=== PATIENT | male | born 1955 | race Caucasian/White ===

== ENCOUNTER 2018-10-09 11:26 | Emergency (ER) | payer BC, SELFPAY ==
[2018-10-09 11:58] VITALS: BP 140/90; PULSE 68; RESP 20; TEMP 36.6; O2SAT 98; BMI 26.0
--- NOTE | 2018-10-09 12:23 | ED.DIZZY ---
HPI - Dizziness <KELLY Tinoco - Last Filed: 10/09/18 22:29> General Chief Complaint: Dizziness Stated Complaint: Fall from vertigo/extreme back pain Time Seen by Provider: 10/09/18 12:05 Source: patient Mode of arrival: ambulatory Limitations: no limitations History of Present Illness HPI Narrative: 63-year-old male with history of borderline type 2 diabetes and is a nonsmoker here for complaint of having vertigo/dizziness last night causing have a ground level fall. He states he has had a history of having vertigo in the past. He states he has had vertigo on and off for the past couple of weeks. Fall happened last night at approximately midnight. He states that he was checking on the dog that was barking causing him having episode of dizziness with fall landing up against the bed frame. He reports pain into his thoracic back right rib cage and anterior ribcage where he believes he may landed on the bed frame. He states that he has been tolerating p.o. intake well with no nausea vomiting over the past couple of weeks. He denies any stressors or relievers of his dizziness/vertigo. He denies any headache. A denies any head injuries no neck pain. He is ambulatory into the emergency room. No loss of bladder or bowel control. Reports increased pain with palpation to the upper back and to the ribcage. He denies any syncope. MD complaint: dizziness and other Related Data Previous Rx's Medication Instructions Recorded hydrocodone-acetaminophen 1 tab PO Q6H PRN #10 tab 10/09/18 meclizine 25 mg PO BID-TID PRN #20 tab 10/09/18 Allergies Allergy/AdvReac Type Severity Reaction Status Date / Time No Known Drug Allergies Allergy Verified 10/09/18 12:03 Review of Systems <KELLY Tinoco - Last Filed: 10/09/18 22:29> Constitutional Denies chills, Denies fever(s), Denies lethargy and Denies weakness Eyes Denies change in vision, Denies eye discharge, Denies irritation and Denies loss of vision ENT Ears, Nose, Mouth, and Throat: Denies change in voice, Reports dizziness, Denies neck pain and Denies sore throat Cardiovascular Denies chest pain, Denies irregular heart rhythm, Denies lightheadedness, Denies palpitations, Denies dyspnea, Denies dyspnea on exertion and Denies orthopnea Respiratory Denies cough, Denies dyspnea, Denies dyspnea on exertion and Denies wheezing Gastrointestinal Gastrointestinal: Denies abdominal pain, Denies change in bowel habits, Denies diarrhea, Denies nausea and Denies vomiting Genitourinary Denies hematuria, Denies flank pain, Denies urinary incontinence and Denies urinary urgency Musculoskeletal Denies neck pain Comments: Pain into her thoracic back area and the right ribcage Neurologic Reports dizziness, Denies loss of vision and Denies weakness Endocrine Denies palpitations Hematologic/Lymphatic Denies easy bruising Allergic/Immunologic Denies wheezing Exam <KELLY Tinoco - Last Filed: 10/09/18 22:29> Initial Vital Signs Initial Vital Signs: Vital Signs Temperature 98 F 10/09/18 11:58 Pulse Rate 68 10/09/18 11:58 Respiratory Rate 20 10/09/18 11:58 Blood Pressure 140/90 10/09/18 11:58 Pulse Oximetry 98 10/09/18 11:58 Const General: cooperative and well developed Nutritional Appearance: well nourished Orientation: alert, awake, oriented x3 and not confused [facility] Mouth: oral mucosae normal and moist mucous membranes Eyes Conjunctivae: conjunctivae normal Sclera: sclerae normal Pupils: PERRL EOM: EOM intact bilaterally Neck Neck: normal visual inspection, trachea midline, No lymphadenopathy, No midline deformity and No JVD Lymphatic: No lymphedema Chest Other: Tenderness on palpation to anterior right chest and 2 right lateral chest wall. No signs of trauma. No ecchymosis. No deformities. Resp Effort & Inspection: normal respiratory effort, able to speak in complete sentences, no respiratory distress and no use of accessory muscles Auscultation: clear to auscultation bilaterally, no rales, no rhonchi and no wheezes Cardio Rate: regular rate Rhythm: regular rhythm Heart Sounds: no click, no gallops, no murmurs and no rubs Pulses: normal peripheral pulses GI Inspection: non-distended Palpation: soft, no hepatosplenomegaly, No guarding, No pulsatile mass and No tender Auscultation: normal bowel sounds Back/Spine/Pelvis Other: Tenderness on palpation to the paraspinals of the thoracic region no deformities no signs of trauma. Distal CMS is intact Skin General: no rashes or lesions noted, No jaundice and No petechiae Neuro General: alert, oriented x3, gait normal and no focal motor deficits Speech: speech normal <Leila Vallejo MD - Last Filed: 10/13/18 12:19> Initial Vital Signs Initial Vital Signs: Vital Signs Temperature 98 F 10/09/18 11:58 Pulse Rate 68 10/09/18 11:58 Respiratory Rate 20 10/09/18 11:58 Blood Pressure 140/90 10/09/18 11:58 Pulse Oximetry 98 10/09/18 11:58 Course <KELLY Tinoco - Last Filed: 10/09/18 22:29> Orders Ordered: Discontinued Medications Hydromorphone HCl (Dilaudid) 1 mg IV NOW ONE Stop: 10/09/18 12:39 Last Admin: 10/09/18 12:52 Dose: 1 mg Hydromorphone HCl (Dilaudid) 0.5 mg IV NOW ONE Stop: 10/09/18 15:28 Last Admin: 10/09/18 15:35 Dose: 0.5 mg Meclizine HCl (Antivert) 25 mg PO NOW ONE Stop: 10/09/18 12:35 Last Admin: 10/09/18 12:51 Dose: 25 mg Ondansetron HCl (Zofran) 4 mg IV NOW ONE Stop: 10/09/18 12:35 Last Admin: 10/09/18 12:52 Dose: 4 mg Vital Signs - 8 hr 10/09/18 14:30 10/09/18 16:05 Pulse Rate 56 L 64 Respiratory Rate 13 14 Blood Pressure 128/79 Blood Pressure [Right Arm] 133/80 Pulse Oximetry 99 100 <Leila Vallejo MD - Last Filed: 10/13/18 12:19> Orders Ordered: Discontinued Medications Hydromorphone HCl (Dilaudid) 1 mg IV NOW ONE Stop: 10/09/18 12:39 Last Admin: 10/09/18 12:52 Dose: 1 mg Hydromorphone HCl (Dilaudid) 0.5 mg IV NOW ONE Stop: 10/09/18 15:28 Last Admin: 10/09/18 15:35 Dose: 0.5 mg Meclizine HCl (Antivert) 25 mg PO NOW ONE Stop: 10/09/18 12:35 Last Admin: 10/09/18 12:51 Dose: 25 mg Ondansetron HCl (Zofran) 4 mg IV NOW ONE Stop: 10/09/18 12:35 Last Admin: 10/09/18 12:52 Dose: 4 mg Vital Signs - 8 hr 10/09/18 14:30 10/09/18 16:05 Pulse Rate 56 L 64 Respiratory Rate 13 14 Blood Pressure 128/79 Blood Pressure [Right Arm] 133/80 Pulse Oximetry 99 100 MDM - Dizziness <KELLY Tinoco - Last Filed: 10/09/18 22:29> Lab Data Result diagrams: 10/09/18 12:14 10/09/18 12:14 Lab Results 10/09/18 10/09/18 Range/Units 12:14 12:14 WBC 6.6 (4.5-11.0) X10^3/uL RBC 5.08 (4.5-5.9) X10^6/uL Hgb 16.5 (13.5-17.5) g/dL Hct 48.0 (41-53) % MCV 94.6 (80-100) fL MCH 32.6 (26-34) PG MCHC 34.5 (30-36) % RDW 12.8 (11.6-14.8) % Plt Count 277 (150-400) X10^3/uL Neut % (Auto) 68.7 (50-75) % Lymph % (Auto) 20.6 L (25-40) % [place] % (Auto) 8.8 (3-14) % Eos % (Auto) 1.3 L (2-4) % Baso % (Auto) 0.6 (0-2) % Neut # (Auto) 4500 (9184-5216) /uL Lymph # (Auto) 1400 (6011-6305) /uL [place] # (Auto) 600 (0-900) /uL Eos # (Auto) 100 (0-450) /uL Baso # (Auto) 0 (0-100) /uL Sodium 137 (137-145) mmol/L Potassium 5.0 (3.4-5.1) mmol/L Chloride 101 (98-107) mmol/L Carbon Dioxide 26 (22-32) mmol/L BUN 21 H (9-20) mg/dL Creatinine 0.90 (0.66-1.25) mg/dL Estimated GFR > 60.0 (>60) mL/min BUN/Creatinine Ratio 23.3 H (6-22) Glucose 108 (80-110) mg/dL Calcium 9.5 (8.4-10.2) mg/dL Total Bilirubin 1.0 (0.2-1.3) mg/dL AST 36 (17-59) IU/L ALT 38 (21-72) IU/L Alkaline Phosphatase 72 (38-126) U/L Troponin I < 0.012 (0.01-0.034) ng/mL Total Protein 8.3 H (6.3-8.2) g/dL Albumin 5.0 (3.5-5.0) g/dL Globulin 3.3 (1.7-4.1) g/dL Albumin/Globulin Ratio 1.5 (1.0-2.8) Imaging Data CT scan - head: Radiologist's impression: [address] [address] [address] Scan Report Signed Patient: Justice Keller LMR#: [id number] : 6Acct:[id number] Age/Sex: 63 / MDate of Service: 10/09/18 Loc: ED Accession Number: [id number] Procedure: CT head/brain wo con Ordering Provider: Jw Jerez PROCEDURE: CT HEAD/BRAIN WO CON INDICATIONS: Dizziness/vertigo TECHNIQUE: Noncontrast 4.5 mm thick angled axial sections acquired from the foramen magnum to the vertex, with coronal and sagittal reformats. For radiation dose reduction, the following was used: automated exposure control, adjustment of mA and/or kV according to patient size. COMPARISON: None. FINDINGS: Image quality: Excellent. CSF spaces: Basal cisterns are patent. No extra-axial fluid collections. Ventricles are normal in size and shape. Brain: No midline shift. No intracranial masses or hemorrhage. [place]-white matter interface is normal. Skull and face: Calvarium and visualized facial bones are intact, without suspicious lesions. Sinuses: Visualized sinuses and mastoids are clear. IMPRESSION: Negative head CT with no evidence of acute stroke, hemorrhage, or mass. Dictated by: Sourav Singh M.D. on 10/09/2018 at 13:31 Approved by: Sourav Singh M.D. on 10/09/2018 at 13:32 CT scan - chest: Radiologist's impression: [address] [address] [address] Scan Report Signed Patient: Justice Keller LMR#: [id number] : 6Acct:[id number] Age/Sex: 63 / MDate of Service: 10/09/18 Loc: ED Accession Number: [id number] Procedure: CT chest w con Ordering Provider: Jw Jerez PROCEDURE: CT CHEST W CON INDICATIONS: Pain into thoracic spine right ribcage anterior right chest TECHNIQUE: After the administration of intravenous contrast, 5 mm thick sections acquired from the pulmonary apices to the posterior costophrenic angles. 7 mm thick coronal and sagittal MIP reformats were acquired. For radiation dose reduction, the following was used: automated exposure control, adjustment of mA and/or kV according to patient size. COMPARISON: None. FINDINGS: Image quality: Excellent. Lungs and pleura: No acute air space opacities. No pleural effusions or pneumothorax. Central and peripheral airways are patent and normal in caliber. Mediastinum: Heart size is normal. No pericardial effusion. Minimal coronary calcifications. No mediastinal or hilar adenopathy by size criteria. Thoracic aorta and central pulmonary arteries are normal in size. Esophagus is normal in caliber. No hiatal hernia. Bones and chest wall: No suspicious bony lesions. No vertebral body compression fractures. No axillary or supraclavicular adenopathy by size criteria. Thyroid gland is unremarkable. Abdomen: Visualized upper abdominal solid organs appear normal. Upper abdominal bowel loops are normal in caliber. IMPRESSION: Minimal coronary artery calcifications. Otherwise unremarkable CT chest with contrast. Dictated by: Sourav Singh M.D. on 10/09/2018 at 13:32 Approved by: Sourav Singh M.D. on 10/09/2018 at 13:34 ECG Data Interpretation: EKG shows sinus bradycardia no ST elevation or depression. No ectopy. Ventricular rate of 53. Pr interval of 159. QRS duration 92. QTC 390. MDM Narrative Medical decision making narrative: CT of the head was obtained was negative for any acute findings. CT scan of the chest was also obtained was also negative for any acute findings. EKG shows sinus rhythm with no ST elevation or depression. No ectopy. Cardiac enzymes were obtained and were negative. CBC was obtained was unremarkable. Chem panel was also obtained was unremarkable. Signs and symptoms presents acute episode of his vertigo causing ground level fall last night. Use [id number] Tylenol or Motrin as needed for discomfort to right ribcage area which presents as a contusion. Meclizine as prescribed to help with the vertigo. Follow up with primary care provider the next few days for repeat evaluation. Small amount of [place] is prescribed for breakthrough pain. For any worsening symptoms return to the emergency room. <Leila Vallejo MD - Last Filed: 10/13/18 12:19> Lab Data Lab Results 10/09/18 10/09/18 Range/Units 12:14 12:14 WBC 6.6 (4.5-11.0) X10^3/uL RBC 5.08 (4.5-5.9) X10^6/uL Hgb 16.5 (13.5-17.5) g/dL Hct 48.0 (41-53) % MCV 94.6 (80-100) fL MCH 32.6 (26-34) PG MCHC 34.5 (30-36) % RDW 12.8 (11.6-14.8) % Plt Count 277 (150-400) X10^3/uL Neut % (Auto) 68.7 (50-75) % Lymph % (Auto) 20.6 L (25-40) % [place] % (Auto) 8.8 (3-14) % Eos % (Auto) 1.3 L (2-4) % Baso % (Auto) 0.6 (0-2) % Neut # (Auto) 4500 (0386-1364) /uL Lymph # (Auto) 1400 (5284-3956) /uL [place] # (Auto) 600 (0-900) /uL Eos # (Auto) 100 (0-450) /uL Baso # (Auto) 0 (0-100) /uL Sodium 137 (137-145) mmol/L Potassium 5.0 (3.4-5.1) mmol/L Chloride 101 (98-107) mmol/L Carbon Dioxide 26 (22-32) mmol/L BUN 21 H (9-20) mg/dL Creatinine 0.90 (0.66-1.25) mg/dL Estimated GFR > 60.0 (>60) mL/min BUN/Creatinine Ratio 23.3 H (6-22) Glucose 108 (80-110) mg/dL Calcium 9.5 (8.4-10.2) mg/dL Total Bilirubin 1.0 (0.2-1.3) mg/dL AST 36 (17-59) IU/L ALT 38 (21-72) IU/L Alkaline Phosphatase 72 (38-126) U/L Troponin I < 0.012 (0.01-0.034) ng/mL Total Protein 8.3 H (6.3-8.2) g/dL Albumin 5.0 (3.5-5.0) g/dL Globulin 3.3 (1.7-4.1) g/dL Albumin/Globulin Ratio 1.5 (1.0-2.8) Discharge Plan Departure Patient Disposition: Home Clinical Impression: Vertigo Discharge Date/Time: 10/09/18 16:05 Interventions: ED Discharge Assessment Last Done: 10/09/18 16:05 Instructions: DI for Vertigo Activity Restrictions/Additional Instructions: CT scan of the head was obtained was negative for any acute findings. CT scan of the chest was also obtained and was also negative for any acute findings. Pain into the right ribcage area right shoulder area presents as contusion. Use [id number] Tylenol or Motrin as needed for any discomfort. Small amount of [place] is prescribed for breakthrough pain use as directed. Meclizine as prescribed help with the vertigo also use as directed. Ensure you are drinking plenty of fluids. For any worsening symptoms return to the emergency room. Follow up with her primary care provider in the next couple days for re-evaluation. Prescriptions: New hydrocodone-acetaminophen 5-325 mg tablet 1 tab PO Q6H PRN (Reason: pain) Qty: 10 RF: 0 meclizine 25 mg tablet 25 mg PO BID-TID PRN (Reason: dizziness) Qty: 20 RF: 0 Referrals: [facility] [Provider Group]
[2018-10-09 12:30] VITALS: BP 142/76; PULSE 55; RESP 17; O2SAT 97
--- NOTE | 2018-10-09 12:34 | DI.CT.S_ITS ---
PROCEDURE: CT CHEST W CON INDICATIONS: Pain into thoracic spine right ribcage anterior right chest TECHNIQUE: After the administration of intravenous contrast, 5 mm thick sections acquired from the pulmonary apices to the posterior costophrenic angles. 7 mm thick coronal and sagittal MIP reformats were acquired. For radiation dose reduction, the following was used: automated exposure control, adjustment of mA and/or kV according to patient size. COMPARISON: None. FINDINGS: Image quality: Excellent. Lungs and pleura: No acute air space opacities. No pleural effusions or pneumothorax. Central and peripheral airways are patent and normal in caliber. Mediastinum: Heart size is normal. No pericardial effusion. Minimal coronary calcifications. No mediastinal or hilar adenopathy by size criteria. Thoracic aorta and central pulmonary arteries are normal in size. Esophagus is normal in caliber. No hiatal hernia. Bones and chest wall: No suspicious bony lesions. No vertebral body compression fractures. No axillary or supraclavicular adenopathy by size criteria. Thyroid gland is unremarkable. Abdomen: Visualized upper abdominal solid organs appear normal. Upper abdominal bowel loops are normal in caliber. IMPRESSION: Minimal coronary artery calcifications. Otherwise unremarkable CT chest with contrast. Dictated by: Sourav Singh M.D. on 10/09/2018 at 13:32 Approved by: Sourav Singh M.D. on 10/09/2018 at 13:34
--- NOTE | 2018-10-09 12:35 | DI.CT.S_ITS ---
PROCEDURE: CT HEAD/BRAIN WO CON INDICATIONS: Dizziness/vertigo TECHNIQUE: Noncontrast 4.5 mm thick angled axial sections acquired from the foramen magnum to the vertex, with coronal and sagittal reformats. For radiation dose reduction, the following was used: automated exposure control, adjustment of mA and/or kV according to patient size. COMPARISON: None. FINDINGS: Image quality: Excellent. CSF spaces: Basal cisterns are patent. No extra-axial fluid collections. Ventricles are normal in size and shape. Brain: No midline shift. No intracranial masses or hemorrhage. [place]-white matter interface is normal. Skull and face: Calvarium and visualized facial bones are intact, without suspicious lesions. Sinuses: Visualized sinuses and mastoids are clear. IMPRESSION: Negative head CT with no evidence of acute stroke, hemorrhage, or mass. Dictated by: Sourav Singh M.D. on 10/09/2018 at 13:31 Approved by: Sourav Singh M.D. on 10/09/2018 at 13:32
[2018-10-09 12:43] LABS: Add Manual Diff / Slide Review NO; Basophils Absolute Auto 0 /uL (0-100); Basophils Percent Auto 0.6 % (0-2); Eosinophils Absolute Auto 100 /uL (0-450); Eosinophils Percent Auto 1.3 % (2-4); Hemoglobin 16.5 g/dL (13.5-17.5); Lymphocytes Absolute Auto 1400 /uL (1100-4500); Lymphocytes Percent Auto 20.6 % (25-40); Mean Corpuscular HGB Conc 34.5 % (30-36); Mean Corpuscular Hemoglobin 32.6 PG (26-34); Mean Corpuscular Volume 94.6 fL (80-100); Monocytes Absolute Auto 600 /uL (0-900); Monocytes Percent Auto 8.8 % (3-14); Neutrophils Absolute Auto 4500 /uL (1500-7000); Neutrophils Percent Auto 68.7 % (50-75); Platelet Count 277 X10^3/uL (150-400); Red Blood Cell Count 5.08 X10^6/uL (4.5-5.9); Red Cell Distribution Width 12.8 % (11.6-14.8); White Blood Cell Count 6.6 X10^3/uL (4.5-11.0)
[2018-10-09 12:48] LABS: Alanine Aminotransferase 38 IU/L (21-72); Albumin Globulin Ratio 1.5 (1.0-2.8); Alkaline Phosphatase 72 U/L (38-126); Aspartate Aminotransferase 36 IU/L (17-59); BUN Creatinine Ratio 23.3 (6-22); Blood Urea Nitrogen 21 mg/dL (9-20); Calcium 9.5 mg/dL (8.4-10.2); Carbon Dioxide 26 mmol/L (22-32); Chloride 101 mmol/L (98-107); Estimated Glomerular Filt Rate > 60.0 mL/min (>60); Globulin 3.3 g/dL (1.7-4.1); Glucose 108 mg/dL (80-110); HEMOLYSIS 25 (0-50); Sodium 137 mmol/L (137-145); Total Protein 8.3 g/dL (6.3-8.2)
[2018-10-09] MEDS: MECLIZINE HCL 12.5 MG TABLET 25 MG PO (12:51)
[2018-10-09] MEDS: ONDANSETRON 4 MG/2 ML INJ IV (12:52)
[2018-10-09] MEDS: HYDROMORPHONE 1 MG INJ IV (12:52)
[2018-10-09 12:59] LABS: Troponin I < 0.012 ng/mL (0.01-0.034)
--- NOTE | 2018-10-09 13:33 | ED_ITS ---
HPI - Dizziness <KELLY Tinoco - Last Filed: 10/09/18 22:29> General Chief Complaint: Dizziness Stated Complaint: Fall from vertigo/extreme back pain Time Seen by Provider: 10/09/18 12:05 Source: patient Mode of arrival: ambulatory Limitations: no limitations History of Present Illness HPI Narrative: 63-year-old male with history of borderline type 2 diabetes and is a nonsmoker here for complaint of having vertigo/dizziness last night causing have a ground level fall. He states he has had a history of having vertigo in the past. He states he has had vertigo on and off for the past couple of weeks. Fall happened last night at approximately midnight. He states that he was checking on the dog that was barking causing him having episode of dizziness with fall landing up against the bed frame. He reports pain into his thoracic back right rib cage and anterior ribcage where he believes he may landed on the bed frame. He states that he has been tolerating p.o. intake well with no nausea vomiting over the past couple of weeks. He denies any stressors or relievers of his dizziness/vertigo. He denies any headache. A denies any head injuries no neck pain. He is ambulatory into the emergency room. No loss of bladder or bowel control. Reports increased pain with palpation to the upper back and to the ribcage. He denies any syncope. MD complaint: dizziness and other Related Data Previous Rx's Medication Instructions Recorded hydrocodone-acetaminophen 1 tab PO Q6H PRN #10 tab 10/09/18 meclizine 25 mg PO BID-TID PRN #20 tab 10/09/18 Allergies Allergy/AdvReac Type Severity Reaction Status Date / Time No Known Drug Allergies Allergy Verified 10/09/18 12:03 Review of Systems <KELLY Tinoco - Last Filed: 10/09/18 22:29> Constitutional Denies chills, Denies fever(s), Denies lethargy and Denies weakness Eyes Denies change in vision, Denies eye discharge, Denies irritation and Denies loss of vision ENT Ears, Nose, Mouth, and Throat: Denies change in voice, Reports dizziness, Denies neck pain and Denies sore throat Cardiovascular Denies chest pain, Denies irregular heart rhythm, Denies lightheadedness, Denies palpitations, Denies dyspnea, Denies dyspnea on exertion and Denies orthopnea Respiratory Denies cough, Denies dyspnea, Denies dyspnea on exertion and Denies wheezing Gastrointestinal Gastrointestinal: Denies abdominal pain, Denies change in bowel habits, Denies diarrhea, Denies nausea and Denies vomiting Genitourinary Denies hematuria, Denies flank pain, Denies urinary incontinence and Denies urinary urgency Musculoskeletal Denies neck pain Comments: Pain into her thoracic back area and the right ribcage Neurologic Reports dizziness, Denies loss of vision and Denies weakness Endocrine Denies palpitations Hematologic/Lymphatic Denies easy bruising Allergic/Immunologic Denies wheezing Exam <KELLY Tinoco - Last Filed: 10/09/18 22:29> Initial Vital Signs Initial Vital Signs: Vital Signs Temperature 98 F 10/09/18 11:58 Pulse Rate 68 10/09/18 11:58 Respiratory Rate 20 10/09/18 11:58 Blood Pressure 140/90 10/09/18 11:58 Pulse Oximetry 98 10/09/18 11:58 Const General: cooperative and well developed Nutritional Appearance: well nourished Orientation: alert, awake, oriented x3 and not confused [facility] Mouth: oral mucosae normal and moist mucous membranes Eyes Conjunctivae: conjunctivae normal Sclera: sclerae normal Pupils: PERRL EOM: EOM intact bilaterally Neck Neck: normal visual inspection, trachea midline, No lymphadenopathy, No midline deformity and No JVD Lymphatic: No lymphedema Chest Other: Tenderness on palpation to anterior right chest and 2 right lateral chest wall. No signs of trauma. No ecchymosis. No deformities. Resp Effort & Inspection: normal respiratory effort, able to speak in complete sentences, no respiratory distress and no use of accessory muscles Auscultation: clear to auscultation bilaterally, no rales, no rhonchi and no wheezes Cardio Rate: regular rate Rhythm: regular rhythm Heart Sounds: no click, no gallops, no murmurs and no rubs Pulses: normal peripheral pulses GI Inspection: non-distended Palpation: soft, no hepatosplenomegaly, No guarding, No pulsatile mass and No tender Auscultation: normal bowel sounds Back/Spine/Pelvis Other: Tenderness on palpation to the paraspinals of the thoracic region no deformities no signs of trauma. Distal CMS is intact Skin General: no rashes or lesions noted, No jaundice and No petechiae Neuro General: alert, oriented x3, gait normal and no focal motor deficits Speech: speech normal <Leila Vallejo MD - Last Filed: 10/13/18 12:19> Initial Vital Signs Initial Vital Signs: Vital Signs Temperature 98 F 10/09/18 11:58 Pulse Rate 68 10/09/18 11:58 Respiratory Rate 20 10/09/18 11:58 Blood Pressure 140/90 10/09/18 11:58 Pulse Oximetry 98 10/09/18 11:58 Course <KELLY Tinoco - Last Filed: 10/09/18 22:29> Orders Ordered: Discontinued Medications Hydromorphone HCl (Dilaudid) 1 mg IV NOW ONE Stop: 10/09/18 12:39 Last Admin: 10/09/18 12:52 Dose: 1 mg Hydromorphone HCl (Dilaudid) 0.5 mg IV NOW ONE Stop: 10/09/18 15:28 Last Admin: 10/09/18 15:35 Dose: 0.5 mg Meclizine HCl (Antivert) 25 mg PO NOW ONE Stop: 10/09/18 12:35 Last Admin: 10/09/18 12:51 Dose: 25 mg Ondansetron HCl (Zofran) 4 mg IV NOW ONE Stop: 10/09/18 12:35 Last Admin: 10/09/18 12:52 Dose: 4 mg Vital Signs - 8 hr 10/09/18 14:30 10/09/18 16:05 Pulse Rate 56 L 64 Respiratory Rate 13 14 Blood Pressure 128/79 Blood Pressure [Right Arm] 133/80 Pulse Oximetry 99 100 <Leila Vallejo MD - Last Filed: 10/13/18 12:19> Orders Ordered: Discontinued Medications Hydromorphone HCl (Dilaudid) 1 mg IV NOW ONE Stop: 10/09/18 12:39 Last Admin: 10/09/18 12:52 Dose: 1 mg Hydromorphone HCl (Dilaudid) 0.5 mg IV NOW ONE Stop: 10/09/18 15:28 Last Admin: 10/09/18 15:35 Dose: 0.5 mg Meclizine HCl (Antivert) 25 mg PO NOW ONE Stop: 10/09/18 12:35 Last Admin: 10/09/18 12:51 Dose: 25 mg Ondansetron HCl (Zofran) 4 mg IV NOW ONE Stop: 10/09/18 12:35 Last Admin: 10/09/18 12:52 Dose: 4 mg Vital Signs - 8 hr 10/09/18 14:30 10/09/18 16:05 Pulse Rate 56 L 64 Respiratory Rate 13 14 Blood Pressure 128/79 Blood Pressure [Right Arm] 133/80 Pulse Oximetry 99 100 MDM - Dizziness <KELLY Tinoco - Last Filed: 10/09/18 22:29> Lab Data Result diagrams: 10/09/18 12:14 10/09/18 12:14 Lab Results 10/09/18 10/09/18 Range/Units 12:14 12:14 WBC 6.6 (4.5-11.0) X10^3/uL RBC 5.08 (4.5-5.9) X10^6/uL Hgb 16.5 (13.5-17.5) g/dL Hct 48.0 (41-53) % MCV 94.6 (80-100) fL MCH 32.6 (26-34) PG MCHC 34.5 (30-36) % RDW 12.8 (11.6-14.8) % Plt Count 277 (150-400) X10^3/uL Neut % (Auto) 68.7 (50-75) % Lymph % (Auto) 20.6 L (25-40) % Mckinley % (Auto) 8.8 (3-14) % Eos % (Auto) 1.3 L (2-4) % Baso % (Auto) 0.6 (0-2) % Neut # (Auto) 4500 (5195-5857) /uL Lymph # (Auto) 1400 (6934-5869) /uL Mckinley # (Auto) 600 (0-900) /uL Eos # (Auto) 100 (0-450) /uL Baso # (Auto) 0 (0-100) /uL Sodium 137 (137-145) mmol/L Potassium 5.0 (3.4-5.1) mmol/L Chloride 101 (98-107) mmol/L Carbon Dioxide 26 (22-32) mmol/L BUN 21 H (9-20) mg/dL Creatinine 0.90 (0.66-1.25) mg/dL Estimated GFR > 60.0 (>60) mL/min BUN/Creatinine Ratio 23.3 H (6-22) Glucose 108 (80-110) mg/dL Calcium 9.5 (8.4-10.2) mg/dL Total Bilirubin 1.0 (0.2-1.3) mg/dL AST 36 (17-59) IU/L ALT 38 (21-72) IU/L Alkaline Phosphatase 72 (38-126) U/L Troponin I < 0.012 (0.01-0.034) ng/mL Total Protein 8.3 H (6.3-8.2) g/dL Albumin 5.0 (3.5-5.0) g/dL Globulin 3.3 (1.7-4.1) g/dL Albumin/Globulin Ratio 1.5 (1.0-2.8) Imaging Data CT scan - head: Radiologist's impression: [address] [address] [address] Scan Report Signed Patient: Justice Keller LMR#: [id number] : 6Acct:[id number] Age/Sex: 63 / MDate of Service: 10/09/18 Loc: ED Accession Number: [id number] Procedure: CT head/brain wo con Ordering Provider: Jw Jerez PROCEDURE: CT HEAD/BRAIN WO CON INDICATIONS: Dizziness/vertigo TECHNIQUE: Noncontrast 4.5 mm thick angled axial sections acquired from the foramen magnum to the vertex, with coronal and sagittal reformats. For radiation dose reduction, the following was used: automated exposure control, adjustment of mA and/or kV according to patient size. COMPARISON: None. FINDINGS: Image quality: Excellent. CSF spaces: Basal cisterns are patent. No extra-axial fluid collections. Ventricles are normal in size and shape. Brain: No midline shift. No intracranial masses or hemorrhage. [place]-white matter interface is normal. Skull and face: Calvarium and visualized facial bones are intact, without suspicious lesions. Sinuses: Visualized sinuses and mastoids are clear. IMPRESSION: Negative head CT with no evidence of acute stroke, hemorrhage, or mass. Dictated by: Sourav Singh M.D. on 10/09/2018 at 13:31 Approved by: Sourav Singh M.D. on 10/09/2018 at 13:32 CT scan - chest: Radiologist's impression: [address] [address] [address] Scan Report Signed Patient: Justice Keller LMR#: [id number] : 6Acct:[id number] Age/Sex: 63 / MDate of Service: 10/09/18 Loc: ED Accession Number: [id number] Procedure: CT chest w con Ordering Provider: Jw Jerez PROCEDURE: CT CHEST W CON INDICATIONS: Pain into thoracic spine right ribcage anterior right chest TECHNIQUE: After the administration of intravenous contrast, 5 mm thick sections acquired from the pulmonary apices to the posterior costophrenic angles. 7 mm thick coronal and sagittal MIP reformats were acquired. For radiation dose reduction, the following was used: automated exposure control, adjustment of mA and/or kV according to patient size. COMPARISON: None. FINDINGS: Image quality: Excellent. Lungs and pleura: No acute air space opacities. No pleural effusions or pneumothorax. Central and peripheral airways are patent and normal in caliber. Mediastinum: Heart size is normal. No pericardial effusion. Minimal coronary calcifications. No mediastinal or hilar adenopathy by size criteria. Thoracic aorta and central pulmonary arteries are normal in size. Esophagus is normal in caliber. No hiatal hernia. Bones and chest wall: No suspicious bony lesions. No vertebral body compression fractures. No axillary or supraclavicular adenopathy by size criteria. Thyroid gland is unremarkable. Abdomen: Visualized upper abdominal solid organs appear normal. Upper abdominal bowel loops are normal in caliber. IMPRESSION: Minimal coronary artery calcifications. Otherwise unremarkable CT chest with contrast. Dictated by: Sourav Singh M.D. on 10/09/2018 at 13:32 Approved by: Sourav Singh M.D. on 10/09/2018 at 13:34 ECG Data Interpretation: EKG shows sinus bradycardia no ST elevation or depression. No ectopy. Ventricular rate of 53. Pr interval of 159. QRS duration 92. QTC 390. MDM Narrative Medical decision making narrative: CT of the head was obtained was negative for any acute findings. CT scan of the chest was also obtained was also negative for any acute findings. EKG shows sinus rhythm with no ST elevation or depression. No ectopy. Cardiac enzymes were obtained and were negative. CBC was obtained was unremarkable. Chem panel was also obtained was unremarkable. Signs and symptoms presents acute episode of his vertigo causing ground level fall last night. Use [id number] Tylenol or Motrin as needed for discomfort to right ribcage area which presents as a contusion. Meclizine as prescribed to help with the vertigo. Follow up with primary care provider the next few days for repeat evaluation. Small amount of [place] is prescribed for breakthrough pain. For any worsening symptoms return to the emergency room. <Leila Vallejo MD - Last Filed: 10/13/18 12:19> Lab Data Lab Results 10/09/18 10/09/18 Range/Units 12:14 12:14 WBC 6.6 (4.5-11.0) X10^3/uL RBC 5.08 (4.5-5.9) X10^6/uL Hgb 16.5 (13.5-17.5) g/dL Hct 48.0 (41-53) % MCV 94.6 (80-100) fL MCH 32.6 (26-34) PG MCHC 34.5 (30-36) % RDW 12.8 (11.6-14.8) % Plt Count 277 (150-400) X10^3/uL Neut % (Auto) 68.7 (50-75) % Lymph % (Auto) 20.6 L (25-40) % Mckinley % (Auto) 8.8 (3-14) % Eos % (Auto) 1.3 L (2-4) % Baso % (Auto) 0.6 (0-2) % Neut # (Auto) 4500 (6710-3772) /uL Lymph # (Auto) 1400 (0989-9483) /uL Mckinley # (Auto) 600 (0-900) /uL Eos # (Auto) 100 (0-450) /uL Baso # (Auto) 0 (0-100) /uL Sodium 137 (137-145) mmol/L Potassium 5.0 (3.4-5.1) mmol/L Chloride 101 (98-107) mmol/L Carbon Dioxide 26 (22-32) mmol/L BUN 21 H (9-20) mg/dL Creatinine 0.90 (0.66-1.25) mg/dL Estimated GFR > 60.0 (>60) mL/min BUN/Creatinine Ratio 23.3 H (6-22) Glucose 108 (80-110) mg/dL Calcium 9.5 (8.4-10.2) mg/dL Total Bilirubin 1.0 (0.2-1.3) mg/dL AST 36 (17-59) IU/L ALT 38 (21-72) IU/L Alkaline Phosphatase 72 (38-126) U/L Troponin I < 0.012 (0.01-0.034) ng/mL Total Protein 8.3 H (6.3-8.2) g/dL Albumin 5.0 (3.5-5.0) g/dL Globulin 3.3 (1.7-4.1) g/dL Albumin/Globulin Ratio 1.5 (1.0-2.8) Discharge Plan Departure Patient Disposition: Home Clinical Impression: Vertigo Discharge Date/Time: 10/09/18 16:05 Interventions: ED Discharge Assessment Last Done: 10/09/18 16:05 Instructions: DI for Vertigo Activity Restrictions/Additional Instructions: CT scan of the head was obtained was negative for any acute findings. CT scan of the chest was also obtained and was also negative for any acute findings. Pain into the right ribcage area right shoulder area presents as contusion. Use [id number] Tylenol or Motrin as needed for any discomfort. Small amount of [place] is prescribed for breakthrough pain use as directed. Meclizine as prescribed help with the vertigo also use as directed. Ensure you are drinking plenty of fluids. For any worsening symptoms return to the emergency room. Follow up with her primary care provider in the next couple days for re- evaluation. Prescriptions: New hydrocodone-acetaminophen 5-325 mg tablet 1 tab PO Q6H PRN (Reason: pain) Qty: 10 RF: 0 meclizine 25 mg tablet 25 mg PO BID-TID PRN (Reason: dizziness) Qty: 20 RF: 0 Referrals: [facility] [Provider Group]
[2018-10-09 13:38] VITALS: BP 128/76; PULSE 54; RESP 13; O2SAT 95
[2018-10-09 14:00] VITALS: BP 137/70; PULSE 55; RESP 12; O2SAT 94
[2018-10-09 14:30] VITALS: BP 133/80; PULSE 56; RESP 13; O2SAT 99
[2018-10-09] MEDS: HYDROMORPHONE 1 MG INJ 0.5 MG IV (15:35)
[2018-10-09 16:05] VITALS: BP 128/79; PULSE 64; RESP 14; O2SAT 100
== END 2018-10-09 16:05 | disposition home or self-care (01) ==
PROVIDERS: Emergency Provider Nurse Practitioner Family
DX: R42 Dizziness and giddiness (principal); W18.39XA Other fall on same level, initial encounter
CPT/HCPCS: 36591; 70450; 71260; 80053; 84484; 85025; 93005; 96374; 96375; 96376; 99283; 99285; J1170; J2405; Q9967

== ENCOUNTER 2019-07-31 08:43 | Emergency (ER) | payer OTHER, SELFPAY ==
[2019-07-31 08:55] VITALS: BP 146/76; PULSE 66; RESP 16; TEMP 36.3; O2SAT 100
--- NOTE | 2019-07-31 09:02 | DI.RAD.S_ITS ---
PROCEDURE: XR SHOULDER RT MIN 2V INDICATIONS: pain 1 month TECHNIQUE: 2 views of the shoulder were acquired. COMPARISON: None. FINDINGS: Bones: No fractures or dislocations. No suspicious bony lesions. Visualized ribs appear intact. Moderate to severe acromioclavicular degenerative narrowing. The humeral head is high riding. Soft tissues: No suspicious soft tissue calcifications. IMPRESSION: 1. Moderate to severe acromioclavicular degenerative narrowing. 2. High riding appearance of the humeral head, which can be indicative of rotator cuff pathology. Dictated by: Akua Leos M.D. on 07/31/2019 at 9:40 Approved by: Akua Leos M.D. on 07/31/2019 at 9:41
--- NOTE | 2019-07-31 09:37 | ED_ITS ---
HPI - Extremity Problem General Chief complaint: Extremity Problem,Nontraumatic Stated complaint: Right shoulder pain Time Seen by Provider: 07/31/19 08:58 Source: patient Mode of arrival: Ambulatory Limitations: no limitations History of Present Illness HPI Narrative: Patient is 64-year-old male who presents with right shoulder pain ongoing for 1 month. He states that he was in physical therapy about a month ago for tendinitis in his forearm and about the time that stopped his shoulder started hurting. He has been taking Tylenol and ibuprofen for it without any relief. It does hurt with movement but his movement is not restricted he has no numbness tingling or weakness. No other injuries. MD Complaint: extremity pain Pain Consistency: constant Location: right Quality: aching Related Data Previous Rx's Medication Instructions Recorded hydrocodone-acetaminophen 1 tab PO Q6H PRN #10 tab 10/09/18 meclizine 25 mg PO BID-TID PRN #20 tab 10/09/18 Allergies Allergy/AdvReac Type Severity Reaction Status Date / Time No Known Drug Allergies Allergy Verified 10/09/18 12:03 Review of Systems Review of Systems Narrative: GENERAL: Denies chills,fever HEENT: Denies throat pain RESPIRATORY: Denies dyspnea, cough, wheezing CARDIOVASCULAR: Denies chest pain, palpitations GASTROINTESTINAL: Denies nausea, vomiting MUSCULOSKELETAL: See HPI SKIN: No rash, no laceration, no pruritus NEUROLOGIC: Denies weakness, dizziness, headache, numbness 8 point review of systems is negative except for those stated above and HPI Patient History Medical History Diabetes (Acute) Social History Smoking Status: Current every day smoker Smoking Status: Current every day smoker Exam Initial Vital Signs Initial Vital Signs: Vital Signs Temperature 97.3 F L 07/31/19 08:55 Pulse Rate 66 07/31/19 08:55 Respiratory Rate 16 07/31/19 08:55 Blood Pressure 146/76 H 07/31/19 08:55 Pulse Oximetry 100 07/31/19 08:55 GENERAL: Well-appearing, well-nourished and in no acute distress. HEENT: Head atraumatic,EOMI, pupils reactive, face symmetric, moist mucous membranes CARDIOVASCULAR: Regular rate and rhythm without murmurs, rubs or gallops. RESPIRATORY: Breath sounds equal bilaterally, no wheezes rales or rhonchi. ABDOMEN: Soft, nontender. Normoactive bowel sounds all 4 quadrants. No guarding or rebound. EXTREMITIES: Normal range of motion, no clubbing or edema. Neurovascularly intact Right shoulder slight tender to touch, full range of motion but movement is painful. [employer] Lead strength equal bilaterally sensation over the deltoid intact NEUROLOGICAL: Alert and oriented x4.Normal gait and speech. SKIN: Warm, dry, no laceration, no petechiae, no rashes or lesions. Course Orders Ordered: ED Orders 07/31/19 09:02 XR shoulder RT min 2V Stat Discontinued Medications Ketorolac Tromethamine (Toradol) 30 mg IM NOW ONE Stop: 07/31/19 09:03 Last Admin: 07/31/19 09:52 Dose: 30 mg Documented by: MARK Vital Signs Vital signs: Vital Signs - 8 hr 07/31/19 08:55 Temperature 97.3 F L Pulse Rate 66 Respiratory Rate 16 Blood Pressure 146/76 H Pulse Oximetry 100 [facility] - Extremity (Nontraumatic) Imaging Data Extremity x-ray #1: Radiologist's Impression: PROCEDURE: XR SHOULDER RT MIN 2V INDICATIONS: pain 1 month TECHNIQUE: 2 views of the shoulder were acquired. COMPARISON: None. FINDINGS: Bones: No fractures or dislocations. No suspicious bony lesions. Visualized ribs appear intact. Moderate to severe acromioclavicular degenerative narrowing. The humeral head is high riding. Soft tissues: No suspicious soft tissue calcifications. IMPRESSION: 1. Moderate to severe acromioclavicular degenerative narrowing. 2. High riding appearance of the humeral head, which can be indicative of rotator cuff pathology. Dictated by: Akua Leos M.D. on 07/31/2019 at 9:40 Approved by: Akua Leos M.D. on 07/31/2019 at 9:41 [facility] Narrative Medical decision making narrative: Patient has appointment with PCP in 1 week. I recommended he get an MRI concern for possible rotator cuff injury. However I did recommend that he move it as tolerated. Discharge Plan Departure Patient Disposition: Home Clinical Impression: Acute pain of right shoulder Discharge Date/Time: 07/31/19 09:55 Instructions: DI for Shoulder Pain Activity Restrictions/Additional Instructions: *You have been diagnosed with right shoulder pain *What to do: At this time no abnormality in her x-ray. He may require physical therapy or even an MRI which can be done as an outpatient. If you should need something stronger for pain at please see your primary care provider *Continue to take medications as directed Ibuprofen 800 mg every 8 hours if needed pain Tylenol 650 mg every 4-6 hours if needed for [id number]-[id number] pain *Follow up with your primary care provider in 2-3 days *Return to ER if you should have weakness numbness sting or any new, worsening or concerning symptoms Prescriptions: No Action hydrocodone-acetaminophen 5-325 mg tablet 1 tab PO Q6H PRN (Reason: pain) Qty: 10 RF: 0 meclizine 25 mg tablet 25 mg PO BID-TID PRN (Reason: dizziness) Qty: 20 RF: 0
[2019-07-31] MEDS: KETOROLAC 60 MG/2 ML VIAL 30 MG IM (09:52)
== END 2019-07-31 09:55 | disposition home or self-care (01) ==
PROVIDERS: Emergency Provider Emergency Medicine
DX: M25.511 Pain in right shoulder (principal)
CPT/HCPCS: 73030; 96372; 99281; 99283; J1885

== ENCOUNTER 2019-08-28 12:40 | Day surgery (SDC) | payer OTHER, SELFPAY ==
[2019-08-28] MEDS: SODIUM CHLORIDE 0.9% 1,000 ML 200 ML IV (12:52)
[2019-08-28 12:58] VITALS: BP 127/80; PULSE 75; RESP 16; TEMP 36; O2SAT 98; BMI 25.0
--- NOTE | 2019-08-28 13:18 | PM.HP.1 ---
History of Present Illness History of Present Illness Date Patient Seen: 08/28/19 Time Patient Seen: 13:25 Chief complaint: [id number] Narrative: Patient presents for colorectal screening. They reveals colonoscopy 5 years ago significant for adenomatous polyp which was removed No personal or family history of colon cancer. On further history denies any recent gastrointestinal symptoms. No nausea, vomiting, abdominal pain, loss of appetite, unexplained weight loss, change in bowel habits, diarrhea, constipation, melena, hematochezia, or bright red blood per rectum. Patient History Medical History Diabetes (Acute) Skin cancer (Acute) Family & Social History Social History: household members spouse Tobacco & Substance use: Smoking Status Current every day smoker Meds Home Medications and Allergies Home Medications Medication Instructions Recorded Confirmed Type hydrocodone-acetaminophen 1 tab PO Q6H PRN #10 tab 10/09/18 Rx meclizine 25 mg PO BID-TID PRN #20 tab 10/09/18 Rx citalopram [Celexa] 20 mg PO DAILY 08/28/19 08/28/19 History gabapentin 100 mg PO QID 08/28/19 08/28/19 History metformin 500 mg PO DAILY 08/28/19 08/28/19 History Allergies Allergy/AdvReac Type Severity Reaction Status Date / Time No Known Drug Allergies Allergy Verified 08/28/19 12:56 Review of Systems Review of Systems Narrative: A 10 point review of systems is negative except as noted in the HPI Exam Vital Signs (past 8 hours): - 08/28/19 12:58 Temperature 96.8 F L Pulse Rate 75 Respiratory Rate 16 Blood Pressure 127/80 Pulse Oximetry 98 Oxygen Delivery Method Room Air Narrative Exam Narrative: General-no acute distress, well nourished HEENT-moist mucous membranes, no scleral icterus Neck-supple, no lymphadenopathy Chest- non labored respirations, clear to auscultation bilaterally Cardiac-regular rate no peripheral edema Abdomen-soft, nontender, non distended Extremities-warm, well perfused Neurological-alert and oriented, no focal deficits Assessment & Plan Assessment & Plan narrative: The patient requires colorectal screening and colonoscopy is recommended. Technical details were discussed. Risks, benefits, alternatives explained. Risks including but not limited to myocardial infarction, aspiration, bleeding, pain, missed lesion, incomplete examination, need for further radiographic studies, colonic perforation, and need for major abdominal surgery were discussed. All questions were answered to their satisfaction, and they are in agreement with this plan.
[2019-08-28] MEDS: MIDAZOLAM 5 MG/5 ML VIAL IV (13:29)
[2019-08-28] MEDS: fentaNYL 250 MCG/5 ML INJ IV (13:30)
[2019-08-28 13:54] VITALS: BP 115/78; PULSE 74; RESP 19; TEMP 36.6; O2SAT 96
--- NOTE | 2019-08-28 13:56 | PM.OP.ENDO ---
Operative Date/Time/Diagnoses Date of procedure: 08/28/19 Time of procedure: 13:56 Pre-op diagnosis: Screening colonoscopy Post-op diagnosis: same Procedure & Clinicians Study performed: Colonoscopy Indications: 64-year-old male last colonoscopy 5 years ago demonstrated adenomatous polyps here for routine screening Surgeon: Denzel Campa Procedure Notes SCOAP/Timeout: Performed Procedure in detail: Patient placed in left lateral decubitus position. Time out was performed. Procedural sedation was administered with Versed and Fentanyl. A rectal exam demonstrated no external hemorrhoids no internal masses. Colonoscopy scope was placed into the rectum and advanced through the colon to the cecum. The ileocecal valve was identified. The scope was then slowly withdrawn examining colon thoroughly in all directions. The colonoscopy was notable for the following 1. Sigmoid diverticulosis 2. No masses or polyps 3. Grade 1 internal hemorrhoids 4. Quality of prep excellent Scope withdrawal time: 7 Sedation minutes: 19 Findings: diverticulosis and internal hemorrhoids Specimen(s): none sent Complications: none Impression: Diverticulosis Post-procedure Recommendations: Colonscopy in 10 years Disposition: same day surgery
[2019-08-28 13:59] VITALS: BP 113/76; PULSE 70; RESP 15; O2SAT 94
[2019-08-28 14:05] VITALS: BP 107/62; PULSE 74; RESP 16; TEMP 36.5; O2SAT 97
== END 2019-08-28 14:14 | disposition home or self-care (01) ==
PROVIDERS: Visit Provider Surgery
PROC: 0DJD8ZZ Inspection of Lower Intestinal Tract, Via Natural or Artificial Opening Endoscopic (ICD-10-PCS; CPT 45378; principal; 2019-08-28 13:45)
DX: Z12.11 Encounter for screening for malignant neoplasm of colon (principal); Z86.010 Personal history of colon polyps; F17.210 Nicotine dependence, cigarettes, uncomplicated; E11.9 Type 2 diabetes mellitus without complications; Z79.84 Long term (current) use of oral hypoglycemic drugs; K64.0 First degree hemorrhoids; K57.30 Diverticulosis of large intestine without perforation or abscess without bleeding
CPT/HCPCS: 45378; 99152; J2250; J3010

== ENCOUNTER → 2020-01-27 13:40 | Outpatient (CLI) | payer OTHER, SELFPAY ==
--- NOTE | 2020-01-27 | DI.MRI.S_ITS ---
PROCEDURE: MR SHOULDER RT WO CON INDICATIONS: Impingment sydrome of right shoulder TECHNIQUE: Noncontrast oblique coronal T2 fast spin echo with fat saturation, oblique sagittal T1 spin echo and T2 fast spin echo with fat saturation, axial T1 spin echo and T2 fast spin echo with fat saturation through the shoulder. COMPARISON: [facility], CR, XR SHOULDER 2+ VIEWS RIGHT, 10/11/2019, 12:59. FINDINGS: Image quality: Diagnostic. Rotator cuff: There is a small focal high-grade bursal surface partial thickness tear identified along the posterior aspect of the distal supraspinatus tendon near its junction with the infraspinatus tendon (image 9, series 10 and image 10, series 8). A small perforation within this region may be present. No significant retraction is identified. There is thickening and increased signal involving both the supraspinatus and infraspinatus tendons. The subscapularis and teres minor tendons are intact. There is no significant atrophy of the rotator cuff muscles. Bones and bursae: No acute fracture, dislocation, or suspicious osseous lesion is identified. However, there is moderate focal marrow edema evident involving the greater tuberosity near the supraspinatus tendon insertion, which may represent a small bone contusion. There mild degenerative changes of the glenohumeral joint. There is a small glenohumeral joint effusion. Severe degenerative changes of the acromioclavicular joint are present with prominent undersurface osteophytes and degenerative/reactive marrow changes. Large amount of fluid is contained within the subacromial subdeltoid bursa. Capsule and soft tissues: Evaluation of the labrum and the glenohumeral ligaments is suboptimal without intra-articular contrast. However, heterogeneity and increased signal is identified circumferentially about the labrum. No large paralabral cysts or detached labral fragments are identified. Increased signal within the soft tissue surrounding the inferior glenohumeral ligament is incidentally noted. The long head of the biceps tendon is normally positioned within the bicipital groove and is noted to be intact. There is slight increased signal along its intra-articular course. IMPRESSION: 1. Small focal high-grade bursal surface partial-thickness tear of the posterior distal supraspinatus tendon with corresponding tendinopathy. 2. Moderate infraspinatus tendinopathy without significant bearing. 3. Severe degenerative changes of the acromioclavicular joint may be resulting in subacromial impingement and clinical correlation is recommended. 4. Fluid within the subacromial subdeltoid bursa is likely reactive to the partial-thickness supraspinatus tendon tear. Please correlate clinically to exclude bursitis. 5. Edema about the inferior glenohumeral ligament is suspicious for a ligamentous sprain, but may be seen in the setting of adhesive capsulitis. 6. Degenerative changes of the labrum without a displaced tear evident. 7. Mild tendinopathy involving intra-articular portion of the biceps tendon. 8. Possible bone contusion of the greater tuberosity of the humeral head. No fractures. Dictated by: Vicente Baumann M.D. on 01/29/2020 at 11:22 Approved by: Vicente Baumann M.D. on 01/29/2020 at 11:30
== END ==
PROVIDERS: Referring Provider Physician Assistant Surgical; Visit Provider Physician Assistant Surgical
DX: M75.41 Impingement syndrome of right shoulder (principal); M67.911 Unspecified disorder of synovium and tendon, right shoulder; M75.111 Incomplete rotator cuff tear or rupture of right shoulder, not specified as traumatic
CPT/HCPCS: 73221

== ENCOUNTER 2020-07-24 15:15 | Outpatient (RCR) | payer OTHER, SELFPAY ==
--- NOTE | 2020-04-26 14:57 | PT.OIE ---
Current Diagnoses Pain in right shoulder (04/26/20) Stiffness of right shoulder, not elsewhere classified (04/26/20) Adhesive capsulitis of right shoulder (04/26/20) Other shoulder lesions, right shoulder (04/26/20) Past Medical History (Last Reviewed 08/28/19 @ 13:25 by Denzel Campa MD) Diabetes (Acute) Skin cancer (Acute) Visit Care Team Role Provider Type Luis Acevedo PA-C Primary Care Provider Non-Staff Specialty: Family Practice Address: [address] [place] [address], [address], [place], [address] Email: Family Provider Specialty: Address: Phone: Fax: Email: Valente Singh DO Attending Provider Non-Staff Referring Provider Specialty: Orthopedics Address: [address] [place], [address] Email: Physical Therapy Initial Evaluation PT-OP-A Visit Information Start: 04/26/20 14:22 Freq: Status: Active Protocol: Document 04/26/20 13:45 DCW (Rec: 04/26/20 14:57 [facility] [id number]) Out-Patient Physical Therapy Visit Information Visit Information Visit Type Initial Evaluation Visit Start Time 13:45 Visit Stop Time 14:20 Total Visit Minutes 35 Visit Number 1 Number of CHARGING OPERATOR Visits 0 Evaluation Information Evaluation Date 04/26/20 PT-OP-B Current Condition Start: 04/26/20 14:22 Freq: Status: Active Protocol: Document 04/26/20 13:45 DCW (Rec: 04/26/20 14:57 [facility] [id number]) Current Condition History of Current Condition Onset Date June, Current Complaints Shoulder pain, stiffness, loss of functional mobility History of Current Condition Pt is a 64 year old male with a 10 month history of right shoulder pain and stiffness. Pt reports he was working with Physical Therapy at a different clinic for shoulder tendonitis, and must have overdone something at one point, and started experiencing increased shoulder pain. Pt reports that in August of 2019, he had a Cortisone injection by his PCP , which helped a little bit for a very short time. Pt was then scheduled to be seen by Dr Singh, however this visit was unfortunately canceled due to Covid-19 shut-down. Pt was finally able to see Dr Singh in December, where he got a Prednisone pack, which helped a lot. Additionally, at this time, pt also underwent an MRI, which showed a partial- thickness tear of the supraspinatus tendon, among other findings. Five weeks ago , pt had a follow-up, and received a second Cortisone injection, which helped a lot more than the first. Pt notes that his shoulder is about 80% now than what it had been, admits that it used to feel miserable. Pt notes continued pain trying to lift his arm, but I don't do that much. Pain is still affecting his sleep, however less now than it had been previously. Pt notes that he struggles to don/doff his shirts due to pain and immobility in his shoulder. Prior Treatments and Tests Right shoulder MRI: IMPRESSION : 1. Small focal high-grade bursal surface partial- thickness tear of the posterior distal supraspinatus tendon with corresponding tendinopathy. 2. Moderate infraspinatus tendinopathy without significant bearing. 3. Severe degenerative changes of the acromioclavicular joint may be resulting in subacromial impingement and clinical correlation is recommended. 4. Fluid within the subacromial subdeltoid bursa is likely reactive to the partial-thickness supraspinatus tendon tear. Please correlate clinically to exclude bursitis. 5. Edema about the inferior glenohumeral ligament is suspicious for a ligamentous sprain, but may be seen in the setting of adhesive capsulitis. 6. Degenerative changes of the labrum without a displaced tear evident. 7. Mild tendinopathy involving intra-articular portion of the biceps tendon. 8. Possible bone contusion of the greater tuberosity of the humeral head. No fractures. Per: Vicente Baumann M.D. on Treatment Goals Patient/Caregiver Goals I want my shoulder to get back to the way it was. PT-OP-C Subjective Start: 04/26/20 14:22 Freq: Status: Active Protocol: Document 04/26/20 13:45 DCW (Rec: 04/26/20 14:57 DCW [id number]) OP-PT Subjective Patient Comments Patient Comments I still have a pretty consistent ache in my shoulder , which makes it rough to sleep, plus I can't sleep on my side, which is my preferred position. Patient Reported Progress Improving Patient Questionnaires Quick Dash- Upper Extremity Quick Dash UE Score 18.18% Quick Dash UE Impairment 1 to 19% Impaired (Score 1-19) OP-PT Pain Assessment Pain Assessment Grid Paper Pain Assessment Grid Completed Yes Location Right Shoulder Intensity 2 Scale Used Numeric (0 - 10) Description Aching,Chronic Frequency Constant PT-OP-E Functional Tests Start: 04/26/20 14:22 Freq: Status: Active Protocol: Document 04/26/20 13:45 DCW (Rec: 04/26/20 14:57 DCW [id number]) Functional Tests Apley's Scratch Test Action 1- Left Posterior opposite shoulder Action 1- Right Anterior opposite shoulder Action 2- Left T1 Action 2- Right Right parietal bone Action 3- Left T8 Action 3- Right S1 PT-OP-F Manual Assessment Start: 04/26/20 14:22 Freq: Status: Active Protocol: Document 04/26/20 13:45 DCW (Rec: 04/26/20 14:57 DCW [id number]) Manual Assessments Joint Mobility Assessment Joint Mobility Assessment Stiffness throughout upper ROM with PROM PT-OP-K Range of Motion Start: 04/26/20 14:22 Freq: Status: Active Protocol: Document 04/26/20 13:45 DCW (Rec: 04/26/20 14:57 DCW [id number]) Shoulder Goniometric Range of Motion Shoulder Right Passive Testing Position Sitting Flexion 117 Abduction 90 External Rotation at 0 degrees Abduction 42 Right Active Testing Position Sitting Flexion 105 Extension 28 Abduction 86 External Rotation at 0 degrees Abduction 35 Internal Rotation Behind Back (text) S1 Left Shoulder ROM WFL Yes Shoulder ROM Limitations Shoulder ROM Limitations Soft Tissue Tightness,Muscle Weakness,Muscle Tone,Pain PT-OP-L Special Tests Start: 04/26/20 14:22 Freq: Status: Active Protocol: Document 04/26/20 13:45 DCW (Rec: 04/26/20 14:57 DCW [id number]) Special Tests Shoulder Special Tests Painful Arc Test Results Positive R Passive ER Rotator Cuff Test Results Positive R Lift-Off Rotator Cuff Test Results Positive R Alvarenga Mayank Impingement Test Results Positive R Belly Press Test Results Negative AC Joint Compression Test Results Negative PT-OP-M Strength Start: 04/26/20 14:22 Freq: Status: Active Protocol: Document 04/26/20 13:45 DCW (Rec: 04/26/20 14:57 DCW [id number]) Shoulder Strength Shoulder Manual Muscle Testing Right Flexion 2+ Poor+ Abduction (C5) 2+ Poor+ External Rotation 3 Fair PT-OP-Q Treatments Start: 04/26/20 14:22 Freq: Status: Active Protocol: Document 04/26/20 13:45 DCW (Rec: 04/26/20 14:57 DCW [id number]) Therapeutic Exercises Sitting Exercises 2 Sitting Exercise Name GH Pulleys - Flexion Side bilateral 1 Sitting Exercise Name Table stretch - flexion and abduction Side right Comments HEP Standing Exercises 1 Standing Exercise Name IR towel stretch Comments Stopped secondary to pain PT-OP-T Assessment and Plan Start: 04/26/20 14:22 Freq: Status: Active Protocol: Document 04/26/20 13:45 DCW (Rec: 04/26/20 14:57 DCW [id number]) Physical Therapy Assessment Rehab Potential Rehabilitation Potential Good Evaluation Complexity Number of Personal Factors/Comorbidities 1-2 Number of Body Systems Impaired 1-2 Clinical Presentation at Evaluation Stable Impairments Impairments Functional Activities, Functional Mobility,Pain,ROM, Soft Tissue Mobility,Strength, Tone Goals Three Impairment Pt experiences sleep disturbances due to shoulder pain Senior Care Goal (LTG) Pt to report 4 nights of sleep undisturbed by shoulder pain over the course of a one week period. LTG Duration 06/26/20 Two Impairment Pt struggles to don/doff shirt due to pain National Sales Representative Goal (LTG) Pt to improve pain-free ROM of R shoulder to 120? both flexion and abduction in order to improve functional mobility to don/doff shirt. LTG Duration 06/26/20 One Impairment Pt does not have an appropriate home exercise program Short Term Goal (STG) Pt to be independent and compliant with an appropriate HEP STG Duration 05/26/20 Assessment Summary Assessment Pt presents with signs and symptoms consistent with his referring diagnosis of partial -thickness tear of the posterior distal supraspinatus , as well as other degenerative changes present in the right shoulder, per MRI . Pt currently limited with functional mobility, ROM, and strength. Pt should benefit from skilled therapy focusing on improving passive and active ROM, shoulder strength, activity tolerance, and decreasing pain. Physical Therapy Plan Frequency and Duration Frequency of Treatment 2x/Week Duration of Treatment 2 months Plan of Care Start Date 04/26/20 Plan of Care End Date 06/26/20 Therapeutic Interventions Therapeutic Interventions Home Exercise Program,Joint Mobilizations,Manual Therapy, Patient/Caregiver Education, Self-Care/Home Management,Soft Tissue Mobilization, Therapeutic Activities, Therapeutic Exercises Next Visit Focus/Plan Next Note Type Treatment Note Next Visit Plan P/AROM exercises, strengthening
--- NOTE | 2020-04-26 14:57 | PT.OPPOC ---
Physical, Occupational & Speech Therapy At [facility] Current Diagnoses Pain in right shoulder (04/26/20) Stiffness of right shoulder, not elsewhere classified (04/26/20) Adhesive capsulitis of right shoulder (04/26/20) Other shoulder lesions, right shoulder (04/26/20) Visit Care Team Role Provider Type Luis Acevedo PA-C Primary Care Provider Non-Staff Specialty: Family Practice Address: [address] [place] [address], [address], [place], [address] Email: Family Provider Specialty: Address: Phone: Fax: Email: Valente Singh DO Attending Provider Non-Staff Referring Provider Specialty: Orthopedics Address: [address] [place] [address], [id number] Email: Plan Of Care PT-OP-T Assessment and Plan Start: 04/26/20 14:22 Freq: Status: Active Protocol: Document 04/26/20 13:45 DCW (Rec: 04/26/20 14:57 DCW [id number]) Physical Therapy Assessment Rehab Potential Rehabilitation Potential Good Evaluation Complexity Number of Personal Factors/Comorbidities 1-2 Number of Body Systems Impaired 1-2 Clinical Presentation at Evaluation Stable Impairments Impairments Functional Activities, Functional Mobility,Pain,ROM, Soft Tissue Mobility,Strength, Tone Goals Three Impairment Pt experiences sleep disturbances due to shoulder pain Book Salesman Goal (LTG) Pt to report 4 nights of sleep undisturbed by shoulder pain over the course of a one week period. LTG Duration 06/26/20 Two Impairment Pt struggles to don/doff shirt due to pain Intermediate Goal (LTG) Pt to improve pain-free ROM of R shoulder to 120? both flexion and abduction in order to improve functional mobility to don/doff shirt. LTG Duration 06/26/20 One Impairment Pt does not have an appropriate home exercise program Short Term Goal (STG) Pt to be independent and compliant with an appropriate HEP STG Duration 05/26/20 Assessment Summary Assessment Pt presents with signs and symptoms consistent with his referring diagnosis of partial -thickness tear of the posterior distal supraspinatus , as well as other degenerative changes present in the right shoulder, per MRI . Pt currently limited with functional mobility, ROM, and strength. Pt should benefit from skilled therapy focusing on improving passive and active ROM, shoulder strength, activity tolerance, and decreasing pain. Physical Therapy Plan Frequency and Duration Frequency of Treatment 2x/Week Duration of Treatment 2 months Plan of Care Start Date 04/26/20 Plan of Care End Date 06/26/20 Therapeutic Interventions Therapeutic Interventions Home Exercise Program,Joint Mobilizations,Manual Therapy, Patient/Caregiver Education, Self-Care/Home Management,Soft Tissue Mobilization, Therapeutic Activities, Therapeutic Exercises Next Visit Focus/Plan Next Note Type Treatment Note Next Visit Plan P/AROM exercises, strengthening Plan of Care Dates Plan of Care Start Date 04/26/20 Plan of Care End Date 06/26/20 Electronically Signed by: Irving Iglesias, PT 04/26/20 6227 Please Sign and Return: I have reviewed this Plan of Care and certify that the skilled therapy services above are required to meet the patient?s needs. Physician Signature Date Printed Name and Credentials Clinical Instructor Signature Printed Name and Credentials
--- NOTE | 2020-05-01 12:46 | PT.OTN ---
Current Diagnoses Pain in right shoulder (05/01/20) Stiffness of right shoulder, not elsewhere classified (05/01/20) Adhesive capsulitis of right shoulder (05/01/20) Other shoulder lesions, right shoulder (05/01/20) Physical Therapy Treatment Note PT-OP-A Visit Information Start: 04/26/20 14:22 Freq: Status: Active Protocol: Document 05/01/20 12:03 DCW (Rec: 05/01/20 12:46 DCW [id number]) Out-Patient Physical Therapy Visit Information Visit Information Visit Type Treatment Note Visit Start Time 12:03 Visit Stop Time 12:45 Total Visit Minutes 42 Visit Number 2 Number of ENVIRONMENTAL SERVICES MANAGER Visits 0 Evaluation Information Evaluation Date 04/26/20 PT-OP-B Current Condition Start: 04/26/20 14:22 Freq: Status: Active Protocol: Document 04/26/20 13:45 DCW (Rec: 04/26/20 14:57 DCW [id number]) Current Condition History of Current Condition Onset Date June, Current Complaints Shoulder pain, stiffness, loss of functional mobility History of Current Condition Pt is a 64 year old male with a 10 month history of right shoulder pain and stiffness. Pt reports he was working with Physical Therapy at a different clinic for shoulder tendonitis, and must have overdone something at one point, and started experiencing increased shoulder pain. Pt reports that in August of 2019, he had a Cortisone injection by his PCP , which helped a little bit for a very short time. Pt was then scheduled to be seen by Dr Singh, however this visit was unfortunately canceled due to Covid-19 shut-down. Pt was finally able to see Dr Singh in December, where he got a Prednisone pack, which helped a lot. Additionally, at this time, pt also underwent an MRI, which showed a partial- thickness tear of the supraspinatus tendon, among other findings. Five weeks ago , pt had a follow-up, and received a second Cortisone injection, which helped a lot more than the first. Pt notes that his shoulder is about 80% now than what it had been, admits that it used to feel miserable. Pt notes continued pain trying to lift his arm, but I don't do that much. Pain is still affecting his sleep, however less now than it had been previously. Pt notes that he struggles to don/doff his shirts due to pain and immobility in his shoulder. Prior Treatments and Tests Right shoulder MRI: IMPRESSION : 1. Small focal high-grade bursal surface partial- thickness tear of the posterior distal supraspinatus tendon with corresponding tendinopathy. 2. Moderate infraspinatus tendinopathy without significant bearing. 3. Severe degenerative changes of the acromioclavicular joint may be resulting in subacromial impingement and clinical correlation is recommended. 4. Fluid within the subacromial subdeltoid bursa is likely reactive to the partial-thickness supraspinatus tendon tear. Please correlate clinically to exclude bursitis. 5. Edema about the inferior glenohumeral ligament is suspicious for a ligamentous sprain, but may be seen in the setting of adhesive capsulitis. 6. Degenerative changes of the labrum without a displaced tear evident. 7. Mild tendinopathy involving intra-articular portion of the biceps tendon. 8. Possible bone contusion of the greater tuberosity of the humeral head. No fractures. Per: Vicente Baumann M.D. on Treatment Goals Patient/Caregiver Goals I want my shoulder to get back to the way it was. PT-OP-C Subjective Start: 04/26/20 14:22 Freq: Status: Active Protocol: Document 05/01/20 12:03 DCW (Rec: 05/01/20 12:46 DCW [id number]) OP-PT Subjective Patient Comments Patient Comments I spent a lot of yesterday working outside, so I'm pretty sore today, but it's mainly my back, not my shoulder. PT-OP-E Functional Tests Start: 04/26/20 14:22 Freq: Status: Active Protocol: Document 04/26/20 13:45 DCW (Rec: 04/26/20 14:57 DCW [id number]) Functional Tests Apley's Scratch Test Action 1- Left Posterior opposite shoulder Action 1- Right Anterior opposite shoulder Action 2- Left T1 Action 2- Right Right parietal bone Action 3- Left T8 Action 3- Right S1 PT-OP-F Manual Assessment Start: 04/26/20 14:22 Freq: Status: Active Protocol: Document 04/26/20 13:45 DCW (Rec: 04/26/20 14:57 DCW [id number]) Manual Assessments Joint Mobility Assessment Joint Mobility Assessment Stiffness throughout upper ROM with PROM PT-OP-K Range of Motion Start: 04/26/20 14:22 Freq: Status: Active Protocol: Document 04/26/20 13:45 DCW (Rec: 04/26/20 14:57 DCW [id number]) Shoulder Goniometric Range of Motion Shoulder Right Passive Testing Position Sitting Flexion 117 Abduction 90 External Rotation at 0 degrees Abduction 42 Right Active Testing Position Sitting Flexion 105 Extension 28 Abduction 86 External Rotation at 0 degrees Abduction 35 Internal Rotation Behind Back (text) S1 Left Shoulder ROM WFL Yes Shoulder ROM Limitations Shoulder ROM Limitations Soft Tissue Tightness,Muscle Weakness,Muscle Tone,Pain PT-OP-L Special Tests Start: 04/26/20 14:22 Freq: Status: Active Protocol: Document 04/26/20 13:45 DCW (Rec: 04/26/20 14:57 DCW [id number]) Special Tests Shoulder Special Tests Painful Arc Test Results Positive R Passive ER Rotator Cuff Test Results Positive R Lift-Off Rotator Cuff Test Results Positive R Alvarenga Mayank Impingement Test Results Positive R Belly Press Test Results Negative AC Joint Compression Test Results Negative PT-OP-M Strength Start: 04/26/20 14:22 Freq: Status: Active Protocol: Document 04/26/20 13:45 DCW (Rec: 04/26/20 14:57 DCW [id number]) Shoulder Strength Shoulder Manual Muscle Testing Right Flexion 2+ Poor+ Abduction (C5) 2+ Poor+ External Rotation 3 Fair PT-OP-Q Treatments Start: 04/26/20 14:22 Freq: Status: Active Protocol: Document 05/01/20 12:03 DCW (Rec: 05/01/20 12:46 DCW [id number]) Cardio Equipment Upper Body Ergometer (UBE) Duration (Minutes) 5 RPM 60 Seat Position 10 Height 4 Therapeutic Exercises Supine Exercises 3 Supine Exercise Name Horizontal Adduction Side bilateral 2 Supine Exercise Name Serratus punch Side bilateral 1 Supine Exercise Name Flexion /c PVC Side bilateral Sitting Exercises 2 Sitting Exercise Name GH Pulleys - Flexion Side bilateral Standing Exercises 6 Standing Exercise Name Extension /c PVC 5 Standing Exercise Name ER Resistance Lv 3 Equipment Used T-band 4 Standing Exercise Name IR Resistance Lv 3 Equipment Used T-band 3 Standing Exercise Name Rows Resistance Lv 3 Equipment Used T-band 2 Standing Exercise Name Shoulder Extension Resistance Lv 3 Equipment Used T-band Manual Therapy Treatment Soft Tissue Mobilization 1 Body Location Supraspinatus Mobilization Type Sustained Pressure Intensity/Depth Superficial Joint Mobilizations 1 Joint Scapulothoracic Direction Lateral Grade III PT-OP-T Assessment and Plan Start: 04/26/20 14:22 Freq: Status: Active Protocol: Document 05/01/20 12:03 DCW (Rec: 05/01/20 12:46 DCW [id number]) Physical Therapy Assessment Impairments Impairments Functional Activities, Functional Mobility,Pain,ROM, Soft Tissue Mobility,Strength, Tone Goals Three Impairment Pt experiences sleep disturbances due to shoulder pain Intermediate Goal (LTG) Pt to report 4 nights of sleep undisturbed by shoulder pain over the course of a one week period. LTG Duration 06/26/20 Two Impairment Pt struggles to don/doff shirt due to pain Intermediate Goal (LTG) Pt to improve pain-free ROM of R shoulder to 120? both flexion and abduction in order to improve functional mobility to don/doff shirt. LTG Duration 06/26/20 One Impairment Pt does not have an appropriate home exercise program Short Term Goal (STG) Pt to be independent and compliant with an appropriate HEP STG Duration 05/26/20 Assessment Summary Assessment Pt tolerated all activities today with minimal pain or discomfort in his shoulder, good at limiting himself to pain-free ROM. Physical Therapy Plan Frequency and Duration Frequency of Treatment 2x/Week Duration of Treatment 2 months Plan of Care Start Date 04/26/20 Plan of Care End Date 06/26/20 Therapeutic Interventions Therapeutic Interventions Home Exercise Program,Joint Mobilizations,Manual Therapy, Patient/Caregiver Education, Self-Care/Home Management,Soft Tissue Mobilization, Therapeutic Activities, Therapeutic Exercises Next Visit Focus/Plan Next Note Type Treatment Note Next Visit Plan P/AROM exercises, strengthening
--- NOTE | 2020-05-03 12:49 | PT.OTN ---
Current Diagnoses Pain in right shoulder (05/03/20) Stiffness of right shoulder, not elsewhere classified (05/03/20) Adhesive capsulitis of right shoulder (05/03/20) Other shoulder lesions, right shoulder (05/03/20) Physical Therapy Treatment Note PT-OP-A Visit Information Start: 04/26/20 14:22 Freq: Status: Active Protocol: Document 05/03/20 12:00 DCW (Rec: 05/03/20 12:49 DCW [id number]) Out-Patient Physical Therapy Visit Information Visit Information Visit Type Treatment Note Visit Start Time 12:00 Visit Stop Time 12:45 Total Visit Minutes 45 Visit Number 3 Number of PHOTO FINISHER Visits 0 Evaluation Information Evaluation Date 04/26/20 PT-OP-B Current Condition Start: 04/26/20 14:22 Freq: Status: Active Protocol: Document 04/26/20 13:45 DCW (Rec: 04/26/20 14:57 DCW [id number]) Current Condition History of Current Condition Onset Date June, Current Complaints Shoulder pain, stiffness, loss of functional mobility History of Current Condition Pt is a 64 year old male with a 10 month history of right shoulder pain and stiffness. Pt reports he was working with Physical Therapy at a different clinic for shoulder tendonitis, and must have overdone something at one point, and started experiencing increased shoulder pain. Pt reports that in August of 2019, he had a Cortisone injection by his PCP , which helped a little bit for a very short time. Pt was then scheduled to be seen by Dr Singh, however this visit was unfortunately canceled due to Covid-19 shut-down. Pt was finally able to see Dr Singh in December, where he got a Prednisone pack, which helped a lot. Additionally, at this time, pt also underwent an MRI, which showed a partial- thickness tear of the supraspinatus tendon, among other findings. Five weeks ago , pt had a follow-up, and received a second Cortisone injection, which helped a lot more than the first. Pt notes that his shoulder is about 80% now than what it had been, admits that it used to feel miserable. Pt notes continued pain trying to lift his arm, but I don't do that much. Pain is still affecting his sleep, however less now than it had been previously. Pt notes that he struggles to don/doff his shirts due to pain and immobility in his shoulder. Prior Treatments and Tests Right shoulder MRI: IMPRESSION : 1. Small focal high-grade bursal surface partial- thickness tear of the posterior distal supraspinatus tendon with corresponding tendinopathy. 2. Moderate infraspinatus tendinopathy without significant bearing. 3. Severe degenerative changes of the acromioclavicular joint may be resulting in subacromial impingement and clinical correlation is recommended. 4. Fluid within the subacromial subdeltoid bursa is likely reactive to the partial-thickness supraspinatus tendon tear. Please correlate clinically to exclude bursitis. 5. Edema about the inferior glenohumeral ligament is suspicious for a ligamentous sprain, but may be seen in the setting of adhesive capsulitis. 6. Degenerative changes of the labrum without a displaced tear evident. 7. Mild tendinopathy involving intra-articular portion of the biceps tendon. 8. Possible bone contusion of the greater tuberosity of the humeral head. No fractures. Per: Vicente Baumann M.D. on Treatment Goals Patient/Caregiver Goals I want my shoulder to get back to the way it was. PT-OP-C Subjective Start: 04/26/20 14:22 Freq: Status: Active Protocol: Document 05/03/20 12:00 DCW (Rec: 05/03/20 12:49 DCW [id number]) OP-PT Subjective Patient Comments Patient Comments Pt reports his shoulder is not too bad today. PT-OP-E Functional Tests Start: 04/26/20 14:22 Freq: Status: Active Protocol: Document 04/26/20 13:45 DCW (Rec: 04/26/20 14:57 DCW [id number]) Functional Tests Apley's Scratch Test Action 1- Left Posterior opposite shoulder Action 1- Right Anterior opposite shoulder Action 2- Left T1 Action 2- Right Right parietal bone Action 3- Left T8 Action 3- Right S1 PT-OP-F Manual Assessment Start: 04/26/20 14:22 Freq: Status: Active Protocol: Document 04/26/20 13:45 DCW (Rec: 04/26/20 14:57 DCW [id number]) Manual Assessments Joint Mobility Assessment Joint Mobility Assessment Stiffness throughout upper ROM with PROM PT-OP-K Range of Motion Start: 04/26/20 14:22 Freq: Status: Active Protocol: Document 04/26/20 13:45 DCW (Rec: 04/26/20 14:57 DCW [id number]) Shoulder Goniometric Range of Motion Shoulder Right Passive Testing Position Sitting Flexion 117 Abduction 90 External Rotation at 0 degrees Abduction 42 Right Active Testing Position Sitting Flexion 105 Extension 28 Abduction 86 External Rotation at 0 degrees Abduction 35 Internal Rotation Behind Back (text) S1 Left Shoulder ROM WFL Yes Shoulder ROM Limitations Shoulder ROM Limitations Soft Tissue Tightness,Muscle Weakness,Muscle Tone,Pain PT-OP-L Special Tests Start: 04/26/20 14:22 Freq: Status: Active Protocol: Document 04/26/20 13:45 DCW (Rec: 04/26/20 14:57 DCW [id number]) Special Tests Shoulder Special Tests Painful Arc Test Results Positive R Passive ER Rotator Cuff Test Results Positive R Lift-Off Rotator Cuff Test Results Positive R Alvarenga Mayank Impingement Test Results Positive R Belly Press Test Results Negative AC Joint Compression Test Results Negative PT-OP-M Strength Start: 04/26/20 14:22 Freq: Status: Active Protocol: Document 04/26/20 13:45 DCW (Rec: 04/26/20 14:57 DCW [id number]) Shoulder Strength Shoulder Manual Muscle Testing Right Flexion 2+ Poor+ Abduction (C5) 2+ Poor+ External Rotation 3 Fair PT-OP-Q Treatments Start: 04/26/20 14:22 Freq: Status: Active Protocol: Document 05/03/20 12:00 DCW (Rec: 05/03/20 12:49 DCW [id number]) Cardio Equipment Upper Body Ergometer (UBE) Duration (Minutes) 5 RPM 60 Seat Position 10 Height 4 Therapeutic Exercises Supine Exercises 2 Supine Exercise Name Serratus punch Side bilateral 1 Supine Exercise Name Flexion /c PVC Side bilateral Prone Exercises 2 Prone Exercise Name Prone Extension Comments stopped d/t pain 1 Prone Exercise Name Prone Horisontal Abduction Comments stopped d/t pain Sitting Exercises 2 Sitting Exercise Name GH Pulleys - Flexion, Abduction Side bilateral Standing Exercises 6 Standing Exercise Name Extension /c PVC 5 Standing Exercise Name ER Resistance Lv 3 Equipment Used T-band 4 Standing Exercise Name IR Resistance Lv 3 Equipment Used T-band 3 Standing Exercise Name Rows Resistance Lv 3 Equipment Used T-band 2 Standing Exercise Name Shoulder Extension Resistance Lv 3 Equipment Used T-band Manual Therapy Treatment Soft Tissue Mobilization 1 Body Location Supraspinatus Mobilization Type Sustained Pressure Intensity/Depth Superficial Joint Mobilizations 1 Joint Scapulothoracic Direction Lateral Grade III PT-OP-T Assessment and Plan Start: 04/26/20 14:22 Freq: Status: Active Protocol: Document 05/03/20 12:00 DCW (Rec: 05/03/20 12:49 DCW [id number]) Physical Therapy Assessment Impairments Impairments Functional Activities, Functional Mobility,Pain,ROM, Soft Tissue Mobility,Strength, Tone Goals Three Impairment Pt experiences sleep disturbances due to shoulder pain Meteorology Professor Goal (LTG) Pt to report 4 nights of sleep undisturbed by shoulder pain over the course of a one week period. LTG Duration 06/26/20 Two Impairment Pt struggles to don/doff shirt due to pain Meteorology Professor Goal (LTG) Pt to improve pain-free ROM of R shoulder to 120? both flexion and abduction in order to improve functional mobility to don/doff shirt. LTG Duration 06/26/20 One Impairment Pt does not have an appropriate home exercise program Short Term Goal (STG) Pt to be independent and compliant with an appropriate HEP STG Duration 05/26/20 Assessment Summary Assessment Pt showing improvement with mobility and pain control, able to tolerate most activities today without pain, however prone exercises did need to be stopped due to pain and soreness. Physical Therapy Plan Frequency and Duration Frequency of Treatment 2x/Week Duration of Treatment 2 months Plan of Care Start Date 04/26/20 Plan of Care End Date 06/26/20 Therapeutic Interventions Therapeutic Interventions Home Exercise Program,Joint Mobilizations,Manual Therapy, Patient/Caregiver Education, Self-Care/Home Management,Soft Tissue Mobilization, Therapeutic Activities, Therapeutic Exercises Next Visit Focus/Plan Next Note Type Treatment Note Next Visit Plan P/AROM exercises, strengthening
--- NOTE | 2020-05-08 12:50 | PT.OTN ---
Current Diagnoses Pain in right shoulder (05/08/20) Stiffness of right shoulder, not elsewhere classified (05/08/20) Adhesive capsulitis of right shoulder (05/08/20) Other shoulder lesions, right shoulder (05/08/20) Physical Therapy Treatment Note PT-OP-A Visit Information Start: 04/26/20 14:22 Freq: Status: Active Protocol: Document 05/08/20 12:00 DCW (Rec: 05/08/20 12:50 DCW [id number]) Out-Patient Physical Therapy Visit Information Visit Information Visit Type Treatment Note Visit Start Time 12:00 Visit Stop Time 12:45 Total Visit Minutes 45 Visit Number 3 Number of AUXILIARY EQUIPMENT OPERATOR Visits 0 Evaluation Information Evaluation Date 04/26/20 PT-OP-B Current Condition Start: 04/26/20 14:22 Freq: Status: Active Protocol: Document 04/26/20 13:45 DCW (Rec: 04/26/20 14:57 DCW [id number]) Current Condition History of Current Condition Onset Date June, Current Complaints Shoulder pain, stiffness, loss of functional mobility History of Current Condition Pt is a 64 year old male with a 10 month history of right shoulder pain and stiffness. Pt reports he was working with Physical Therapy at a different clinic for shoulder tendonitis, and must have overdone something at one point, and started experiencing increased shoulder pain. Pt reports that in August of 2019, he had a Cortisone injection by his PCP , which helped a little bit for a very short time. Pt was then scheduled to be seen by Dr Singh, however this visit was unfortunately canceled due to Covid-19 shut-down. Pt was finally able to see Dr Singh in December, where he got a Prednisone pack, which helped a lot. Additionally, at this time, pt also underwent an MRI, which showed a partial- thickness tear of the supraspinatus tendon, among other findings. Five weeks ago , pt had a follow-up, and received a second Cortisone injection, which helped a lot more than the first. Pt notes that his shoulder is about 80% now than what it had been, admits that it used to feel miserable. Pt notes continued pain trying to lift his arm, but I don't do that much. Pain is still affecting his sleep, however less now than it had been previously. Pt notes that he struggles to don/doff his shirts due to pain and immobility in his shoulder. Prior Treatments and Tests Right shoulder MRI: IMPRESSION : 1. Small focal high-grade bursal surface partial- thickness tear of the posterior distal supraspinatus tendon with corresponding tendinopathy. 2. Moderate infraspinatus tendinopathy without significant bearing. 3. Severe degenerative changes of the acromioclavicular joint may be resulting in subacromial impingement and clinical correlation is recommended. 4. Fluid within the subacromial subdeltoid bursa is likely reactive to the partial-thickness supraspinatus tendon tear. Please correlate clinically to exclude bursitis. 5. Edema about the inferior glenohumeral ligament is suspicious for a ligamentous sprain, but may be seen in the setting of adhesive capsulitis. 6. Degenerative changes of the labrum without a displaced tear evident. 7. Mild tendinopathy involving intra-articular portion of the biceps tendon. 8. Possible bone contusion of the greater tuberosity of the humeral head. No fractures. Per: Vicente Baumann M.D. on Treatment Goals Patient/Caregiver Goals I want my shoulder to get back to the way it was. PT-OP-C Subjective Start: 04/26/20 14:22 Freq: Status: Active Protocol: Document 05/08/20 12:00 DCW (Rec: 05/08/20 12:50 DCW [id number]) OP-PT Subjective Patient Comments Patient Comments Not bad. Pt reports he has been doing his exercises and stretching at home, everything seems to be going well. It still hurts, but I work through it. PT-OP-E Functional Tests Start: 04/26/20 14:22 Freq: Status: Active Protocol: Document 04/26/20 13:45 DCW (Rec: 04/26/20 14:57 DCW [id number]) Functional Tests Apley's Scratch Test Action 1- Left Posterior opposite shoulder Action 1- Right Anterior opposite shoulder Action 2- Left T1 Action 2- Right Right parietal bone Action 3- Left T8 Action 3- Right S1 PT-OP-F Manual Assessment Start: 04/26/20 14:22 Freq: Status: Active Protocol: Document 04/26/20 13:45 DCW (Rec: 04/26/20 14:57 DCW [id number]) Manual Assessments Joint Mobility Assessment Joint Mobility Assessment Stiffness throughout upper ROM with PROM PT-OP-K Range of Motion Start: 04/26/20 14:22 Freq: Status: Active Protocol: Document 04/26/20 13:45 DCW (Rec: 04/26/20 14:57 DCW [id number]) Shoulder Goniometric Range of Motion Shoulder Right Passive Testing Position Sitting Flexion 117 Abduction 90 External Rotation at 0 degrees Abduction 42 Right Active Testing Position Sitting Flexion 105 Extension 28 Abduction 86 External Rotation at 0 degrees Abduction 35 Internal Rotation Behind Back (text) S1 Left Shoulder ROM WFL Yes Shoulder ROM Limitations Shoulder ROM Limitations Soft Tissue Tightness,Muscle Weakness,Muscle Tone,Pain PT-OP-L Special Tests Start: 04/26/20 14:22 Freq: Status: Active Protocol: Document 04/26/20 13:45 DCW (Rec: 04/26/20 14:57 DCW [id number]) Special Tests Shoulder Special Tests Painful Arc Test Results Positive R Passive ER Rotator Cuff Test Results Positive R Lift-Off Rotator Cuff Test Results Positive R Alvarenga Mayank Impingement Test Results Positive R Belly Press Test Results Negative AC Joint Compression Test Results Negative PT-OP-M Strength Start: 04/26/20 14:22 Freq: Status: Active Protocol: Document 04/26/20 13:45 DCW (Rec: 04/26/20 14:57 DCW [id number]) Shoulder Strength Shoulder Manual Muscle Testing Right Flexion 2+ Poor+ Abduction (C5) 2+ Poor+ External Rotation 3 Fair PT-OP-Q Treatments Start: 04/26/20 14:22 Freq: Status: Active Protocol: Document 05/08/20 12:00 DCW (Rec: 05/08/20 12:50 DCW [id number]) Cardio Equipment Upper Body Ergometer (UBE) Duration (Minutes) 5 RPM 60 Seat Position 10 Height 4 Therapeutic Exercises Supine Exercises 2 Supine Exercise Name Serratus punch Side bilateral 1 Supine Exercise Name Flexion /c PVC Side bilateral Sitting Exercises 2 Sitting Exercise Name GH Pulleys - Flexion, Abduction Side bilateral Standing Exercises 6 Standing Exercise Name Extension /c PVC Other Exercises 2 Other Exercise Name Wall clocks Side bilateral Resistance Yellow Equipment Used T-band 1 Other Exercise Name UE resisted side-stepping Side bilateral Resistance Yellow Equipment Used T-band Manual Therapy Treatment Soft Tissue Mobilization 1 Body Location Supraspinatus Mobilization Type Sustained Pressure Intensity/Depth Superficial Joint Mobilizations 1 Joint Scapulothoracic Direction Lateral Grade III PT-OP-T Assessment and Plan Start: 04/26/20 14:22 Freq: Status: Active Protocol: Document 05/08/20 12:00 DCW (Rec: 05/08/20 12:50 DCW [id number]) Physical Therapy Assessment Impairments Impairments Functional Activities, Functional Mobility,Pain,ROM, Soft Tissue Mobility,Strength, Tone Goals Three Impairment Pt experiences sleep disturbances due to shoulder pain Fpc Goal (LTG) Pt to report 4 nights of sleep undisturbed by shoulder pain over the course of a one week period. LTG Duration 06/26/20 Two Impairment Pt struggles to don/doff shirt due to pain Fabric Worker Fitter Goal (LTG) Pt to improve pain-free ROM of R shoulder to 120? both flexion and abduction in order to improve functional mobility to don/doff shirt. LTG Duration 06/26/20 One Impairment Pt does not have an appropriate home exercise program Short Term Goal (STG) Pt to be independent and compliant with an appropriate HEP STG Duration 05/26/20 Assessment Summary Assessment Pt continuing to improve with ROM and stability of his shoulder, has been compliant with current HEP. Physical Therapy Plan Frequency and Duration Frequency of Treatment 2x/Week Duration of Treatment 2 months Plan of Care Start Date 04/26/20 Plan of Care End Date 06/26/20 Therapeutic Interventions Therapeutic Interventions Home Exercise Program,Joint Mobilizations,Manual Therapy, Patient/Caregiver Education, Self-Care/Home Management,Soft Tissue Mobilization, Therapeutic Activities, Therapeutic Exercises Next Visit Focus/Plan Next Note Type Treatment Note Next Visit Plan P/AROM exercises, strengthening
--- NOTE | 2020-05-10 12:46 | PT.OIE ---
Current Diagnoses Pain in right shoulder (05/10/20) Stiffness of right shoulder, not elsewhere classified (05/10/20) Adhesive capsulitis of right shoulder (05/10/20) Other shoulder lesions, right shoulder (05/10/20) Past Medical History (Last Reviewed 08/28/19 @ 13:25 by Denzel Campa MD) Diabetes (Acute) Skin cancer (Acute) Visit Care Team Role Provider Type Luis Acevedo PA-C Primary Care Provider Non-Staff Specialty: Family Practice Address: [address] [place] [address], [address], [place], [address] Email: Family Provider Specialty: Address: Phone: Fax: Email: Valente Singh DO Attending Provider Non-Staff Referring Provider Specialty: Orthopedics Address: [address] [place], [address] Email: Physical Therapy Initial Evaluation PT-OP-A Visit Information Start: 04/26/20 14:22 Freq: Status: Active Protocol: Document 05/10/20 12:00 DCW (Rec: 05/10/20 12:46 DCW [id number]) Out-Patient Physical Therapy Visit Information Visit Information Visit Type Treatment Note Visit Start Time 12:00 Visit Stop Time 12:45 Total Visit Minutes 45 Visit Number 4 Number of BUMPER OPERATOR Visits 0 Evaluation Information Evaluation Date 04/26/20 PT-OP-B Current Condition Start: 04/26/20 14:22 Freq: Status: Active Protocol: Document 04/26/20 13:45 DCW (Rec: 04/26/20 14:57 DCW [id number]) Current Condition History of Current Condition Onset Date June, Current Complaints Shoulder pain, stiffness, loss of functional mobility History of Current Condition Pt is a 64 year old male with a 10 month history of right shoulder pain and stiffness. Pt reports he was working with Physical Therapy at a different clinic for shoulder tendonitis, and must have overdone something at one point, and started experiencing increased shoulder pain. Pt reports that in August of 2019, he had a Cortisone injection by his PCP , which helped a little bit for a very short time. Pt was then scheduled to be seen by Dr Singh, however this visit was unfortunately canceled due to Covid-19 shut-down. Pt was finally able to see Dr Singh in December, where he got a Prednisone pack, which helped a lot. Additionally, at this time, pt also underwent an MRI, which showed a partial- thickness tear of the supraspinatus tendon, among other findings. Five weeks ago , pt had a follow-up, and received a second Cortisone injection, which helped a lot more than the first. Pt notes that his shoulder is about 80% now than what it had been, admits that it used to feel miserable. Pt notes continued pain trying to lift his arm, but I don't do that much. Pain is still affecting his sleep, however less now than it had been previously. Pt notes that he struggles to don/doff his shirts due to pain and immobility in his shoulder. Prior Treatments and Tests Right shoulder MRI: IMPRESSION : 1. Small focal high-grade bursal surface partial- thickness tear of the posterior distal supraspinatus tendon with corresponding tendinopathy. 2. Moderate infraspinatus tendinopathy without significant bearing. 3. Severe degenerative changes of the acromioclavicular joint may be resulting in subacromial impingement and clinical correlation is recommended. 4. Fluid within the subacromial subdeltoid bursa is likely reactive to the partial-thickness supraspinatus tendon tear. Please correlate clinically to exclude bursitis. 5. Edema about the inferior glenohumeral ligament is suspicious for a ligamentous sprain, but may be seen in the setting of adhesive capsulitis. 6. Degenerative changes of the labrum without a displaced tear evident. 7. Mild tendinopathy involving intra-articular portion of the biceps tendon. 8. Possible bone contusion of the greater tuberosity of the humeral head. No fractures. Per: Vicente Baumann M.D. on Treatment Goals Patient/Caregiver Goals I want my shoulder to get back to the way it was. PT-OP-C Subjective Start: 04/26/20 14:22 Freq: Status: Active Protocol: Document 05/10/20 12:00 DCW (Rec: 05/10/20 12:46 DCW [id number]) OP-PT Subjective Patient Comments Patient Comments I've been getting work done in the yard. No increase in shoulder pain, just a lot of sweat. PT-OP-E Functional Tests Start: 04/26/20 14:22 Freq: Status: Active Protocol: Document 04/26/20 13:45 DCW (Rec: 04/26/20 14:57 DCW [id number]) Functional Tests Apley's Scratch Test Action 1- Left Posterior opposite shoulder Action 1- Right Anterior opposite shoulder Action 2- Left T1 Action 2- Right Right parietal bone Action 3- Left T8 Action 3- Right S1 PT-OP-F Manual Assessment Start: 04/26/20 14:22 Freq: Status: Active Protocol: Document 04/26/20 13:45 DCW (Rec: 04/26/20 14:57 DCW [id number]) Manual Assessments Joint Mobility Assessment Joint Mobility Assessment Stiffness throughout upper ROM with PROM PT-OP-K Range of Motion Start: 04/26/20 14:22 Freq: Status: Active Protocol: Document 04/26/20 13:45 DCW (Rec: 04/26/20 14:57 DCW [id number]) Shoulder Goniometric Range of Motion Shoulder Right Passive Testing Position Sitting Flexion 117 Abduction 90 External Rotation at 0 degrees Abduction 42 Right Active Testing Position Sitting Flexion 105 Extension 28 Abduction 86 External Rotation at 0 degrees Abduction 35 Internal Rotation Behind Back (text) S1 Left Shoulder ROM WFL Yes Shoulder ROM Limitations Shoulder ROM Limitations Soft Tissue Tightness,Muscle Weakness,Muscle Tone,Pain PT-OP-L Special Tests Start: 04/26/20 14:22 Freq: Status: Active Protocol: Document 04/26/20 13:45 DCW (Rec: 04/26/20 14:57 DCW [id number]) Special Tests Shoulder Special Tests Painful Arc Test Results Positive R Passive ER Rotator Cuff Test Results Positive R Lift-Off Rotator Cuff Test Results Positive R Alvarenga Mayank Impingement Test Results Positive R Belly Press Test Results Negative AC Joint Compression Test Results Negative PT-OP-M Strength Start: 04/26/20 14:22 Freq: Status: Active Protocol: Document 04/26/20 13:45 DCW (Rec: 04/26/20 14:57 DCW [id number]) Shoulder Strength Shoulder Manual Muscle Testing Right Flexion 2+ Poor+ Abduction (C5) 2+ Poor+ External Rotation 3 Fair PT-OP-Q Treatments Start: 04/26/20 14:22 Freq: Status: Active Protocol: Document 05/10/20 12:00 DCW (Rec: 05/10/20 12:46 DCW [id number]) Cardio Equipment Upper Body Ergometer (UBE) Duration (Minutes) 5 RPM 60 Seat Position 10 Height 4 Therapeutic Exercises Supine Exercises 1 Supine Exercise Name Flexion /c PVC Side bilateral Standing Exercises 8 Standing Exercise Name Shoulder Abduction Resistance 2# 7 Standing Exercise Name Shoulder Flexion Resistance 2# 3 Standing Exercise Name Rows Resistance Lv 3 Equipment Used T-band 2 Standing Exercise Name Shoulder Extension Resistance Lv 3 Equipment Used T-band Other Exercises 2 Other Exercise Name Wall clocks Side bilateral Resistance Yellow Equipment Used T-band 1 Other Exercise Name UE resisted side-stepping Side bilateral Resistance Yellow Equipment Used T-band Manual Therapy Treatment Soft Tissue Mobilization 1 Body Location Supraspinatus Mobilization Type Sustained Pressure Intensity/Depth Superficial Joint Mobilizations 1 Joint Scapulothoracic Direction Lateral Grade III PT-OP-T Assessment and Plan Start: 04/26/20 14:22 Freq: Status: Active Protocol: Document 05/10/20 12:00 DCW (Rec: 05/10/20 12:46 CTW [id number]) Physical Therapy Assessment Impairments Impairments Functional Activities, Functional Mobility,Pain,ROM, Soft Tissue Mobility,Strength, Tone Goals Three Impairment Pt experiences sleep disturbances due to shoulder pain Mcfp Goal (LTG) Pt to report 4 nights of sleep undisturbed by shoulder pain over the course of a one week period. LTG Duration 06/26/20 Two Impairment Pt struggles to don/doff shirt due to pain Mcfp Goal (LTG) Pt to improve pain-free ROM of R shoulder to 120? both flexion and abduction in order to improve functional mobility to don/doff shirt. LTG Duration 06/26/20 One Impairment Pt does not have an appropriate home exercise program Short Term Goal (STG) Pt to be independent and compliant with an appropriate HEP STG Duration 05/26/20 Assessment Summary Assessment Pt doing well, progress with ROM and mobility of shoulder. Pt still experiencing pain while lowering arm. Physical Therapy Plan Frequency and Duration Frequency of Treatment 2x/Week Duration of Treatment 2 months Plan of Care Start Date 04/26/20 Plan of Care End Date 06/26/20 Therapeutic Interventions Therapeutic Interventions Home Exercise Program,Joint Mobilizations,Manual Therapy, Patient/Caregiver Education, Self-Care/Home Management,Soft Tissue Mobilization, Therapeutic Activities, Therapeutic Exercises Next Visit Focus/Plan Next Note Type Treatment Note Next Visit Plan P/AROM exercises, strengthening
--- NOTE | 2020-05-13 12:46 | PT.OTN ---
Current Diagnoses Pain in right shoulder (05/13/20) Stiffness of right shoulder, not elsewhere classified (05/13/20) Adhesive capsulitis of right shoulder (05/13/20) Other shoulder lesions, right shoulder (05/13/20) Physical Therapy Treatment Note PT-OP-A Visit Information Start: 04/26/20 14:22 Freq: Status: Active Protocol: Document 05/13/20 12:00 DCW (Rec: 05/13/20 12:46 DCW [id number]) Out-Patient Physical Therapy Visit Information Visit Information Visit Type Treatment Note Visit Start Time 12:00 Visit Stop Time 12:45 Total Visit Minutes 45 Visit Number 5 Number of JIGGER ARTISAN Visits 0 Evaluation Information Evaluation Date 04/26/20 PT-OP-B Current Condition Start: 04/26/20 14:22 Freq: Status: Active Protocol: Document 04/26/20 13:45 DCW (Rec: 04/26/20 14:57 DCW [id number]) Current Condition History of Current Condition Onset Date June, Current Complaints Shoulder pain, stiffness, loss of functional mobility History of Current Condition Pt is a 64 year old male with a 10 month history of right shoulder pain and stiffness. Pt reports he was working with Physical Therapy at a different clinic for shoulder tendonitis, and must have overdone something at one point, and started experiencing increased shoulder pain. Pt reports that in August of 2019, he had a Cortisone injection by his PCP , which helped a little bit for a very short time. Pt was then scheduled to be seen by Dr Singh, however this visit was unfortunately canceled due to Covid-19 shut-down. Pt was finally able to see Dr Singh in December, where he got a Prednisone pack, which helped a lot. Additionally, at this time, pt also underwent an MRI, which showed a partial- thickness tear of the supraspinatus tendon, among other findings. Five weeks ago , pt had a follow-up, and received a second Cortisone injection, which helped a lot more than the first. Pt notes that his shoulder is about 80% now than what it had been, admits that it used to feel miserable. Pt notes continued pain trying to lift his arm, but I don't do that much. Pain is still affecting his sleep, however less now than it had been previously. Pt notes that he struggles to don/doff his shirts due to pain and immobility in his shoulder. Prior Treatments and Tests Right shoulder MRI: IMPRESSION : 1. Small focal high-grade bursal surface partial- thickness tear of the posterior distal supraspinatus tendon with corresponding tendinopathy. 2. Moderate infraspinatus tendinopathy without significant bearing. 3. Severe degenerative changes of the acromioclavicular joint may be resulting in subacromial impingement and clinical correlation is recommended. 4. Fluid within the subacromial subdeltoid bursa is likely reactive to the partial-thickness supraspinatus tendon tear. Please correlate clinically to exclude bursitis. 5. Edema about the inferior glenohumeral ligament is suspicious for a ligamentous sprain, but may be seen in the setting of adhesive capsulitis. 6. Degenerative changes of the labrum without a displaced tear evident. 7. Mild tendinopathy involving intra-articular portion of the biceps tendon. 8. Possible bone contusion of the greater tuberosity of the humeral head. No fractures. Per: Vicente Baumann M.D. on Treatment Goals Patient/Caregiver Goals I want my shoulder to get back to the way it was. PT-OP-C Subjective Start: 04/26/20 14:22 Freq: Status: Active Protocol: Document 05/13/20 12:00 DCW (Rec: 05/13/20 12:46 DCW [id number]) OP-PT Subjective Patient Comments Patient Comments Pt reports he was pretty sore after everything here on Wednesday. PT-OP-E Functional Tests Start: 04/26/20 14:22 Freq: Status: Active Protocol: Document 04/26/20 13:45 DCW (Rec: 04/26/20 14:57 DCW [id number]) Functional Tests Apley's Scratch Test Action 1- Left Posterior opposite shoulder Action 1- Right Anterior opposite shoulder Action 2- Left T1 Action 2- Right Right parietal bone Action 3- Left T8 Action 3- Right S1 PT-OP-F Manual Assessment Start: 04/26/20 14:22 Freq: Status: Active Protocol: Document 04/26/20 13:45 DCW (Rec: 04/26/20 14:57 DCW [id number]) Manual Assessments Joint Mobility Assessment Joint Mobility Assessment Stiffness throughout upper ROM with PROM PT-OP-K Range of Motion Start: 04/26/20 14:22 Freq: Status: Active Protocol: Document 04/26/20 13:45 DCW (Rec: 04/26/20 14:57 DCW [id number]) Shoulder Goniometric Range of Motion Shoulder Right Passive Testing Position Sitting Flexion 117 Abduction 90 External Rotation at 0 degrees Abduction 42 Right Active Testing Position Sitting Flexion 105 Extension 28 Abduction 86 External Rotation at 0 degrees Abduction 35 Internal Rotation Behind Back (text) S1 Left Shoulder ROM WFL Yes Shoulder ROM Limitations Shoulder ROM Limitations Soft Tissue Tightness,Muscle Weakness,Muscle Tone,Pain PT-OP-L Special Tests Start: 04/26/20 14:22 Freq: Status: Active Protocol: Document 04/26/20 13:45 DCW (Rec: 04/26/20 14:57 DCW [id number]) Special Tests Shoulder Special Tests Painful Arc Test Results Positive R Passive ER Rotator Cuff Test Results Positive R Lift-Off Rotator Cuff Test Results Positive R Alvarenga Mayank Impingement Test Results Positive R Belly Press Test Results Negative AC Joint Compression Test Results Negative PT-OP-M Strength Start: 04/26/20 14:22 Freq: Status: Active Protocol: Document 04/26/20 13:45 DCW (Rec: 04/26/20 14:57 DCW [id number]) Shoulder Strength Shoulder Manual Muscle Testing Right Flexion 2+ Poor+ Abduction (C5) 2+ Poor+ External Rotation 3 Fair PT-OP-Q Treatments Start: 04/26/20 14:22 Freq: Status: Active Protocol: Document 05/13/20 12:00 DCW (Rec: 05/13/20 12:46 DCW [id number]) Cardio Equipment Upper Body Ergometer (UBE) Duration (Minutes) 5 RPM 60 Seat Position 10 Height 4 Therapeutic Exercises Sitting Exercises 2 Sitting Exercise Name GH Pulleys - Flexion, Abduction Side bilateral Standing Exercises 8 Standing Exercise Name Corner Pec Stretch 7 Standing Exercise Name Chest Press /c PVC 6 Standing Exercise Name Extension /c PVC Manual Therapy Treatment Soft Tissue Mobilization 1 Body Location Supraspinatus Mobilization Type Sustained Pressure Intensity/Depth Superficial Joint Mobilizations 1 Joint Scapulothoracic Direction Lateral Grade III PT-OP-T Assessment and Plan Start: 04/26/20 14:22 Freq: Status: Active Protocol: Document 05/13/20 12:00 DCW (Rec: 05/13/20 12:46 DCW [id number]) Physical Therapy Assessment Impairments Impairments Functional Activities, Functional Mobility,Pain,ROM, Soft Tissue Mobility,Strength, Tone Goals Three Impairment Pt experiences sleep disturbances due to shoulder pain Group Home Goal (LTG) Pt to report 4 nights of sleep undisturbed by shoulder pain over the course of a one week period. LTG Duration 06/26/20 Two Impairment Pt struggles to don/doff shirt due to pain Group Home Goal (LTG) Pt to improve pain-free ROM of R shoulder to 120? both flexion and abduction in order to improve functional mobility to don/doff shirt. LTG Duration 06/26/20 One Impairment Pt does not have an appropriate home exercise program Short Term Goal (STG) Pt to be independent and compliant with an appropriate HEP STG Duration 05/26/20 Assessment Summary Assessment Had less intense session today to combat pt complaints of soreness last week. Pt tolerated very well today, had an easier time with not going into pain during exercise. Physical Therapy Plan Frequency and Duration Frequency of Treatment 2x/Week Duration of Treatment 2 months Plan of Care Start Date 04/26/20 Plan of Care End Date 06/26/20 Therapeutic Interventions Therapeutic Interventions Home Exercise Program,Joint Mobilizations,Manual Therapy, Patient/Caregiver Education, Self-Care/Home Management,Soft Tissue Mobilization, Therapeutic Activities, Therapeutic Exercises Next Visit Focus/Plan Next Note Type Treatment Note Next Visit Plan P/AROM exercises, strengthening
--- NOTE | 2020-05-15 12:47 | PT.OTN ---
Current Diagnoses Pain in right shoulder (05/15/20) Stiffness of right shoulder, not elsewhere classified (05/15/20) Adhesive capsulitis of right shoulder (05/15/20) Other shoulder lesions, right shoulder (05/15/20) Physical Therapy Treatment Note PT-OP-A Visit Information Start: 04/26/20 14:22 Freq: Status: Active Protocol: Document 05/15/20 12:05 DCW (Rec: 05/15/20 12:47 DCW [id number]) Out-Patient Physical Therapy Visit Information Visit Information Visit Type Treatment Note Visit Start Time 12:05 Visit Stop Time 12:45 Total Visit Minutes 40 Visit Number 6 Number of DONOR RECRUITER Visits 0 Evaluation Information Evaluation Date 04/26/20 PT-OP-B Current Condition Start: 04/26/20 14:22 Freq: Status: Active Protocol: Document 04/26/20 13:45 DCW (Rec: 04/26/20 14:57 DCW [id number]) Current Condition History of Current Condition Onset Date June, Current Complaints Shoulder pain, stiffness, loss of functional mobility History of Current Condition Pt is a 64 year old male with a 10 month history of right shoulder pain and stiffness. Pt reports he was working with Physical Therapy at a different clinic for shoulder tendonitis, and must have overdone something at one point, and started experiencing increased shoulder pain. Pt reports that in August of 2019, he had a Cortisone injection by his PCP , which helped a little bit for a very short time. Pt was then scheduled to be seen by Dr Singh, however this visit was unfortunately canceled due to Covid-19 shut-down. Pt was finally able to see Dr Singh in December, where he got a Prednisone pack, which helped a lot. Additionally, at this time, pt also underwent an MRI, which showed a partial- thickness tear of the supraspinatus tendon, among other findings. Five weeks ago , pt had a follow-up, and received a second Cortisone injection, which helped a lot more than the first. Pt notes that his shoulder is about 80% now than what it had been, admits that it used to feel miserable. Pt notes continued pain trying to lift his arm, but I don't do that much. Pain is still affecting his sleep, however less now than it had been previously. Pt notes that he struggles to don/doff his shirts due to pain and immobility in his shoulder. Prior Treatments and Tests Right shoulder MRI: IMPRESSION : 1. Small focal high-grade bursal surface partial- thickness tear of the posterior distal supraspinatus tendon with corresponding tendinopathy. 2. Moderate infraspinatus tendinopathy without significant bearing. 3. Severe degenerative changes of the acromioclavicular joint may be resulting in subacromial impingement and clinical correlation is recommended. 4. Fluid within the subacromial subdeltoid bursa is likely reactive to the partial-thickness supraspinatus tendon tear. Please correlate clinically to exclude bursitis. 5. Edema about the inferior glenohumeral ligament is suspicious for a ligamentous sprain, but may be seen in the setting of adhesive capsulitis. 6. Degenerative changes of the labrum without a displaced tear evident. 7. Mild tendinopathy involving intra-articular portion of the biceps tendon. 8. Possible bone contusion of the greater tuberosity of the humeral head. No fractures. Per: Vicente Baumann M.D. on Treatment Goals Patient/Caregiver Goals I want my shoulder to get back to the way it was. PT-OP-C Subjective Start: 04/26/20 14:22 Freq: Status: Active Protocol: Document 05/15/20 12:05 DCW (Rec: 05/15/20 12:47 DCW [id number]) OP-PT Subjective Patient Comments Patient Comments Pt admits to getting frustrated that he is not progressing as quickly as he would like, but he would still like to put off his return appointment with Dr Singh in order to get more work with therapy before feeling like he needs to make a decision on surgery. PT-OP-E Functional Tests Start: 04/26/20 14:22 Freq: Status: Active Protocol: Document 04/26/20 13:45 DCW (Rec: 04/26/20 14:57 DCW [id number]) Functional Tests Maríaey's Scratch Test Action 1- Left Posterior opposite shoulder Action 1- Right Anterior opposite shoulder Action 2- Left T1 Action 2- Right Right parietal bone Action 3- Left T8 Action 3- Right S1 PT-OP-F Manual Assessment Start: 04/26/20 14:22 Freq: Status: Active Protocol: Document 04/26/20 13:45 DCW (Rec: 04/26/20 14:57 DCW [id number]) Manual Assessments Joint Mobility Assessment Joint Mobility Assessment Stiffness throughout upper ROM with PROM PT-OP-K Range of Motion Start: 04/26/20 14:22 Freq: Status: Active Protocol: Document 04/26/20 13:45 DCW (Rec: 04/26/20 14:57 DCW [id number]) Shoulder Goniometric Range of Motion Shoulder Right Passive Testing Position Sitting Flexion 117 Abduction 90 External Rotation at 0 degrees Abduction 42 Right Active Testing Position Sitting Flexion 105 Extension 28 Abduction 86 External Rotation at 0 degrees Abduction 35 Internal Rotation Behind Back (text) S1 Left Shoulder ROM WFL Yes Shoulder ROM Limitations Shoulder ROM Limitations Soft Tissue Tightness,Muscle Weakness,Muscle Tone,Pain PT-OP-L Special Tests Start: 04/26/20 14:22 Freq: Status: Active Protocol: Document 04/26/20 13:45 DCW (Rec: 04/26/20 14:57 DCW [id number]) Special Tests Shoulder Special Tests Painful Arc Test Results Positive R Passive ER Rotator Cuff Test Results Positive R Lift-Off Rotator Cuff Test Results Positive R Alvarenga Mayank Impingement Test Results Positive R Belly Press Test Results Negative AC Joint Compression Test Results Negative PT-OP-M Strength Start: 04/26/20 14:22 Freq: Status: Active Protocol: Document 04/26/20 13:45 DCW (Rec: 04/26/20 14:57 DCW [id number]) Shoulder Strength Shoulder Manual Muscle Testing Right Flexion 2+ Poor+ Abduction (C5) 2+ Poor+ External Rotation 3 Fair PT-OP-Q Treatments Start: 04/26/20 14:22 Freq: Status: Active Protocol: Document 05/15/20 12:05 DCW (Rec: 05/15/20 12:47 DCW [id number]) Cardio Equipment Upper Body Ergometer (UBE) Duration (Minutes) 5 RPM 60 Seat Position 11 Height 4 Therapeutic Exercises Supine Exercises 1 Supine Exercise Name Flexion /c PVC Side bilateral Sitting Exercises 2 Sitting Exercise Name GH Pulleys - Flexion, Abduction Side bilateral Standing Exercises 1 Standing Exercise Name Wall circles with ball Side right Comments flexion/abduction Other Exercises 2 Other Exercise Name Wall clocks Side bilateral Resistance Yellow Equipment Used T-band 1 Other Exercise Name UE resisted side-stepping Side bilateral Resistance Yellow Equipment Used T-band Manual Therapy Treatment Soft Tissue Mobilization 1 Body Location Supraspinatus Mobilization Type Sustained Pressure Intensity/Depth Superficial Joint Mobilizations 1 Joint Scapulothoracic Direction Lateral Grade III PT-OP-T Assessment and Plan Start: 04/26/20 14:22 Freq: Status: Active Protocol: Document 05/15/20 12:05 DCW (Rec: 05/15/20 12:47 DCW [id number]) Physical Therapy Assessment Impairments Impairments Functional Activities, Functional Mobility,Pain,ROM, Soft Tissue Mobility,Strength, Tone Goals Three Impairment Pt experiences sleep disturbances due to shoulder pain [employer] Goal (LTG) Pt to report 4 nights of sleep undisturbed by shoulder pain over the course of a one week period. LTG Duration 06/26/20 Two Impairment Pt struggles to don/doff shirt due to pain [employer] Goal (LTG) Pt to improve pain-free ROM of R shoulder to 120? both flexion and abduction in order to improve functional mobility to don/doff shirt. LTG Duration 06/26/20 One Impairment Pt does not have an appropriate home exercise program Short Term Goal (STG) Pt to be independent and compliant with an appropriate HEP STG Duration 05/26/20 Assessment Summary Assessment Pt tolerating treatment well, still experiencing pain with some activities and positioning. Physical Therapy Plan Frequency and Duration Frequency of Treatment 2x/Week Duration of Treatment 2 months Plan of Care Start Date 04/26/20 Plan of Care End Date 06/26/20 Therapeutic Interventions Therapeutic Interventions Home Exercise Program,Joint Mobilizations,Manual Therapy, Patient/Caregiver Education, Self-Care/Home Management,Soft Tissue Mobilization, Therapeutic Activities, Therapeutic Exercises Next Visit Focus/Plan Next Note Type Treatment Note Next Visit Plan P/AROM exercises, strengthening
--- NOTE | 2020-05-27 14:36 | PT.OTN ---
Current Diagnoses Pain in right shoulder (05/27/20) Stiffness of right shoulder, not elsewhere classified (05/27/20) Adhesive capsulitis of right shoulder (05/27/20) Other shoulder lesions, right shoulder (05/27/20) Physical Therapy Treatment Note PT-OP-A Visit Information Start: 04/26/20 14:22 Freq: Status: Active Protocol: Document 05/27/20 14:29 MA (Rec: 05/27/20 14:36 MA [id number]) Out-Patient Physical Therapy Visit Information Visit Information Visit Type Treatment Note Visit Start Time 13:45 Visit Stop Time 14:28 Total Visit Minutes 43 Visit Number 7 Number of MONITOR AND STORAGE BIN TENDER Visits 1 PT-OP-B Current Condition Start: 04/26/20 14:22 Freq: Status: Active Protocol: Document 04/26/20 13:45 DCW (Rec: 04/26/20 14:57 DCW [id number]) Current Condition History of Current Condition Onset Date June, Current Complaints Shoulder pain, stiffness, loss of functional mobility History of Current Condition Pt is a 64 year old male with a 10 month history of right shoulder pain and stiffness. Pt reports he was working with Physical Therapy at a different clinic for shoulder tendonitis, and must have overdone something at one point, and started experiencing increased shoulder pain. Pt reports that in August of 2019, he had a Cortisone injection by his PCP , which helped a little bit for a very short time. Pt was then scheduled to be seen by Dr Singh, however this visit was unfortunately canceled due to Covid-19 shut-down. Pt was finally able to see Dr Singh in December, where he got a Prednisone pack, which helped a lot. Additionally, at this time, pt also underwent an MRI, which showed a partial- thickness tear of the supraspinatus tendon, among other findings. Five weeks ago , pt had a follow-up, and received a second Cortisone injection, which helped a lot more than the first. Pt notes that his shoulder is about 80% now than what it had been, admits that it used to feel miserable. Pt notes continued pain trying to lift his arm, but I don't do that much. Pain is still affecting his sleep, however less now than it had been previously. Pt notes that he struggles to don/doff his shirts due to pain and immobility in his shoulder. Prior Treatments and Tests Right shoulder MRI: IMPRESSION : 1. Small focal high-grade bursal surface partial- thickness tear of the posterior distal supraspinatus tendon with corresponding tendinopathy. 2. Moderate infraspinatus tendinopathy without significant bearing. 3. Severe degenerative changes of the acromioclavicular joint may be resulting in subacromial impingement and clinical correlation is recommended. 4. Fluid within the subacromial subdeltoid bursa is likely reactive to the partial-thickness supraspinatus tendon tear. Please correlate clinically to exclude bursitis. 5. Edema about the inferior glenohumeral ligament is suspicious for a ligamentous sprain, but may be seen in the setting of adhesive capsulitis. 6. Degenerative changes of the labrum without a displaced tear evident. 7. Mild tendinopathy involving intra-articular portion of the biceps tendon. 8. Possible bone contusion of the greater tuberosity of the humeral head. No fractures. Per: Vicente Baumann M.D. on Treatment Goals Patient/Caregiver Goals I want my shoulder to get back to the way it was. PT-OP-C Subjective Start: 04/26/20 14:22 Freq: Status: Active Protocol: Document 05/27/20 14:29 MA (Rec: 05/27/20 14:36 MA [id number]) OP-PT Subjective Patient Comments Patient Comments Pt will see Dr Singh again after Thanksgiving. Pt states he is still having pain with overhead activities PT-OP-E Functional Tests Start: 04/26/20 14:22 Freq: Status: Active Protocol: Document 04/26/20 13:45 DCW (Rec: 04/26/20 14:57 DCW [id number]) Functional Tests Apley's Scratch Test Action 1- Left Posterior opposite shoulder Action 1- Right Anterior opposite shoulder Action 2- Left T1 Action 2- Right Right parietal bone Action 3- Left T8 Action 3- Right S1 PT-OP-F Manual Assessment Start: 04/26/20 14:22 Freq: Status: Active Protocol: Document 04/26/20 13:45 DCW (Rec: 04/26/20 14:57 DCW [id number]) Manual Assessments Joint Mobility Assessment Joint Mobility Assessment Stiffness throughout upper ROM with PROM PT-OP-K Range of Motion Start: 04/26/20 14:22 Freq: Status: Active Protocol: Document 04/26/20 13:45 DCW (Rec: 04/26/20 14:57 DCW [id number]) Shoulder Goniometric Range of Motion Shoulder Right Passive Testing Position Sitting Flexion 117 Abduction 90 External Rotation at 0 degrees Abduction 42 Right Active Testing Position Sitting Flexion 105 Extension 28 Abduction 86 External Rotation at 0 degrees Abduction 35 Internal Rotation Behind Back (text) S1 Left Shoulder ROM WFL Yes Shoulder ROM Limitations Shoulder ROM Limitations Soft Tissue Tightness,Muscle Weakness,Muscle Tone,Pain PT-OP-L Special Tests Start: 04/26/20 14:22 Freq: Status: Active Protocol: Document 04/26/20 13:45 DCW (Rec: 04/26/20 14:57 DCW [id number]) Special Tests Shoulder Special Tests Painful Arc Test Results Positive R Passive ER Rotator Cuff Test Results Positive R Lift-Off Rotator Cuff Test Results Positive R Alvarenga Mayank Impingement Test Results Positive R Belly Press Test Results Negative AC Joint Compression Test Results Negative PT-OP-M Strength Start: 04/26/20 14:22 Freq: Status: Active Protocol: Document 04/26/20 13:45 DCW (Rec: 04/26/20 14:57 DCW [id number]) Shoulder Strength Shoulder Manual Muscle Testing Right Flexion 2+ Poor+ Abduction (C5) 2+ Poor+ External Rotation 3 Fair PT-OP-Q Treatments Start: 04/26/20 14:22 Freq: Status: Active Protocol: Document 05/27/20 14:29 MA (Rec: 05/27/20 14:36 MA [email or web address]) Cardio Equipment Upper Body Ergometer (UBE) Duration (Minutes) 6 RPM 65 Seat Position 11 Height 4 Therapeutic Exercises Sitting Exercises 2 Sitting Exercise Name GH Pulleys - Flexion, Abduction Side bilateral Standing Exercises Wall Walk ups Reps/Minutes hold for 30 sec Comments pt needing verbal reminders to relax shd IR/ER Side right Reps/Minutes 2x8 IR/ER 1 Standing Exercise Name Wall circles with ball Side right Comments flexion/abduction Other Exercises 2 Other Exercise Name Wall clocks Side bilateral Resistance Yellow Equipment Used T-band 1 Other Exercise Name UE resisted side-stepping Side bilateral Resistance Yellow Equipment Used T-band PT-OP-T Assessment and Plan Start: 04/26/20 14:22 Freq: Status: Active Protocol: Document 05/27/20 14:29 MA (Rec: 05/27/20 14:36 MA [id number]) Physical Therapy Assessment Goals Three Impairment Pt experiences sleep disturbances due to shoulder pain [employer] Goal (LTG) Pt to report 4 nights of sleep undisturbed by shoulder pain over the course of a one week period. LTG Duration 06/26/20 Two Impairment Pt struggles to don/doff shirt due to pain [employer] Goal (LTG) Pt to improve pain-free ROM of R shoulder to 120? both flexion and abduction in order to improve functional mobility to don/doff shirt. LTG Duration 06/26/20 One Impairment Pt does not have an appropriate home exercise program Short Term Goal (STG) Pt to be independent and compliant with an appropriate HEP STG Duration 05/26/20 Assessment Summary Assessment As pt fatigues he tends to tense through right shd. Needed verbal and tactile cues to relax shd. 2/10 pain with any abduction exercises during tx Physical Therapy Plan Frequency and Duration Frequency of Treatment 2x/Week Duration of Treatment 2 months Plan of Care Start Date 04/26/20 Plan of Care End Date 06/26/20 Next Visit Focus/Plan Next Note Type Treatment Note Next Visit Plan P/AROM exercises, strengtehing ; work on ABD ROM
--- NOTE | 2020-05-31 15:15 | PT.OTN ---
Current Diagnoses Pain in right shoulder (05/31/20) Stiffness of right shoulder, not elsewhere classified (05/31/20) Adhesive capsulitis of right shoulder (05/31/20) Other shoulder lesions, right shoulder (05/31/20) Physical Therapy Treatment Note PT-OP-A Visit Information Start: 04/26/20 14:22 Freq: Status: Active Protocol: Document 05/31/20 13:50 MA (Rec: 05/31/20 14:30 MA [id number]) Out-Patient Physical Therapy Visit Information Visit Information Visit Type Treatment Note Visit Start Time 13:46 Visit Stop Time 14:26 Total Visit Minutes 40 Visit Number 8 Number of NP Visits 2 PT-OP-B Current Condition Start: 04/26/20 14:22 Freq: Status: Active Protocol: Document 04/26/20 13:45 DCW (Rec: 04/26/20 14:57 DCW [id number]) Current Condition History of Current Condition Onset Date June, Current Complaints Shoulder pain, stiffness, loss of functional mobility History of Current Condition Pt is a 64 year old male with a 10 month history of right shoulder pain and stiffness. Pt reports he was working with Physical Therapy at a different clinic for shoulder tendonitis, and must have overdone something at one point, and started experiencing increased shoulder pain. Pt reports that in August of 2019, he had a Cortisone injection by his PCP , which helped a little bit for a very short time. Pt was then scheduled to be seen by Dr Singh, however this visit was unfortunately canceled due to Covid-19 shut-down. Pt was finally able to see Dr Singh in December, where he got a Prednisone pack, which helped a lot. Additionally, at this time, pt also underwent an MRI, which showed a partial- thickness tear of the supraspinatus tendon, among other findings. Five weeks ago , pt had a follow-up, and received a second Cortisone injection, which helped a lot more than the first. Pt notes that his shoulder is about 80% now than what it had been, admits that it used to feel miserable. Pt notes continued pain trying to lift his arm, but I don't do that much. Pain is still affecting his sleep, however less now than it had been previously. Pt notes that he struggles to don/doff his shirts due to pain and immobility in his shoulder. Prior Treatments and Tests Right shoulder MRI: IMPRESSION : 1. Small focal high-grade bursal surface partial- thickness tear of the posterior distal supraspinatus tendon with corresponding tendinopathy. 2. Moderate infraspinatus tendinopathy without significant bearing. 3. Severe degenerative changes of the acromioclavicular joint may be resulting in subacromial impingement and clinical correlation is recommended. 4. Fluid within the subacromial subdeltoid bursa is likely reactive to the partial-thickness supraspinatus tendon tear. Please correlate clinically to exclude bursitis. 5. Edema about the inferior glenohumeral ligament is suspicious for a ligamentous sprain, but may be seen in the setting of adhesive capsulitis. 6. Degenerative changes of the labrum without a displaced tear evident. 7. Mild tendinopathy involving intra-articular portion of the biceps tendon. 8. Possible bone contusion of the greater tuberosity of the humeral head. No fractures. Per: Vicente Baumann M.D. on Treatment Goals Patient/Caregiver Goals I want my shoulder to get back to the way it was. PT-OP-C Subjective Start: 04/26/20 14:22 Freq: Status: Active Protocol: Document 05/31/20 13:50 MA (Rec: 05/31/20 14:30 MA [id number]) OP-PT Subjective Patient Comments Patient Comments Pt said he had increased pain after last session and tweaked his back this morning on the lower right side. PT-OP-E Functional Tests Start: 04/26/20 14:22 Freq: Status: Active Protocol: Document 04/26/20 13:45 DCW (Rec: 04/26/20 14:57 DCW [id number]) Functional Tests Apley's Scratch Test Action 1- Left Posterior opposite shoulder Action 1- Right Anterior opposite shoulder Action 2- Left T1 Action 2- Right Right parietal bone Action 3- Left T8 Action 3- Right S1 PT-OP-F Manual Assessment Start: 04/26/20 14:22 Freq: Status: Active Protocol: Document 04/26/20 13:45 DCW (Rec: 04/26/20 14:57 DCW [id number]) Manual Assessments Joint Mobility Assessment Joint Mobility Assessment Stiffness throughout upper ROM with PROM PT-OP-K Range of Motion Start: 04/26/20 14:22 Freq: Status: Active Protocol: Document 04/26/20 13:45 DCW (Rec: 04/26/20 14:57 DCW [id number]) Shoulder Goniometric Range of Motion Shoulder Right Passive Testing Position Sitting Flexion 117 Abduction 90 External Rotation at 0 degrees Abduction 42 Right Active Testing Position Sitting Flexion 105 Extension 28 Abduction 86 External Rotation at 0 degrees Abduction 35 Internal Rotation Behind Back (text) S1 Left Shoulder ROM WFL Yes Shoulder ROM Limitations Shoulder ROM Limitations Soft Tissue Tightness,Muscle Weakness,Muscle Tone,Pain PT-OP-L Special Tests Start: 04/26/20 14:22 Freq: Status: Active Protocol: Document 04/26/20 13:45 DCW (Rec: 04/26/20 14:57 DCW [id number]) Special Tests Shoulder Special Tests Painful Arc Test Results Positive R Passive ER Rotator Cuff Test Results Positive R Lift-Off Rotator Cuff Test Results Positive R Alvarenga Mayank Impingement Test Results Positive R Belly Press Test Results Negative AC Joint Compression Test Results Negative PT-OP-M Strength Start: 04/26/20 14:22 Freq: Status: Active Protocol: Document 04/26/20 13:45 DCW (Rec: 04/26/20 14:57 DCW [id number]) Shoulder Strength Shoulder Manual Muscle Testing Right Flexion 2+ Poor+ Abduction (C5) 2+ Poor+ External Rotation 3 Fair PT-OP-Q Treatments Start: 04/26/20 14:22 Freq: Status: Active Protocol: Document 05/31/20 13:50 MA (Rec: 05/31/20 14:30 MA [id number]) Cardio Equipment Upper Body Ergometer (UBE) Duration (Minutes) 6 RPM 60 Seat Position 11 Height 4 Therapeutic Exercises Sitting Exercises 2 Sitting Exercise Name GH Pulleys - Flexion, Abduction Side bilateral Standing Exercises Doorway pec stretch Reps/Minutes 60 sec Extension Standing Exercise Name Lat pull down Side bilateral Equipment Used TB#2 Reps/Minutes 2x10 IR/ER Side right Equipment Used TB#2 Reps/Minutes 2x10 IR/ER Other Exercises 2 Other Exercise Name Wall clocks Side bilateral Resistance Yellow Equipment Used T-band Comments 5/10 pain going up to 1:00 1 Other Exercise Name UE resisted side-stepping Side bilateral Resistance Yellow Equipment Used T-band Manual Therapy Treatment Soft Tissue Mobilization 1 Body Location Supraspinatus Mobilization Type Rolling,Sustained Pressure Intensity/Depth Moderate Body Position Hooklying Comments pt able to tolerate moderate pressure with between 3-5/10 pain PT-OP-T Assessment and Plan Start: 04/26/20 14:22 Freq: Status: Active Protocol: Document 05/31/20 16:05 MA (Rec: 05/31/20 16:09 MA [id number]) Physical Therapy Assessment Goals Three Impairment Pt experiences sleep disturbances due to shoulder pain [facility] Goal (LTG) Pt to report 4 nights of sleep undisturbed by shoulder pain over the course of a one week period. LTG Duration 06/26/20 Two Impairment Pt struggles to don/doff shirt due to pain [facility] Goal (LTG) Pt to improve pain-free ROM of R shoulder to 120? both flexion and abduction in order to improve functional mobility to don/doff shirt. LTG Duration 06/26/20 One Impairment Pt does not have an appropriate home exercise program Short Term Goal (STG) Pt to be independent and compliant with an appropriate HEP STG Duration 05/26/20 Assessment Summary Assessment Pt had increased ABD ROM R shd during today's session after grady's and manual therapy. Pt needs cues for scapular stabilization during wall circles with ball. Pt had no pain during band work IR/ER and extension during tx Physical Therapy Plan Frequency and Duration Frequency of Treatment 2x/Week Duration of Treatment 2 months Plan of Care Start Date 04/26/20 Plan of Care End Date 06/26/20 Therapeutic Interventions Therapeutic Interventions Home Exercise Program,Joint Mobilizations,Manual Therapy, Patient/Caregiver Education, Self-Care/Home Management,Soft Tissue Mobilization, Therapeutic Activities, Therapeutic Exercises Next Visit Focus/Plan Next Note Type Treatment Note Next Visit Plan P/AROM exercises, strengtehing ; work on ABD ROM and STM to supraspinatus
--- NOTE | 2020-06-03 14:45 | PT.OTN ---
Current Diagnoses Pain in right shoulder (06/03/20) Stiffness of right shoulder, not elsewhere classified (06/03/20) Adhesive capsulitis of right shoulder (06/03/20) Other shoulder lesions, right shoulder (06/03/20) Physical Therapy Treatment Note PT-OP-A Visit Information Start: 04/26/20 14:22 Freq: Status: Active Protocol: Document 06/03/20 13:50 MA (Rec: 06/03/20 14:44 MA [id number]) Out-Patient Physical Therapy Visit Information Visit Information Visit Type Treatment Note Visit Start Time 13:47 Visit Stop Time 14:30 Total Visit Minutes 43 Visit Number 9 Number of SUPERVISOR [employer] Visits 3 PT-OP-B Current Condition Start: 04/26/20 14:22 Freq: Status: Active Protocol: Document 04/26/20 13:45 DCW (Rec: 04/26/20 14:57 DCW [id number]) Current Condition History of Current Condition Onset Date June, Current Complaints Shoulder pain, stiffness, loss of functional mobility History of Current Condition Pt is a 64 year old male with a 10 month history of right shoulder pain and stiffness. Pt reports he was working with Physical Therapy at a different clinic for shoulder tendonitis, and must have overdone something at one point, and started experiencing increased shoulder pain. Pt reports that in August of 2019, he had a Cortisone injection by his PCP , which helped a little bit for a very short time. Pt was then scheduled to be seen by Dr Singh, however this visit was unfortunately canceled due to Covid-19 shut-down. Pt was finally able to see Dr Singh in December, where he got a Prednisone pack, which helped a lot. Additionally, at this time, pt also underwent an MRI, which showed a partial- thickness tear of the supraspinatus tendon, among other findings. Five weeks ago , pt had a follow-up, and received a second Cortisone injection, which helped a lot more than the first. Pt notes that his shoulder is about 80% now than what it had been, admits that it used to feel miserable. Pt notes continued pain trying to lift his arm, but I don't do that much. Pain is still affecting his sleep, however less now than it had been previously. Pt notes that he struggles to don/doff his shirts due to pain and immobility in his shoulder. Prior Treatments and Tests Right shoulder MRI: IMPRESSION : 1. Small focal high-grade bursal surface partial- thickness tear of the posterior distal supraspinatus tendon with corresponding tendinopathy. 2. Moderate infraspinatus tendinopathy without significant bearing. 3. Severe degenerative changes of the acromioclavicular joint may be resulting in subacromial impingement and clinical correlation is recommended. 4. Fluid within the subacromial subdeltoid bursa is likely reactive to the partial-thickness supraspinatus tendon tear. Please correlate clinically to exclude bursitis. 5. Edema about the inferior glenohumeral ligament is suspicious for a ligamentous sprain, but may be seen in the setting of adhesive capsulitis. 6. Degenerative changes of the labrum without a displaced tear evident. 7. Mild tendinopathy involving intra-articular portion of the biceps tendon. 8. Possible bone contusion of the greater tuberosity of the humeral head. No fractures. Per: Vicente Baumann M.D. on Treatment Goals Patient/Caregiver Goals I want my shoulder to get back to the way it was. PT-OP-C Subjective Start: 04/26/20 14:22 Freq: Status: Active Protocol: Document 06/03/20 13:50 MA (Rec: 06/03/20 14:44 MA [id number]) OP-PT Subjective Patient Comments Patient Comments Pt said his pain has decreased since last session and he has been performing self STM over R lateral shd PT-OP-E Functional Tests Start: 04/26/20 14:22 Freq: Status: Active Protocol: Document 04/26/20 13:45 DCW (Rec: 04/26/20 14:57 DCW [id number]) Functional Tests Apley's Scratch Test Action 1- Left Posterior opposite shoulder Action 1- Right Anterior opposite shoulder Action 2- Left T1 Action 2- Right Right parietal bone Action 3- Left T8 Action 3- Right S1 PT-OP-F Manual Assessment Start: 04/26/20 14:22 Freq: Status: Active Protocol: Document 04/26/20 13:45 DCW (Rec: 04/26/20 14:57 DCW [id number]) Manual Assessments Joint Mobility Assessment Joint Mobility Assessment Stiffness throughout upper ROM with PROM PT-OP-K Range of Motion Start: 04/26/20 14:22 Freq: Status: Active Protocol: Document 04/26/20 13:45 DCW (Rec: 04/26/20 14:57 DCW [id number]) Shoulder Goniometric Range of Motion Shoulder Right Passive Testing Position Sitting Flexion 117 Abduction 90 External Rotation at 0 degrees Abduction 42 Right Active Testing Position Sitting Flexion 105 Extension 28 Abduction 86 External Rotation at 0 degrees Abduction 35 Internal Rotation Behind Back (text) S1 Left Shoulder ROM WFL Yes Shoulder ROM Limitations Shoulder ROM Limitations Soft Tissue Tightness,Muscle Weakness,Muscle Tone,Pain PT-OP-L Special Tests Start: 04/26/20 14:22 Freq: Status: Active Protocol: Document 04/26/20 13:45 DCW (Rec: 04/26/20 14:57 DCW [id number]) Special Tests Shoulder Special Tests Painful Arc Test Results Positive R Passive ER Rotator Cuff Test Results Positive R Lift-Off Rotator Cuff Test Results Positive R Alvarenga Mayank Impingement Test Results Positive R Belly Press Test Results Negative AC Joint Compression Test Results Negative PT-OP-M Strength Start: 04/26/20 14:22 Freq: Status: Active Protocol: Document 04/26/20 13:45 DCW (Rec: 04/26/20 14:57 DCW [id number]) Shoulder Strength Shoulder Manual Muscle Testing Right Flexion 2+ Poor+ Abduction (C5) 2+ Poor+ External Rotation 3 Fair PT-OP-Q Treatments Start: 04/26/20 14:22 Freq: Status: Active Protocol: Document 06/03/20 13:50 MA (Rec: 06/03/20 14:44 MA [id number]) Cardio Equipment Upper Body Ergometer (UBE) Duration (Minutes) 6 RPM 65 Seat Position 11 Height 4 Therapeutic Exercises Standing Exercises Wall Walk ups Standing Exercise Name Flex/ABD Side right Reps/Minutes 30 second hold 1 Standing Exercise Name Wall Cirlces with Ball Equipment Used 3# ball Reps/Minutes 2x8 Comments Clockwise, counter-clockwise Other Exercises 2 Other Exercise Name Wall clocks Side bilateral Resistance Yellow Equipment Used T-band Comments 4/10 pain r shd 1 Other Exercise Name UE resisted side-stepping Side bilateral Resistance Yellow Equipment Used T-band Comments 2/10 pain R shd Manual Therapy Treatment Soft Tissue Mobilization 1 Body Location Supraspinatus Mobilization Type Rolling,Sustained Pressure Intensity/Depth Moderate Body Position Hooklying Comments pt able to tolerate moderate pressure with between 3-5/10 pain PT-OP-T Assessment and Plan Start: 04/26/20 14:22 Freq: Status: Active Protocol: Document 06/03/20 13:50 MA (Rec: 06/03/20 14:44 MA [id number]) Physical Therapy Assessment Goals Three Impairment Pt experiences sleep disturbances due to shoulder pain Alf Goal (LTG) Pt to report 4 nights of sleep undisturbed by shoulder pain over the course of a one week period. LTG Duration 06/26/20 Two Impairment Pt struggles to don/doff shirt due to pain Gang Head Saw Operator Goal (LTG) Pt to improve pain-free ROM of R shoulder to 120? both flexion and abduction in order to improve functional mobility to don/doff shirt. LTG Duration 06/26/20 One Impairment Pt does not have an appropriate home exercise program Short Term Goal (STG) Pt to be independent and compliant with an appropriate HEP STG Duration 05/26/20 Assessment Summary Assessment Pt arrived with decreased AROM ABD from last session, but after STM to supraspinatu, pt able to actively ABD >90 with minimal pain and increaed inferior glide of humerus. During ther ex, pt had decreased pain during all exercises with better movement at GH joint Physical Therapy Plan Frequency and Duration Frequency of Treatment 2x/Week Duration of Treatment 2 months Plan of Care Start Date 04/26/20 Plan of Care End Date 06/26/20 Therapeutic Interventions Therapeutic Interventions Home Exercise Program,Joint Mobilizations,Manual Therapy, Patient/Caregiver Education, Self-Care/Home Management,Soft Tissue Mobilization, Therapeutic Activities, Therapeutic Exercises Next Visit Focus/Plan Next Note Type Treatment Note Next Visit Plan P/AROM exercises, strengtehing ; work on ABD ROM and STM to supraspinatus
--- NOTE | 2020-06-05 14:30 | PT.OTN ---
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 Pt reports he was working with Physical Therapy at a different clinic for shoulder tendonitis, and must have overdone something at one point, and started experiencing increased shoulder pain. Pt reports that in August of 2019, he had a Cortisone injection by his PCP , which helped a little bit for a very short time. Pt was then scheduled to be seen by Dr Singh, however this visit was unfortunately canceled due to Covid-19 shut-down. Pt was finally able to see Dr Singh in December, where he got a Prednisone pack, which helped a lot. Additionally, at this time, pt also underwent an MRI, which showed a partial- thickness tear of the supraspinatus tendon, among other findings. Five weeks ago , pt had a follow-up, and received a second Cortisone injection, which helped a lot more than the first. Pt notes that his shoulder is about 80% now than what it had been, admits that it used to feel miserable. Pt notes continued pain trying to lift his arm, but I don't do that much. Pain is still affecting his sleep, however less now than it had been previously. Pt notes that he struggles to don/doff his shirts due to pain and immobility in his shoulder. Prior Treatments and Tests Right shoulder MRI: IMPRESSION : 1. Small focal high-grade bursal surface partial- thickness tear of the posterior distal supraspinatus tendon with corresponding tendinopathy. 2. Moderate infraspinatus tendinopathy without significant bearing. 3. Severe degenerative changes of the acromioclavicular joint may be resulting in subacromial impingement and clinical correlation is recommended. 4. Fluid within the subacromial subdeltoid bursa is likely reactive to the partial-thickness supraspinatus tendon tear. Please correlate clinically to exclude bursitis. 5. Edema about the inferior glenohumeral ligament is suspicious for a ligamentous sprain, but may be seen in the setting of adhesive capsulitis. 6. Degenerative changes of the labrum without a displaced tear evident. 7. Mild tendinopathy involving intra-articular portion of the biceps tendon. 8. Possible bone contusion of the greater tuberosity of the humeral head. No fractures. Per: Vicente Baumann M.D. on Treatment Goals Patient/Caregiver Goals I want my shoulder to get back to the way it was. PT-OP-C Subjective Start: 04/26/20 14:22 Freq: Status: Active Protocol: Document 06/05/20 13:50 MA (Rec: 06/05/20 14:31 MA [id number]) OP-PT Subjective Patient Comments Patient Comments Pt states his shd has been feeling better overall and he feels like he has normal ROM demonstrating flexion, but still struggles with ABD PT-OP-E Functional Tests Start: 04/26/20 14:22 Freq: Status: Active Protocol: Document 04/26/20 13:45 DCW (Rec: 04/26/20 14:57 DCW [id number]) Functional Tests Apley's Scratch Test Action 1- Left Posterior opposite shoulder Action 1- Right Anterior opposite shoulder Action 2- Left T1 Action 2- Right Right parietal bone Action 3- Left T8 Action 3- Right S1 PT-OP-F Manual Assessment Start: 04/26/20 14:22 Freq: Status: Active Protocol: Document 04/26/20 13:45 DCW (Rec: 04/26/20 14:57 DCW [id number]) Manual Assessments Joint Mobility Assessment Joint Mobility Assessment Stiffness throughout upper ROM with PROM PT-OP-K Range of Motion Start: 04/26/20 14:22 Freq: Status: Active Protocol: Document 04/26/20 13:45 DCW (Rec: 04/26/20 14:57 DCW [id number]) Shoulder Goniometric Range of Motion Shoulder Right Passive Testing Position Sitting Flexion 117 Abduction 90 External Rotation at 0 degrees Abduction 42 Right Active Testing Position Sitting Flexion 105 Extension 28 Abduction 86 External Rotation at 0 degrees Abduction 35 Internal Rotation Behind Back (text) S1 Left Shoulder ROM WFL Yes Shoulder ROM Limitations Shoulder ROM Limitations Soft Tissue Tightness,Muscle Weakness,Muscle Tone,Pain PT-OP-L Special Tests Start: 04/26/20 14:22 Freq: Status: Active Protocol: Document 04/26/20 13:45 DCW (Rec: 04/26/20 14:57 DCW [id number]) Special Tests Shoulder Special Tests Painful Arc Test Results Positive R Passive ER Rotator Cuff Test Results Positive R Lift-Off Rotator Cuff Test Results Positive R Alvarenga Mayank Impingement Test Results Positive R Belly Press Test Results Negative AC Joint Compression Test Results Negative PT-OP-M Strength Start: 04/26/20 14:22 Freq: Status: Active Protocol: Document 04/26/20 13:45 DCW (Rec: 04/26/20 14:57 DCW [id number]) Shoulder Strength Shoulder Manual Muscle Testing Right Flexion 2+ Poor+ Abduction (C5) 2+ Poor+ External Rotation 3 Fair PT-OP-Q Treatments Start: 04/26/20 14:22 Freq: Status: Active Protocol: Document 06/05/20 13:50 MA (Rec: 06/05/20 14:31 MA [id number]) Cardio Equipment Upper Body Ergometer (UBE) Duration (Minutes) 6 RPM 65 Seat Position 11 Height 4 Therapeutic Exercises Supine Exercises PROM Supine Exercise Name Therapist assisted PROM ER/ABD /Flex Comments Remind pt to relax, take deep breaths Protraction Supine Exercise Name Serratus Punch Equipment Used 3# Reps/Minutes 2x15 IR/ER Supine Exercise Name 90/90 IR/ER Side right Equipment Used 3# Reps/Minutes 2 minutes Comments ER ROM increased over time Standing Exercises 1 Standing Exercise Name Wall Cirlces with Ball Equipment Used 3# ball Reps/Minutes 2x8 Comments Clockwise, counter-clockwise Other Exercises 2 Other Exercise Name Wall clocks Side bilateral Resistance Yellow Equipment Used T-band Comments 3/10 pain today 1 Other Exercise Name UE resisted side-stepping Side bilateral Resistance Yellow Equipment Used T-band Manual Therapy Treatment Soft Tissue Mobilization 1 Body Location Supraspinatus Mobilization Type Rolling,Sustained Pressure Intensity/Depth Moderate Body Position Hooklying Comments pt able to tolerate moderate pressure with between 3-5/10 pain PT-OP-T Assessment and Plan Start: 04/26/20 14:22 Freq: Status: Active Protocol: Document 06/05/20 13:50 MA (Rec: 06/05/20 14:31 MA [id number]) Physical Therapy Assessment Goals Three Impairment Pt experiences sleep disturbances due to shoulder pain Elevator Technician Goal (LTG) Pt to report 4 nights of sleep undisturbed by shoulder pain over the course of a one week period. LTG Duration 06/26/20 Two Impairment Pt struggles to don/doff shirt due to pain Elevator Technician Goal (LTG) Pt to improve pain-free ROM of R shoulder to 120? both flexion and abduction in order to improve functional mobility to don/doff shirt. LTG Duration 06/26/20 One Impairment Pt does not have an appropriate home exercise program Short Term Goal (STG) Pt to be independent and compliant with an appropriate HEP STG Duration 05/26/20 Assessment Summary Assessment Pt continues to show increased ROM both passively and actively after STM to supraspinatus tendon Physical Therapy Plan Frequency and Duration Frequency of Treatment 2x/Week Duration of Treatment 2 months Plan of Care Start Date 04/26/20 Plan of Care End Date 06/26/20 Therapeutic Interventions Therapeutic Interventions Home Exercise Program,Joint Mobilizations,Manual Therapy, Patient/Caregiver Education, Self-Care/Home Management,Soft Tissue Mobilization, Therapeutic Activities, Therapeutic Exercises Next Visit Focus/Plan Next Note Type Treatment Note Next Visit Plan Check ROM; P/AROM exercises, strengtehing ; work on ABD ROM and STM to supraspinatus
--- NOTE | 2020-06-10 14:28 | PT.OTN ---
Current Diagnoses Pain in right shoulder (06/10/20) Stiffness of right shoulder, not elsewhere classified (06/10/20) Adhesive capsulitis of right shoulder (06/10/20) Other shoulder lesions, right shoulder (06/10/20) Physical Therapy Treatment Note PT-OP-A Visit Information Start: 04/26/20 14:22 Freq: Status: Active Protocol: Document 06/10/20 13:45 DCW (Rec: 06/10/20 14:28 DCW [id number]) Out-Patient Physical Therapy Visit Information Visit Information Visit Type Treatment Note Visit Start Time 13:45 Visit Stop Time 14:30 Total Visit Minutes 45 Visit Number 12 Number of SHOTGUN SHELL ASSEMBLY MACHINE OPERATOR Visits 0 Evaluation Information Evaluation Date 04/26/20 PT-OP-B Current Condition Start: 04/26/20 14:22 Freq: Status: Active Protocol: Document 04/26/20 13:45 DCW (Rec: 04/26/20 14:57 DCW [id number]) Current Condition History of Current Condition Onset Date June, Current Complaints Shoulder pain, stiffness, loss of functional mobility History of Current Condition Pt is a 64 year old male with a 10 month history of right shoulder pain and stiffness. Pt reports he was working with Physical Therapy at a different clinic for shoulder tendonitis, and must have overdone something at one point, and started experiencing increased shoulder pain. Pt reports that in August of 2019, he had a Cortisone injection by his PCP , which helped a little bit for a very short time. Pt was then scheduled to be seen by Dr Singh, however this visit was unfortunately canceled due to Covid-19 shut-down. Pt was finally able to see Dr Singh in December, where he got a Prednisone pack, which helped a lot. Additionally, at this time, pt also underwent an MRI, which showed a partial- thickness tear of the supraspinatus tendon, among other findings. Five weeks ago , pt had a follow-up, and received a second Cortisone injection, which helped a lot more than the first. Pt notes that his shoulder is about 80% now than what it had been, admits that it used to feel miserable. Pt notes continued pain trying to lift his arm, but I don't do that much. Pain is still affecting his sleep, however less now than it had been previously. Pt notes that he struggles to don/doff his shirts due to pain and immobility in his shoulder. Prior Treatments and Tests Right shoulder MRI: IMPRESSION : 1. Small focal high-grade bursal surface partial- thickness tear of the posterior distal supraspinatus tendon with corresponding tendinopathy. 2. Moderate infraspinatus tendinopathy without significant bearing. 3. Severe degenerative changes of the acromioclavicular joint may be resulting in subacromial impingement and clinical correlation is recommended. 4. Fluid within the subacromial subdeltoid bursa is likely reactive to the partial-thickness supraspinatus tendon tear. Please correlate clinically to exclude bursitis. 5. Edema about the inferior glenohumeral ligament is suspicious for a ligamentous sprain, but may be seen in the setting of adhesive capsulitis. 6. Degenerative changes of the labrum without a displaced tear evident. 7. Mild tendinopathy involving intra-articular portion of the biceps tendon. 8. Possible bone contusion of the greater tuberosity of the humeral head. No fractures. Per: Vicente Baumann M.D. on Treatment Goals Patient/Caregiver Goals I want my shoulder to get back to the way it was. PT-OP-C Subjective Start: 04/26/20 14:22 Freq: Status: Active Protocol: Document 06/10/20 13:45 DCW (Rec: 06/10/20 14:28 DCW [id number]) OP-PT Subjective Patient Comments Patient Comments It's getting better. It still hurts, but I'm getting more motion. PT-OP-E Functional Tests Start: 04/26/20 14:22 Freq: Status: Active Protocol: Document 04/26/20 13:45 DCW (Rec: 04/26/20 14:57 DCW [id number]) Functional Tests Apley's Scratch Test Action 1- Left Posterior opposite shoulder Action 1- Right Anterior opposite shoulder Action 2- Left T1 Action 2- Right Right parietal bone Action 3- Left T8 Action 3- Right S1 PT-OP-F Manual Assessment Start: 04/26/20 14:22 Freq: Status: Active Protocol: Document 04/26/20 13:45 DCW (Rec: 04/26/20 14:57 DCW [id number]) Manual Assessments Joint Mobility Assessment Joint Mobility Assessment Stiffness throughout upper ROM with PROM PT-OP-K Range of Motion Start: 04/26/20 14:22 Freq: Status: Active Protocol: Document 04/26/20 13:45 DCW (Rec: 04/26/20 14:57 DCW [id number]) Shoulder Goniometric Range of Motion Shoulder Right Passive Testing Position Sitting Flexion 117 Abduction 90 External Rotation at 0 degrees Abduction 42 Right Active Testing Position Sitting Flexion 105 Extension 28 Abduction 86 External Rotation at 0 degrees Abduction 35 Internal Rotation Behind Back (text) S1 Left Shoulder ROM WFL Yes Shoulder ROM Limitations Shoulder ROM Limitations Soft Tissue Tightness,Muscle Weakness,Muscle Tone,Pain PT-OP-L Special Tests Start: 04/26/20 14:22 Freq: Status: Active Protocol: Document 04/26/20 13:45 DCW (Rec: 04/26/20 14:57 DCW [id number]) Special Tests Shoulder Special Tests Painful Arc Test Results Positive R Passive ER Rotator Cuff Test Results Positive R Lift-Off Rotator Cuff Test Results Positive R Alvarenga Mayank Impingement Test Results Positive R Belly Press Test Results Negative AC Joint Compression Test Results Negative PT-OP-M Strength Start: 04/26/20 14:22 Freq: Status: Active Protocol: Document 04/26/20 13:45 DCW (Rec: 04/26/20 14:57 DCW [id number]) Shoulder Strength Shoulder Manual Muscle Testing Right Flexion 2+ Poor+ Abduction (C5) 2+ Poor+ External Rotation 3 Fair PT-OP-Q Treatments Start: 04/26/20 14:22 Freq: Status: Active Protocol: Document 06/10/20 13:45 DCW (Rec: 06/10/20 14:28 DCW [id number]) Cardio Equipment Upper Body Ergometer (UBE) Duration (Minutes) 6 RPM 60 Seat Position 11 Height 4 Therapeutic Exercises Supine Exercises PROM Supine Exercise Name Therapist assisted PROM ER/ABD /Flex Comments Remind pt to relax, take deep breaths IR/ER Supine Exercise Name 90/90 IR/ER Side right Equipment Used 3.3# ball Reps/Minutes 2 minutes Comments ER ROM increased over time Standing Exercises 1 Standing Exercise Name Wall Cirlces with Ball Equipment Used 3# ball Reps/Minutes 2x8 Comments Clockwise, counter-clockwise Other Exercises 2 Other Exercise Name Wall clocks Side bilateral Resistance Yellow Equipment Used T-band 1 Other Exercise Name UE resisted side-stepping Side bilateral Resistance Yellow Equipment Used T-band Manual Therapy Treatment Soft Tissue Mobilization 1 Body Location Supraspinatus Mobilization Type Rolling,Sustained Pressure Intensity/Depth Moderate Body Position Hooklying Comments pt able to tolerate moderate pressure with between 3-5/10 pain Joint Mobilizations 1 Joint Scapulothoracic Direction Lateral Grade III PT-OP-T Assessment and Plan Start: 04/26/20 14:22 Freq: Status: Active Protocol: Document 06/10/20 13:45 DCW (Rec: 06/10/20 14:28 DCW [id number]) Physical Therapy Assessment Impairments Impairments Functional Activities, Functional Mobility,Pain,ROM, Soft Tissue Mobility,Strength, Tone Goals Three Impairment Pt experiences sleep disturbances due to shoulder pain Fdc Goal (LTG) Pt to report 4 nights of sleep undisturbed by shoulder pain over the course of a one week period. LTG Duration 06/26/20 Two Impairment Pt struggles to don/doff shirt due to pain Internal Control Manager Goal (LTG) Pt to improve pain-free ROM of R shoulder to 120? both flexion and abduction in order to improve functional mobility to don/doff shirt. LTG Duration 06/26/20 One Impairment Pt does not have an appropriate home exercise program Short Term Goal (STG) Pt to be independent and compliant with an appropriate HEP STG Duration 05/26/20 Assessment Summary Assessment Pt feeling a little more sore and fatigued after treatment today, but notes that it's good that it is getting a workout. Doing well with increased ROM. Physical Therapy Plan Frequency and Duration Frequency of Treatment 2x/Week Duration of Treatment 2 months Plan of Care Start Date 04/26/20 Plan of Care End Date 06/26/20 Therapeutic Interventions Therapeutic Interventions Home Exercise Program,Joint Mobilizations,Manual Therapy, Patient/Caregiver Education, Self-Care/Home Management,Soft Tissue Mobilization, Therapeutic Activities, Therapeutic Exercises Next Visit Focus/Plan Next Note Type Treatment Note Next Visit Plan Check ROM; P/AROM exercises, strengtehing ; work on ABD ROM and STM to supraspinatus
--- NOTE | 2020-06-14 16:02 | PT.OTN ---
Current Diagnoses Pain in right shoulder (06/14/20) Stiffness of right shoulder, not elsewhere classified (06/14/20) Adhesive capsulitis of right shoulder (06/14/20) Other shoulder lesions, right shoulder (06/14/20) Physical Therapy Treatment Note PT-OP-A Visit Information Start: 04/26/20 14:22 Freq: Status: Active Protocol: Document 06/14/20 15:16 DCW (Rec: 06/14/20 16:01 DCW [id number]) Out-Patient Physical Therapy Visit Information Visit Information Visit Type Treatment Note Visit Start Time 15:16 Visit Stop Time 16:00 Total Visit Minutes 44 Visit Number 13 Number of SIZE CUTTER Visits 0 Evaluation Information Evaluation Date 04/26/20 PT-OP-B Current Condition Start: 04/26/20 14:22 Freq: Status: Active Protocol: Document 04/26/20 13:45 DCW (Rec: 04/26/20 14:57 DCW [id number]) Current Condition History of Current Condition Onset Date June, Current Complaints Shoulder pain, stiffness, loss of functional mobility History of Current Condition Pt is a 64 year old male with a 10 month history of right shoulder pain and stiffness. Pt reports he was working with Physical Therapy at a different clinic for shoulder tendonitis, and must have overdone something at one point, and started experiencing increased shoulder pain. Pt reports that in August of 2019, he had a Cortisone injection by his PCP , which helped a little bit for a very short time. Pt was then scheduled to be seen by Dr Singh, however this visit was unfortunately canceled due to Covid-19 shut-down. Pt was finally able to see Dr Singh in December, where he got a Prednisone pack, which helped a lot. Additionally, at this time, pt also underwent an MRI, which showed a partial- thickness tear of the supraspinatus tendon, among other findings. Five weeks ago , pt had a follow-up, and received a second Cortisone injection, which helped a lot more than the first. Pt notes that his shoulder is about 80% now than what it had been, admits that it used to feel miserable. Pt notes continued pain trying to lift his arm, but I don't do that much. Pain is still affecting his sleep, however less now than it had been previously. Pt notes that he struggles to don/doff his shirts due to pain and immobility in his shoulder. Prior Treatments and Tests Right shoulder MRI: IMPRESSION : 1. Small focal high-grade bursal surface partial- thickness tear of the posterior distal supraspinatus tendon with corresponding tendinopathy. 2. Moderate infraspinatus tendinopathy without significant bearing. 3. Severe degenerative changes of the acromioclavicular joint may be resulting in subacromial impingement and clinical correlation is recommended. 4. Fluid within the subacromial subdeltoid bursa is likely reactive to the partial-thickness supraspinatus tendon tear. Please correlate clinically to exclude bursitis. 5. Edema about the inferior glenohumeral ligament is suspicious for a ligamentous sprain, but may be seen in the setting of adhesive capsulitis. 6. Degenerative changes of the labrum without a displaced tear evident. 7. Mild tendinopathy involving intra-articular portion of the biceps tendon. 8. Possible bone contusion of the greater tuberosity of the humeral head. No fractures. Per: Vicente Baumann M.D. on Treatment Goals Patient/Caregiver Goals I want my shoulder to get back to the way it was. PT-OP-C Subjective Start: 04/26/20 14:22 Freq: Status: Active Protocol: Document 06/14/20 15:16 DCW (Rec: 06/14/20 16:01 DCW [id number]) OP-PT Subjective Patient Comments Patient Comments It's pretty sore today. I was stretching at home, and I think I may have over-done it. PT-OP-E Functional Tests Start: 04/26/20 14:22 Freq: Status: Active Protocol: Document 04/26/20 13:45 DCW (Rec: 04/26/20 14:57 DCW [id number]) Functional Tests Apley's Scratch Test Action 1- Left Posterior opposite shoulder Action 1- Right Anterior opposite shoulder Action 2- Left T1 Action 2- Right Right parietal bone Action 3- Left T8 Action 3- Right S1 PT-OP-F Manual Assessment Start: 04/26/20 14:22 Freq: Status: Active Protocol: Document 04/26/20 13:45 DCW (Rec: 04/26/20 14:57 DCW [id number]) Manual Assessments Joint Mobility Assessment Joint Mobility Assessment Stiffness throughout upper ROM with PROM PT-OP-K Range of Motion Start: 04/26/20 14:22 Freq: Status: Active Protocol: Document 04/26/20 13:45 DCW (Rec: 04/26/20 14:57 CTW [id number]) Shoulder Goniometric Range of Motion Shoulder Right Passive Testing Position Sitting Flexion 117 Abduction 90 External Rotation at 0 degrees Abduction 42 Right Active Testing Position Sitting Flexion 105 Extension 28 Abduction 86 External Rotation at 0 degrees Abduction 35 Internal Rotation Behind Back (text) S1 Left Shoulder ROM WFL Yes Shoulder ROM Limitations Shoulder ROM Limitations Soft Tissue Tightness,Muscle Weakness,Muscle Tone,Pain PT-OP-L Special Tests Start: 04/26/20 14:22 Freq: Status: Active Protocol: Document 04/26/20 13:45 DCW (Rec: 04/26/20 14:57 CTW [id number]) Special Tests Shoulder Special Tests Painful Arc Test Results Positive R Passive ER Rotator Cuff Test Results Positive R Lift-Off Rotator Cuff Test Results Positive R Alvarenga Mayank Impingement Test Results Positive R Belly Press Test Results Negative AC Joint Compression Test Results Negative PT-OP-M Strength Start: 04/26/20 14:22 Freq: Status: Active Protocol: Document 04/26/20 13:45 DCW (Rec: 04/26/20 14:57 CTW [id number]) Shoulder Strength Shoulder Manual Muscle Testing Right Flexion 2+ Poor+ Abduction (C5) 2+ Poor+ External Rotation 3 Fair PT-OP-Q Treatments Start: 04/26/20 14:22 Freq: Status: Active Protocol: Document 06/14/20 15:16 DCW (Rec: 06/14/20 16:01 DCW [id number]) Therapeutic Exercises Supine Exercises PROM Supine Exercise Name Therapist assisted PROM ER/ABD /Flex Comments Remind pt to relax, take deep breaths Sitting Exercises 2 Sitting Exercise Name GH Pulleys - Flexion, Abduction Side bilateral Other Exercises 1 Other Exercise Name UE resisted side-stepping Side bilateral Resistance Yellow Equipment Used T-band Manual Therapy Treatment Soft Tissue Mobilization 1 Body Location Supraspinatus Mobilization Type Rolling,Sustained Pressure Intensity/Depth Moderate Body Position Hooklying Joint Mobilizations 1 Joint Scapulothoracic Direction Lateral Grade III PT-OP-T Assessment and Plan Start: 04/26/20 14:22 Freq: Status: Active Protocol: Document 06/14/20 15:16 DCW (Rec: 06/14/20 16:01 DCW [id number]) Physical Therapy Assessment Impairments Impairments Functional Activities, Functional Mobility,Pain,ROM, Soft Tissue Mobility,Strength, Tone Goals Three Impairment Pt experiences sleep disturbances due to shoulder pain Correction Goal (LTG) Pt to report 4 nights of sleep undisturbed by shoulder pain over the course of a one week period. LTG Duration 06/26/20 Two Impairment Pt struggles to don/doff shirt due to pain Flare Breaker Goal (LTG) Pt to improve pain-free ROM of R shoulder to 120? both flexion and abduction in order to improve functional mobility to don/doff shirt. LTG Duration 06/26/20 One Impairment Pt does not have an appropriate home exercise program Short Term Goal (STG) Pt to be independent and compliant with an appropriate HEP STG Duration 05/26/20 Assessment Summary Assessment Due to pt's increased soreness today, therapy session was fairly light and focused more on manual STM to help decrease tone and inflammation. PT advised to try to take it easy over the weekend and let his shoulder rest. Physical Therapy Plan Frequency and Duration Frequency of Treatment 2x/Week Duration of Treatment 2 months Plan of Care Start Date 04/26/20 Plan of Care End Date 06/26/20 Therapeutic Interventions Therapeutic Interventions Home Exercise Program,Joint Mobilizations,Manual Therapy, Patient/Caregiver Education, Self-Care/Home Management,Soft Tissue Mobilization, Therapeutic Activities, Therapeutic Exercises Next Visit Focus/Plan Next Note Type Treatment Note Next Visit Plan Check ROM; P/AROM exercises, strengtehing ; work on ABD ROM and STM to supraspinatus
--- NOTE | 2020-06-21 14:29 | PT.OTN ---
Current Diagnoses Pain in right shoulder (06/21/20) Stiffness of right shoulder, not elsewhere classified (06/21/20) Adhesive capsulitis of right shoulder (06/21/20) Other shoulder lesions, right shoulder (06/21/20) Physical Therapy Treatment Note PT-OP-A Visit Information Start: 04/26/20 14:22 Freq: Status: Active Protocol: Document 06/21/20 13:46 DCW (Rec: 06/21/20 14:29 DCW [id number]) Out-Patient Physical Therapy Visit Information Visit Information Visit Type Treatment Note Visit Start Time 13:46 Visit Stop Time 14:31 Total Visit Minutes 45 Visit Number 14 Number of WINDOW AND DOOR INSTALLER Visits 0 Evaluation Information Evaluation Date 04/26/20 PT-OP-B Current Condition Start: 04/26/20 14:22 Freq: Status: Active Protocol: Document 04/26/20 13:45 DCW (Rec: 04/26/20 14:57 DCW [id number]) Current Condition History of Current Condition Onset Date June, Current Complaints Shoulder pain, stiffness, loss of functional mobility History of Current Condition Pt is a 64 year old male with a 10 month history of right shoulder pain and stiffness. Pt reports he was working with Physical Therapy at a different clinic for shoulder tendonitis, and must have overdone something at one point, and started experiencing increased shoulder pain. Pt reports that in August of 2019, he had a Cortisone injection by his PCP , which helped a little bit for a very short time. Pt was then scheduled to be seen by Dr Singh, however this visit was unfortunately canceled due to Covid-19 shut-down. Pt was finally able to see Dr Singh in December, where he got a Prednisone pack, which helped a lot. Additionally, at this time, pt also underwent an MRI, which showed a partial- thickness tear of the supraspinatus tendon, among other findings. Five weeks ago , pt had a follow-up, and received a second Cortisone injection, which helped a lot more than the first. Pt notes that his shoulder is about 80% now than what it had been, admits that it used to feel miserable. Pt notes continued pain trying to lift his arm, but I don't do that much. Pain is still affecting his sleep, however less now than it had been previously. Pt notes that he struggles to don/doff his shirts due to pain and immobility in his shoulder. Prior Treatments and Tests Right shoulder MRI: IMPRESSION : 1. Small focal high-grade bursal surface partial- thickness tear of the posterior distal supraspinatus tendon with corresponding tendinopathy. 2. Moderate infraspinatus tendinopathy without significant bearing. 3. Severe degenerative changes of the acromioclavicular joint may be resulting in subacromial impingement and clinical correlation is recommended. 4. Fluid within the subacromial subdeltoid bursa is likely reactive to the partial-thickness supraspinatus tendon tear. Please correlate clinically to exclude bursitis. 5. Edema about the inferior glenohumeral ligament is suspicious for a ligamentous sprain, but may be seen in the setting of adhesive capsulitis. 6. Degenerative changes of the labrum without a displaced tear evident. 7. Mild tendinopathy involving intra-articular portion of the biceps tendon. 8. Possible bone contusion of the greater tuberosity of the humeral head. No fractures. Per: Vicente Baumann M.D. on Treatment Goals Patient/Caregiver Goals I want my shoulder to get back to the way it was. PT-OP-C Subjective Start: 04/26/20 14:22 Freq: Status: Active Protocol: Document 06/21/20 13:46 DCW (Rec: 06/21/20 14:29 DCW [id number]) OP-PT Subjective Patient Comments Patient Comments Pt feels like he has regressed . Still very tender, barely able to move. Has a follow up with Dr Singh on Wednesday, he is hopeful he gets more information about how to procede from here. PT-OP-E Functional Tests Start: 04/26/20 14:22 Freq: Status: Active Protocol: Document 06/21/20 13:46 DCW (Rec: 06/21/20 14:00 DCW [id number]) Functional Tests Apley's Scratch Test Action 1- Left Posterior opposite shoulder Action 1- Right Anterior opposite shoulder Action 2- Left T1 Action 2- Right C3 Action 3- Left T8 Action 3- Right T2 PT-OP-F Manual Assessment Start: 04/26/20 14:22 Freq: Status: Active Protocol: Document 06/21/20 13:46 DCW (Rec: 06/21/20 14:00 DCW [id number]) Manual Assessments Joint Mobility Assessment Joint Mobility Assessment Stiffness throughout end-range ROM with PROM PT-OP-K Range of Motion Start: 04/26/20 14:22 Freq: Status: Active Protocol: Document 06/21/20 13:46 DCW (Rec: 06/21/20 14:00 DCW [id number]) Shoulder Goniometric Range of Motion Shoulder Right Passive Testing Position Sitting Flexion 114 Abduction 90 External Rotation at 0 degrees Abduction 38 Right Active Testing Position Sitting Flexion 119 Extension 30 Abduction 85 External Rotation at 0 degrees Abduction 54 Internal Rotation Behind Back (text) T2 Shoulder ROM Limitations Shoulder ROM Limitations Soft Tissue Tightness,Muscle Weakness,Muscle Tone,Pain PT-OP-L Special Tests Start: 04/26/20 14:22 Freq: Status: Active Protocol: Document 06/21/20 13:46 DCW (Rec: 06/21/20 14:00 DCW [id number]) Special Tests Shoulder Special Tests Painful Arc Test Results Positive R Passive ER Rotator Cuff Test Results Positive R Lift-Off Rotator Cuff Test Results Positive R Alvarenga Mayank Impingement Test Results Positive R PT-OP-M Strength Start: 04/26/20 14:22 Freq: Status: Active Protocol: Document 06/21/20 13:46 DCW (Rec: 06/21/20 14:00 DCW [id number]) Shoulder Strength Shoulder Manual Muscle Testing Right Flexion 2+ Poor+ Abduction (C5) 2+ Poor+ External Rotation 3 Fair PT-OP-Q Treatments Start: 04/26/20 14:22 Freq: Status: Active Protocol: Document 06/21/20 13:46 DCW (Rec: 06/21/20 14:29 DCW [id number]) Manual Therapy Treatment Soft Tissue Mobilization 1 Body Location Supraspinatus Mobilization Type Rolling,Sustained Pressure Intensity/Depth Moderate Body Position Hooklying Joint Mobilizations 1 Joint Scapulothoracic Direction Lateral Grade III PT-OP-R Modalities Start: 04/26/20 14:22 Freq: Status: Active Protocol: Document 06/21/20 13:46 DCW (Rec: 06/21/20 14:29 DCW [id number]) Electric Stimulation Electric Stimulation Interferential Current (IFC) Body Location R shoulder Duration (Minutes) 15 Cycle Continuous Patient Position Supine PT-OP-T Assessment and Plan Start: 04/26/20 14:22 Freq: Status: Active Protocol: Document 06/21/20 13:46 DCW (Rec: 06/21/20 14:29 DCW [id number]) Physical Therapy Assessment Impairments Impairments Functional Activities, Functional Mobility,Pain,ROM, Soft Tissue Mobility,Strength, Tone Goals Three Impairment Pt experiences sleep disturbances due to shoulder pain Care Home Goal (LTG) Pt to report 4 nights of sleep undisturbed by shoulder pain over the course of a one week period. LTG Duration 06/26/20 Two Impairment Pt struggles to don/doff shirt due to pain Teacher Of The Hearing Impaired Goal (LTG) Pt to improve pain-free ROM of R shoulder to 120? both flexion and abduction in order to improve functional mobility to don/doff shirt. LTG Duration 06/26/20 One Impairment Pt does not have an appropriate home exercise program Short Term Goal (STG) Pt to be independent and compliant with an appropriate HEP STG Duration 05/26/20 Assessment Summary Assessment Pt has shown good improvement since his initial eval, like improved ROM, but has backtracked significantly since two weeks ago. Continued therapy should help assist to help calm down his current flare-up as well as continue to improvement ROM and mobility. Pt at the moment not sure about continuing skilled PT, would like to wait until after his appointment with Dr Singh in three days, and decide what to do from there. Physical Therapy Plan Frequency and Duration Frequency of Treatment 2x/Week Duration of Treatment 2 months Plan of Care Start Date 04/26/20 Plan of Care End Date 06/26/20 Therapeutic Interventions Therapeutic Interventions Home Exercise Program,Joint Mobilizations,Manual Therapy, Patient/Caregiver Education, Self-Care/Home Management,Soft Tissue Mobilization, Therapeutic Activities, Therapeutic Exercises Next Visit Focus/Plan Next Note Type Treatment Note Next Visit Plan P/AROM exercises, strengthening ; work on ABD ROM and STM to supraspinatus
--- NOTE | 2020-06-21 14:30 | PT.OPPOC ---
Physical, Occupational & Speech Therapy At [facility] Current Diagnoses Pain in right shoulder (06/21/20) Stiffness of right shoulder, not elsewhere classified (06/21/20) Adhesive capsulitis of right shoulder (06/21/20) Other shoulder lesions, right shoulder (06/21/20) Visit Care Team Role Provider Type Luis Acevedo PA-C Primary Care Provider Non-Staff Specialty: Family Practice Address: [address] [place] [address], [address], [place], [address] Email: Family Provider Specialty: Address: Phone: Fax: Email: Valente Singh DO Attending Provider Non-Staff Referring Provider Specialty: Orthopedics Address: [facility] [place], [address] Email: Plan Of Care PT-OP-T Assessment and Plan Start: 04/26/20 14:22 Freq: Status: Active Protocol: Document 06/21/20 13:46 DCW (Rec: 06/21/20 14:29 DCW [id number]) Physical Therapy Assessment Impairments Impairments Functional Activities, Functional Mobility,Pain,ROM, Soft Tissue Mobility,Strength, Tone Goals Three Impairment Pt experiences sleep disturbances due to shoulder pain Windows Server Support Technician Goal (LTG) Pt to report 4 nights of sleep undisturbed by shoulder pain over the course of a one week period. LTG Duration 06/26/20 Two Impairment Pt struggles to don/doff shirt due to pain Windows Server Support Technician Goal (LTG) Pt to improve pain-free ROM of R shoulder to 120? both flexion and abduction in order to improve functional mobility to don/doff shirt. LTG Duration 06/26/20 One Impairment Pt does not have an appropriate home exercise program Short Term Goal (STG) Pt to be independent and compliant with an appropriate HEP STG Duration 05/26/20 Assessment Summary Assessment Pt has shown good improvement since his initial eval, like improved ROM, but has backtracked significantly since two weeks ago. Continued therapy should help assist to help calm down his current flare-up as well as continue to improvem ROM and mobility. Pt at the moment not sure about continuing skilled PT, would like to wait until after his appointment with Dr Singh in three days, and decide what to do from there. Physical Therapy Plan Frequency and Duration Frequency of Treatment 2x/Week Duration of Treatment 2 months Plan of Care Start Date 04/26/20 Plan of Care End Date 06/26/20 Therapeutic Interventions Therapeutic Interventions Home Exercise Program,Joint Mobilizations,Manual Therapy, Patient/Caregiver Education, Self-Care/Home Management,Soft Tissue Mobilization, Therapeutic Activities, Therapeutic Exercises Next Visit Focus/Plan Next Note Type Treatment Note Next Visit Plan P/AROM exercises, strengtehing ; work on ABD ROM and STM to supraspinatus Plan of Care Dates Plan of Care Start Date 04/26/20 Plan of Care End Date 06/26/20 Electronically Signed by: Irving Iglesias, PT 06/21/20 [id number] Please Sign and Return: I have reviewed this Plan of Care and certify that the skilled therapy services above are required to meet the patient?s needs. Physician Signature Date Printed Name and Credentials Clinical Instructor Signature Printed Name and Credentials
--- NOTE | 2020-07-10 16:23 | PT.OTN ---
Current Diagnoses Pain in right shoulder (07/10/20) Stiffness of right shoulder, not elsewhere classified (07/10/20) Adhesive capsulitis of right shoulder (07/10/20) Other shoulder lesions, right shoulder (07/10/20) Physical Therapy Treatment Note PT-OP-A Visit Information Start: 04/26/20 14:22 Freq: Status: Active Protocol: Document 07/10/20 15:22 MA (Rec: 07/10/20 16:23 MA [id number]) Out-Patient Physical Therapy Visit Information Visit Information Visit Type Treatment Note Visit Start Time 15:20 Visit Stop Time 16:03 Total Visit Minutes 43 Visit Number 15 Number of AGILE PROJECT MANAGER Visits 1 PT-OP-B Current Condition Start: 04/26/20 14:22 Freq: Status: Active Protocol: Document 04/26/20 13:45 DCW (Rec: 04/26/20 14:57 DCW [id number]) Current Condition History of Current Condition Onset Date June, Current Complaints Shoulder pain, stiffness, loss of functional mobility History of Current Condition Pt is a 64 year old male with a 10 month history of right shoulder pain and stiffness. Pt reports he was working with Physical Therapy at a different clinic for shoulder tendonitis, and must have overdone something at one point, and started experiencing increased shoulder pain. Pt reports that in August of 2019, he had a Cortisone injection by his PCP , which helped a little bit for a very short time. Pt was then scheduled to be seen by Dr Singh, however this visit was unfortunately canceled due to Covid-19 shut-down. Pt was finally able to see Dr Singh in December, where he got a Prednisone pack, which helped a lot. Additionally, at this time, pt also underwent an MRI, which showed a partial- thickness tear of the supraspinatus tendon, among other findings. Five weeks ago , pt had a follow-up, and received a second Cortisone injection, which helped a lot more than the first. Pt notes that his shoulder is about 80% now than what it had been, admits that it used to feel miserable. Pt notes continued pain trying to lift his arm, but I don't do that much. Pain is still affecting his sleep, however less now than it had been previously. Pt notes that he struggles to don/doff his shirts due to pain and immobility in his shoulder. Prior Treatments and Tests Right shoulder MRI: IMPRESSION : 1. Small focal high-grade bursal surface partial- thickness tear of the posterior distal supraspinatus tendon with corresponding tendinopathy. 2. Moderate infraspinatus tendinopathy without significant bearing. 3. Severe degenerative changes of the acromioclavicular joint may be resulting in subacromial impingement and clinical correlation is recommended. 4. Fluid within the subacromial subdeltoid bursa is likely reactive to the partial-thickness supraspinatus tendon tear. Please correlate clinically to exclude bursitis. 5. Edema about the inferior glenohumeral ligament is suspicious for a ligamentous sprain, but may be seen in the setting of adhesive capsulitis. 6. Degenerative changes of the labrum without a displaced tear evident. 7. Mild tendinopathy involving intra-articular portion of the biceps tendon. 8. Possible bone contusion of the greater tuberosity of the humeral head. No fractures. Per: Vicente Baumann M.D. on Treatment Goals Patient/Caregiver Goals I want my shoulder to get back to the way it was. PT-OP-C Subjective Start: 04/26/20 14:22 Freq: Status: Active Protocol: Document 07/10/20 15:22 MA (Rec: 07/10/20 16:23 MA [id number]) OP-PT Subjective Patient Comments Patient Comments Pt saw who gave him another cortizone shot two weeks ago into supraspinatus tendon. says to give it until the beginning of the new year before assessing whether they need to go in and clean it up . PT-OP-E Functional Tests Start: 04/26/20 14:22 Freq: Status: Active Protocol: Document 06/21/20 13:46 DCW (Rec: 06/21/20 14:00 DCW [id number]) Functional Tests Apley's Scratch Test Action 1- Left Posterior opposite shoulder Action 1- Right Anterior opposite shoulder Action 2- Left T1 Action 2- Right C3 Action 3- Left T8 Action 3- Right T2 PT-OP-F Manual Assessment Start: 04/26/20 14:22 Freq: Status: Active Protocol: Document 06/21/20 13:46 DCW (Rec: 06/21/20 14:00 DCW [id number]) Manual Assessments Joint Mobility Assessment Joint Mobility Assessment Stiffness throughout end-range ROM with PROM PT-OP-K Range of Motion Start: 04/26/20 14:22 Freq: Status: Active Protocol: Document 06/21/20 13:46 DCW (Rec: 06/21/20 14:00 DCW [id number]) Shoulder Goniometric Range of Motion Shoulder Right Passive Testing Position Sitting Flexion 114 Abduction 90 External Rotation at 0 degrees Abduction 38 Right Active Testing Position Sitting Flexion 119 Extension 30 Abduction 85 External Rotation at 0 degrees Abduction 54 Internal Rotation Behind Back (text) T2 Shoulder ROM Limitations Shoulder ROM Limitations Soft Tissue Tightness,Muscle Weakness,Muscle Tone,Pain PT-OP-L Special Tests Start: 04/26/20 14:22 Freq: Status: Active Protocol: Document 06/21/20 13:46 DCW (Rec: 06/21/20 14:00 DCW [id number]) Special Tests Shoulder Special Tests Painful Arc Test Results Positive R Passive ER Rotator Cuff Test Results Positive R Lift-Off Rotator Cuff Test Results Positive R Alvarenga Mayank Impingement Test Results Positive R PT-OP-M Strength Start: 04/26/20 14:22 Freq: Status: Active Protocol: Document 06/21/20 13:46 DCW (Rec: 06/21/20 14:00 DCW [id number]) Shoulder Strength Shoulder Manual Muscle Testing Right Flexion 2+ Poor+ Abduction (C5) 2+ Poor+ External Rotation 3 Fair PT-OP-Q Treatments Start: 04/26/20 14:22 Freq: Status: Active Protocol: Document 07/10/20 15:22 MA (Rec: 07/10/20 16:23 MA [id number]) Therapeutic Exercises Supine Exercises PROM Supine Exercise Name Therapist assisted PROM ER/ABD /Flex Comments Remind pt to relax, take deep breaths Protraction Supine Exercise Name Serratus Punch Side right Equipment Used 3# Reps/Minutes 2x15 IR/ER Supine Exercise Name elbow by side, 80 degrees abduction Side right Reps/Minutes 2 minutes Comments no resistance Sitting Exercises 2 Sitting Exercise Name GH Pulleys - Flexion, Abduction Side bilateral Comments Decreased ROM ABD Standing Exercises IR/ER Side right Reps/Minutes x10 Comments no resistance- added to HEP for getting back into movement Manual Therapy Treatment Soft Tissue Mobilization Parascapular mms Body Location R Mobilization Type Sustained Pressure,Trigger Point Release Intensity/Depth Moderate Body Position Sidelying 1 Body Location Supraspinatus Mobilization Type Rolling,Sustained Pressure Intensity/Depth Moderate Body Position Hooklying PT-OP-R Modalities Start: 04/26/20 14:22 Freq: Status: Active Protocol: Document 06/21/20 13:46 DCW (Rec: 06/21/20 14:29 DCW [id number]) Electric Stimulation Electric Stimulation Interferential Current (IFC) Body Location R shoulder Duration (Minutes) 15 Cycle Continuous Patient Position Supine PT-OP-T Assessment and Plan Start: 04/26/20 14:22 Freq: Status: Active Protocol: Document 07/10/20 15:22 MA (Rec: 07/10/20 16:23 MA [id number]) Physical Therapy Assessment Goals Three Impairment Pt experiences sleep disturbances due to shoulder pain Signal Intelligence/Electronic Warfare Goal (LTG) Pt to report 4 nights of sleep undisturbed by shoulder pain over the course of a one week period. LTG Duration 06/26/20 Two Impairment Pt struggles to don/doff shirt due to pain Care Home Goal (LTG) Pt to improve pain-free ROM of R shoulder to 120? both flexion and abduction in order to improve functional mobility to don/doff shirt. LTG Duration 06/26/20 One Impairment Pt does not have an appropriate home exercise program Short Term Goal (STG) Pt to be independent and compliant with an appropriate HEP STG Duration 05/26/20 Assessment Summary Assessment Pt has not been to therapy in two weeks due to wanting to take a break after seeing dr and getting shot. Pt has decreased ROM in both shd flex and ABD compared to previous sessions. After flexion with grady, pt able to achieve near normal ROM on R but unable to achieve 90 degrees of ABD with grady stating he had 3/10 pain along supraspinatus tendon. After STM and passive stretching, pt was able to complete 90 degrees ABD. Pt admits he has not done any stretching or exercises on R shd since last visit which has led to the decreased ROM. Reminded pt he may be sore after today's tx. Pt would continue to benefit from PT for increased ROM and decreased pain Physical Therapy Plan Frequency and Duration Frequency of Treatment 2x/Week Duration of Treatment 2 months Plan of Care Start Date 04/26/20 Plan of Care End Date 06/26/20 Therapeutic Interventions Therapeutic Interventions Home Exercise Program,Joint Mobilizations,Manual Therapy, Patient/Caregiver Education, Self-Care/Home Management,Soft Tissue Mobilization, Therapeutic Activities, Therapeutic Exercises Next Visit Focus/Plan Next Note Type Treatment Note Next Visit Plan Ease back into P/AROM exercises, shd strengthening exercises and STM to supraspinatus
--- NOTE | 2020-07-17 16:00 | PT.OTN ---
Current Diagnoses Pain in right shoulder (07/17/20) Stiffness of right shoulder, not elsewhere classified (07/17/20) Adhesive capsulitis of right shoulder (07/17/20) Other shoulder lesions, right shoulder (07/17/20) Physical Therapy Treatment Note PT-OP-A Visit Information Start: 04/26/20 14:22 Freq: Status: Active Protocol: Document 07/17/20 16:57 MA (Rec: 07/17/20 17:11 MA [email or web address]) Out-Patient Physical Therapy Visit Information Visit Information Visit Type Treatment Note Visit Start Time 15:16 Visit Stop Time 15:57 Total Visit Minutes 41 Visit Number 16 Number of RESPIRATORY CARE SPECIALIST Visits 2 PT-OP-B Current Condition Start: 04/26/20 14:22 Freq: Status: Active Protocol: Document 04/26/20 13:45 DCW (Rec: 04/26/20 14:57 DCW [id number]) Current Condition History of Current Condition Onset Date June, Current Complaints Shoulder pain, stiffness, loss of functional mobility History of Current Condition Pt is a 64 year old male with a 10 month history of right shoulder pain and stiffness. Pt reports he was working with Physical Therapy at a different clinic for shoulder tendonitis, and must have overdone something at one point, and started experiencing increased shoulder pain. Pt reports that in August of 2019, he had a Cortisone injection by his PCP , which helped a little bit for a very short time. Pt was then scheduled to be seen by Dr Singh, however this visit was unfortunately canceled due to Covid-19 shut-down. Pt was finally able to see Dr Singh in December, where he got a Prednisone pack, which helped a lot. Additionally, at this time, pt also underwent an MRI, which showed a partial- thickness tear of the supraspinatus tendon, among other findings. Five weeks ago , pt had a follow-up, and received a second Cortisone injection, which helped a lot more than the first. Pt notes that his shoulder is about 80% now than what it had been, admits that it used to feel miserable. Pt notes continued pain trying to lift his arm, but I don't do that much. Pain is still affecting his sleep, however less now than it had been previously. Pt notes that he struggles to don/doff his shirts due to pain and immobility in his shoulder. Prior Treatments and Tests Right shoulder MRI: IMPRESSION : 1. Small focal high-grade bursal surface partial- thickness tear of the posterior distal supraspinatus tendon with corresponding tendinopathy. 2. Moderate infraspinatus tendinopathy without significant bearing. 3. Severe degenerative changes of the acromioclavicular joint may be resulting in subacromial impingement and clinical correlation is recommended. 4. Fluid within the subacromial subdeltoid bursa is likely reactive to the partial-thickness supraspinatus tendon tear. Please correlate clinically to exclude bursitis. 5. Edema about the inferior glenohumeral ligament is suspicious for a ligamentous sprain, but may be seen in the setting of adhesive capsulitis. 6. Degenerative changes of the labrum without a displaced tear evident. 7. Mild tendinopathy involving intra-articular portion of the biceps tendon. 8. Possible bone contusion of the greater tuberosity of the humeral head. No fractures. Per: Vicente Baumann M.D. on Treatment Goals Patient/Caregiver Goals I want my shoulder to get back to the way it was. PT-OP-C Subjective Start: 04/26/20 14:22 Freq: Status: Active Protocol: Document 07/17/20 16:57 MA (Rec: 07/17/20 17:11 MA [email or web address]) OP-PT Subjective Patient Comments Patient Comments Pt was sore that night after last session. The next day pt had increased shd pain, stating it felt the same as the usual pain. Pt thinks he is now willing to try surgery in the new year. PT-OP-E Functional Tests Start: 04/26/20 14:22 Freq: Status: Active Protocol: Document 06/21/20 13:46 DCW (Rec: 06/21/20 14:00 DCW [id number]) Functional Tests Apley's Scratch Test Action 1- Left Posterior opposite shoulder Action 1- Right Anterior opposite shoulder Action 2- Left T1 Action 2- Right C3 Action 3- Left T8 Action 3- Right T2 PT-OP-F Manual Assessment Start: 04/26/20 14:22 Freq: Status: Active Protocol: Document 06/21/20 13:46 DCW (Rec: 06/21/20 14:00 DCW [id number]) Manual Assessments Joint Mobility Assessment Joint Mobility Assessment Stiffness throughout end-range ROM with PROM PT-OP-K Range of Motion Start: 04/26/20 14:22 Freq: Status: Active Protocol: Document 06/21/20 13:46 DCW (Rec: 06/21/20 14:00 DCW [id number]) Shoulder Goniometric Range of Motion Shoulder Right Passive Testing Position Sitting Flexion 114 Abduction 90 External Rotation at 0 degrees Abduction 38 Right Active Testing Position Sitting Flexion 119 Extension 30 Abduction 85 External Rotation at 0 degrees Abduction 54 Internal Rotation Behind Back (text) T2 Shoulder ROM Limitations Shoulder ROM Limitations Soft Tissue Tightness,Muscle Weakness,Muscle Tone,Pain PT-OP-L Special Tests Start: 04/26/20 14:22 Freq: Status: Active Protocol: Document 06/21/20 13:46 DCW (Rec: 06/21/20 14:00 DCW [id number]) Special Tests Shoulder Special Tests Painful Arc Test Results Positive R Passive ER Rotator Cuff Test Results Positive R Lift-Off Rotator Cuff Test Results Positive R Alvarenga Mayank Impingement Test Results Positive R PT-OP-M Strength Start: 04/26/20 14:22 Freq: Status: Active Protocol: Document 06/21/20 13:46 DCW (Rec: 06/21/20 14:00 DCW [id number]) Shoulder Strength Shoulder Manual Muscle Testing Right Flexion 2+ Poor+ Abduction (C5) 2+ Poor+ External Rotation 3 Fair PT-OP-Q Treatments Start: 04/26/20 14:22 Freq: Status: Active Protocol: Document 07/17/20 16:57 MA (Rec: 07/17/20 17:11 MA [email or web address]) Cardio Equipment Upper Body Ergometer (UBE) Duration (Minutes) 6 RPM 65 Seat Position 11 Other 3 minutes fwd/bkwd Therapeutic Exercises Supine Exercises Protraction Supine Exercise Name Serratus Punch Side right Equipment Used 3# Reps/Minutes 2x15 Standing Exercises Doorway pec stretch Side bilateral Reps/Minutes 60 sec Comments could only get right arm up to 80 degrees abd Extension Standing Exercise Name Lat pull down Side bilateral Equipment Used TB#2 Reps/Minutes 2x10 IR/ER Standing Exercise Name IR only Side bilateral Reps/Minutes 2x10 Manual Therapy Treatment Soft Tissue Mobilization pecs Body Location R Mobilization Type Sustained Pressure,Trigger Point Release Intensity/Depth Moderate Body Position Hooklying 1 Body Location Supraspinatus Mobilization Type Rolling,Sustained Pressure Intensity/Depth Moderate Body Position Hooklying Comments increased tightness over R supraspinatus tendon today PT-OP-R Modalities Start: 04/26/20 14:22 Freq: Status: Active Protocol: Document 07/17/20 17:11 MA (Rec: 07/17/20 17:12 MA [email or web address]) Hot Pack/Cold Pack Treatment Ice Massage Location R supraspinatus tendon Patient Position Hooklying Treatment Duration (minutes) 5 Patient Tolerance Good PT-OP-T Assessment and Plan Start: 04/26/20 14:22 Freq: Status: Active Protocol: Document 07/17/20 16:57 MA (Rec: 07/17/20 17:11 MA [email or web address]) Physical Therapy Assessment Goals Three Impairment Pt experiences sleep disturbances due to shoulder pain Fdc Goal (LTG) Pt to report 4 nights of sleep undisturbed by shoulder pain over the course of a one week period. LTG Duration 06/26/20 Two Impairment Pt struggles to don/doff shirt due to pain Time Study Technician Goal (LTG) Pt to improve pain-free ROM of R shoulder to 120? both flexion and abduction in order to improve functional mobility to don/doff shirt. LTG Duration 06/26/20 One Impairment Pt does not have an appropriate home exercise program Short Term Goal (STG) Pt to be independent and compliant with an appropriate HEP STG Duration 05/26/20 Assessment Summary Assessment Pt has increased pain in shd flexion and abduction today. Pt is able to complete 165 degrees flexion and 80 degrees of abduction. Pt is willing to try surgery now that he feels he is digressing in therapy. Pt has 4/10 pain in R shd during neutral ER today despite having no pain previous week. Had no pain during shd extension and retraction exercises with band . Ended session with ice massage. Spoke with therapist about d/c from therapy and proceeding with sx. Physical Therapy Plan Frequency and Duration Frequency of Treatment 2x/Week Duration of Treatment 2 months Plan of Care Start Date 04/26/20 Plan of Care End Date 06/26/20 Therapeutic Interventions Therapeutic Interventions Home Exercise Program,Joint Mobilizations,Manual Therapy, Patient/Caregiver Education, Self-Care/Home Management,Soft Tissue Mobilization, Therapeutic Activities, Therapeutic Exercises Next Visit Focus/Plan Next Note Type Treatment Note Next Visit Plan Discuss d/c from therapy and proceeding with sx. Ease back into P/AROM exercises, shd strengthening exercises and STM to supraspinatus
--- NOTE | 2020-07-22 12:59 | PT.OTN ---
Current Diagnoses Pain in right shoulder (07/22/20) Stiffness of right shoulder, not elsewhere classified (07/22/20) Adhesive capsulitis of right shoulder (07/22/20) Other shoulder lesions, right shoulder (07/22/20) Physical Therapy Treatment Note PT-OP-A Visit Information Start: 04/26/20 14:22 Freq: Status: Active Protocol: Document 07/22/20 12:07 MA (Rec: 07/22/20 12:59 MA [id number]) Out-Patient Physical Therapy Visit Information Visit Information Visit Type Treatment Note Visit Start Time 12:00 Visit Stop Time 12:48 Total Visit Minutes 48 Visit Number 17 Number of WHARF LABORER Visits 3 PT-OP-B Current Condition Start: 04/26/20 14:22 Freq: Status: Active Protocol: Document 04/26/20 13:45 DCW (Rec: 04/26/20 14:57 DCW [id number]) Current Condition History of Current Condition Onset Date June, Current Complaints Shoulder pain, stiffness, loss of functional mobility History of Current Condition Pt is a 64 year old male with a 10 month history of right shoulder pain and stiffness. Pt reports he was working with Physical Therapy at a different clinic for shoulder tendonitis, and must have overdone something at one point, and started experiencing increased shoulder pain. Pt reports that in August of 2019, he had a Cortisone injection by his PCP , which helped a little bit for a very short time. Pt was then scheduled to be seen by Dr Singh, however this visit was unfortunately canceled due to Covid-19 shut-down. Pt was finally able to see Dr Singh in December, where he got a Prednisone pack, which helped a lot. Additionally, at this time, pt also underwent an MRI, which showed a partial- thickness tear of the supraspinatus tendon, among other findings. Five weeks ago , pt had a follow-up, and received a second Cortisone injection, which helped a lot more than the first. Pt notes that his shoulder is about 80% now than what it had been, admits that it used to feel miserable. Pt notes continued pain trying to lift his arm, but I don't do that much. Pain is still affecting his sleep, however less now than it had been previously. Pt notes that he struggles to don/doff his shirts due to pain and immobility in his shoulder. Prior Treatments and Tests Right shoulder MRI: IMPRESSION : 1. Small focal high-grade bursal surface partial- thickness tear of the posterior distal supraspinatus tendon with corresponding tendinopathy. 2. Moderate infraspinatus tendinopathy without significant bearing. 3. Severe degenerative changes of the acromioclavicular joint may be resulting in subacromial impingement and clinical correlation is recommended. 4. Fluid within the subacromial subdeltoid bursa is likely reactive to the partial-thickness supraspinatus tendon tear. Please correlate clinically to exclude bursitis. 5. Edema about the inferior glenohumeral ligament is suspicious for a ligamentous sprain, but may be seen in the setting of adhesive capsulitis. 6. Degenerative changes of the labrum without a displaced tear evident. 7. Mild tendinopathy involving intra-articular portion of the biceps tendon. 8. Possible bone contusion of the greater tuberosity of the humeral head. No fractures. Per: Vicente Baumann M.D. on Treatment Goals Patient/Caregiver Goals I want my shoulder to get back to the way it was. PT-OP-C Subjective Start: 04/26/20 14:22 Freq: Status: Active Protocol: Document 07/22/20 12:07 MA (Rec: 07/22/20 12:59 MA [id number]) OP-PT Subjective Patient Comments Patient Comments Pt arrived stating his shd felt a little better after last session. He has been massaging shd himself but feels like there is a knot he can't get rid of. PT-OP-E Functional Tests Start: 04/26/20 14:22 Freq: Status: Active Protocol: Document 06/21/20 13:46 DCW (Rec: 06/21/20 14:00 DCW [id number]) Functional Tests Apley's Scratch Test Action 1- Left Posterior opposite shoulder Action 1- Right Anterior opposite shoulder Action 2- Left T1 Action 2- Right C3 Action 3- Left T8 Action 3- Right T2 PT-OP-F Manual Assessment Start: 04/26/20 14:22 Freq: Status: Active Protocol: Document 06/21/20 13:46 DCW (Rec: 06/21/20 14:00 DCW [id number]) Manual Assessments Joint Mobility Assessment Joint Mobility Assessment Stiffness throughout end-range ROM with PROM PT-OP-K Range of Motion Start: 04/26/20 14:22 Freq: Status: Active Protocol: Document 06/21/20 13:46 DCW (Rec: 06/21/20 14:00 DCW [id number]) Shoulder Goniometric Range of Motion Shoulder Right Passive Testing Position Sitting Flexion 114 Abduction 90 External Rotation at 0 degrees Abduction 38 Right Active Testing Position Sitting Flexion 119 Extension 30 Abduction 85 External Rotation at 0 degrees Abduction 54 Internal Rotation Behind Back (text) T2 Shoulder ROM Limitations Shoulder ROM Limitations Soft Tissue Tightness,Muscle Weakness,Muscle Tone,Pain PT-OP-L Special Tests Start: 04/26/20 14:22 Freq: Status: Active Protocol: Document 06/21/20 13:46 DCW (Rec: 06/21/20 14:00 DCW [id number]) Special Tests Shoulder Special Tests Painful Arc Test Results Positive R Passive ER Rotator Cuff Test Results Positive R Lift-Off Rotator Cuff Test Results Positive R Alvarenga Mayank Impingement Test Results Positive R PT-OP-M Strength Start: 04/26/20 14:22 Freq: Status: Active Protocol: Document 06/21/20 13:46 DCW (Rec: 06/21/20 14:00 DCW [id number]) Shoulder Strength Shoulder Manual Muscle Testing Right Flexion 2+ Poor+ Abduction (C5) 2+ Poor+ External Rotation 3 Fair PT-OP-Q Treatments Start: 04/26/20 14:22 Freq: Status: Active Protocol: Document 07/22/20 12:07 MA (Rec: 07/22/20 12:59 MA [id number]) Cardio Equipment Upper Body Ergometer (UBE) Duration (Minutes) 6 RPM 70 Seat Position 11 Other 3 minutes fwd/bkwd Therapeutic Exercises Supine Exercises IR/ER Supine Exercise Name neutral, then 50 degrees abd Side bilateral Reps/Minutes 2 minutes Comments No resistance Standing Exercises Tennis ball Standing Exercise Name STM of R shd lateral and posterior Side right Equipment Used Tennis ball Reps/Minutes 4 min Manual Therapy Treatment Soft Tissue Mobilization pecs Body Location R Mobilization Type Sustained Pressure,Trigger Point Release Intensity/Depth Moderate Body Position Hooklying 1 Body Location Supraspinatus Mobilization Type Rolling,Sustained Pressure Intensity/Depth Moderate Body Position Hooklying Self-Care/Home Management Treatment Education Patient Education Home Exercise Program,Pain Management Other Education Discussed proceeding with surgery in the new year. Pt would like to continue with therapy until surgery. Tennis ball to roll out R shd added to HEP PT-OP-R Modalities Start: 04/26/20 14:22 Freq: Status: Active Protocol: Document 07/17/20 17:11 MA (Rec: 07/17/20 17:12 MA [email or web address]) Hot Pack/Cold Pack Treatment Ice Massage Location R supraspinatus tendon Patient Position Hooklying Treatment Duration (minutes) 5 Patient Tolerance Good PT-OP-T Assessment and Plan Start: 04/26/20 14:22 Freq: Status: Active Protocol: Document 07/22/20 12:07 MA (Rec: 07/22/20 12:59 MA [id number]) Physical Therapy Assessment Goals Three Impairment Pt experiences sleep disturbances due to shoulder pain Venetian Blind Installer Goal (LTG) Pt to report 4 nights of sleep undisturbed by shoulder pain over the course of a one week period. LTG Duration 06/26/20 Two Impairment Pt struggles to don/doff shirt due to pain Senior Care Goal (LTG) Pt to improve pain-free ROM of R shoulder to 120? both flexion and abduction in order to improve functional mobility to don/doff shirt. LTG Duration 06/26/20 One Impairment Pt does not have an appropriate home exercise program Short Term Goal (STG) Pt to be independent and compliant with an appropriate HEP STG Duration 05/26/20 Assessment Summary Assessment Pt had pain during R shd flexion at ~160 and abd at ~75 degrees. He was able to perform supine ER today with only 2/10 pain. Worked on STM with tennis ball for HEP. Pt feels the ice massage helps relieve pain, so continued ending treatment with ice. Discussed going through with R shd surgery per dr's comments . Pt wishes to continue with PT until the new year when he sees the dr again. Physical Therapy Plan Frequency and Duration Frequency of Treatment 2x/Week Duration of Treatment 2 months Plan of Care Start Date 04/26/20 Plan of Care End Date 06/26/20 Therapeutic Interventions Therapeutic Interventions Home Exercise Program,Joint Mobilizations,Manual Therapy, Patient/Caregiver Education, Self-Care/Home Management,Soft Tissue Mobilization, Therapeutic Activities, Therapeutic Exercises Next Visit Focus/Plan Next Note Type Treatment Note Next Visit Plan See how STM with tennis ball at home went. Ease back into P /AROM exercises, shd strengthening exercises and STM to supraspinatus [ End ]
--- NOTE | 2020-07-24 16:00 | PT.OTN ---
Current Diagnoses Pain in right shoulder (07/24/20) Stiffness of right shoulder, not elsewhere classified (07/24/20) Adhesive capsulitis of right shoulder (07/24/20) Other shoulder lesions, right shoulder (07/24/20) Physical Therapy Treatment Note PT-OP-A Visit Information Start: 04/26/20 14:22 Freq: Status: Active Protocol: Document 07/24/20 16:05 MA (Rec: 07/24/20 16:27 MA [email or web address]) Out-Patient Physical Therapy Visit Information Visit Information Visit Type Treatment Note Visit Start Time 15:15 Visit Stop Time 16:00 Total Visit Minutes 45 Visit Number 18 Number of MANDREL MAKER Visits 4 PT-OP-B Current Condition Start: 04/26/20 14:22 Freq: Status: Active Protocol: Document 04/26/20 13:45 DCW (Rec: 04/26/20 14:57 DCW [id number]) Current Condition History of Current Condition Onset Date June, Current Complaints Shoulder pain, stiffness, loss of functional mobility History of Current Condition Pt is a 64 year old male with a 10 month history of right shoulder pain and stiffness. Pt reports he was working with Physical Therapy at a different clinic for shoulder tendonitis, and must have overdone something at one point, and started experiencing increased shoulder pain. Pt reports that in August of 2019, he had a Cortisone injection by his PCP , which helped a little bit for a very short time. Pt was then scheduled to be seen by Dr Singh, however this visit was unfortunately canceled due to Covid-19 shut-down. Pt was finally able to see Dr Singh in December, where he got a Prednisone pack, which helped a lot. Additionally, at this time, pt also underwent an MRI, which showed a partial- thickness tear of the supraspinatus tendon, among other findings. Five weeks ago , pt had a follow-up, and received a second Cortisone injection, which helped a lot more than the first. Pt notes that his shoulder is about 80% now than what it had been, admits that it used to feel miserable. Pt notes continued pain trying to lift his arm, but I don't do that much. Pain is still affecting his sleep, however less now than it had been previously. Pt notes that he struggles to don/doff his shirts due to pain and immobility in his shoulder. Prior Treatments and Tests Right shoulder MRI: IMPRESSION : 1. Small focal high-grade bursal surface partial- thickness tear of the posterior distal supraspinatus tendon with corresponding tendinopathy. 2. Moderate infraspinatus tendinopathy without significant bearing. 3. Severe degenerative changes of the acromioclavicular joint may be resulting in subacromial impingement and clinical correlation is recommended. 4. Fluid within the subacromial subdeltoid bursa is likely reactive to the partial-thickness supraspinatus tendon tear. Please correlate clinically to exclude bursitis. 5. Edema about the inferior glenohumeral ligament is suspicious for a ligamentous sprain, but may be seen in the setting of adhesive capsulitis. 6. Degenerative changes of the labrum without a displaced tear evident. 7. Mild tendinopathy involving intra-articular portion of the biceps tendon. 8. Possible bone contusion of the greater tuberosity of the humeral head. No fractures. Per: Vicente Baumann M.D. on Treatment Goals Patient/Caregiver Goals I want my shoulder to get back to the way it was. PT-OP-C Subjective Start: 04/26/20 14:22 Freq: Status: Active Protocol: Document 07/24/20 16:05 MA (Rec: 07/24/20 16:27 MA [email or web address]) OP-PT Subjective Patient Comments Patient Comments Pt states his shoulder feels about the same now as last session. He used the tennis ball at home and feels he was better able to get to the sore spots around his shd and it felt much better after. He is going to discontinue therapy until after next dr visit on Aug.04 where he will discuss going ahead with recommended surgery. PT-OP-E Functional Tests Start: 04/26/20 14:22 Freq: Status: Active Protocol: Document 06/21/20 13:46 DCW (Rec: 06/21/20 14:00 DCW [id number]) Functional Tests Maríaey's Scratch Test Action 1- Left Posterior opposite shoulder Action 1- Right Anterior opposite shoulder Action 2- Left T1 Action 2- Right C3 Action 3- Left T8 Action 3- Right T2 PT-OP-F Manual Assessment Start: 04/26/20 14:22 Freq: Status: Active Protocol: Document 06/21/20 13:46 DCW (Rec: 06/21/20 14:00 DCW [id number]) Manual Assessments Joint Mobility Assessment Joint Mobility Assessment Stiffness throughout end-range ROM with PROM PT-OP-K Range of Motion Start: 04/26/20 14:22 Freq: Status: Active Protocol: Document 06/21/20 13:46 DCW (Rec: 06/21/20 14:00 DCW [id number]) Shoulder Goniometric Range of Motion Shoulder Right Passive Testing Position Sitting Flexion 114 Abduction 90 External Rotation at 0 degrees Abduction 38 Right Active Testing Position Sitting Flexion 119 Extension 30 Abduction 85 External Rotation at 0 degrees Abduction 54 Internal Rotation Behind Back (text) T2 Shoulder ROM Limitations Shoulder ROM Limitations Soft Tissue Tightness,Muscle Weakness,Muscle Tone,Pain PT-OP-L Special Tests Start: 04/26/20 14:22 Freq: Status: Active Protocol: Document 06/21/20 13:46 DCW (Rec: 06/21/20 14:00 DCW [id number]) Special Tests Shoulder Special Tests Painful Arc Test Results Positive R Passive ER Rotator Cuff Test Results Positive R Lift-Off Rotator Cuff Test Results Positive R Alvarenga Mayank Impingement Test Results Positive R PT-OP-M Strength Start: 04/26/20 14:22 Freq: Status: Active Protocol: Document 06/21/20 13:46 DCW (Rec: 06/21/20 14:00 DCW [id number]) Shoulder Strength Shoulder Manual Muscle Testing Right Flexion 2+ Poor+ Abduction (C5) 2+ Poor+ External Rotation 3 Fair PT-OP-Q Treatments Start: 04/26/20 14:22 Freq: Status: Active Protocol: Document 07/24/20 16:05 MA (Rec: 07/24/20 16:27 MA [email or web address]) Cardio Equipment Upper Body Ergometer (UBE) Duration (Minutes) 6 RPM 70 Seat Position 11 Other 3 minutes fwd/bkwd Therapeutic Exercises Supine Exercises PROM Supine Exercise Name Therapist assisted PROM ER/ABD /Flex Side right Protraction Supine Exercise Name Serratus Punch Side right Equipment Used 4# Reps/Minutes 2x10 IR/ER Supine Exercise Name neutral position Side bilateral Equipment Used 1# Reps/Minutes 2 minutes Standing Exercises 1 Standing Exercise Name Wall Circles with Ball Side right Equipment Used tennis ball Reps/Minutes 2x10 Comments Clockwise, counter-clockwise Manual Therapy Treatment Soft Tissue Mobilization pecs Body Location R Mobilization Type Sustained Pressure,Trigger Point Release Intensity/Depth Moderate Body Position Hooklying Parascapular mms Body Location R Mobilization Type Sustained Pressure,Trigger Point Release Intensity/Depth Moderate Body Position Sidelying 1 Body Location Supraspinatus Mobilization Type Rolling,Sustained Pressure Intensity/Depth Moderate Body Position Hooklying PT-OP-R Modalities Start: 04/26/20 14:22 Freq: Status: Active Protocol: Document 07/24/20 16:05 MA (Rec: 07/24/20 16:27 MA [email or web address]) Hot Pack/Cold Pack Treatment Ice Massage Location R supraspinatus tendon Patient Position Hooklying Treatment Duration (minutes) 5 Patient Tolerance Good PT-OP-T Assessment and Plan Start: 04/26/20 14:22 Freq: Status: Active Protocol: Document 07/24/20 16:05 MA (Rec: 07/24/20 16:27 MA [email or web address]) Physical Therapy Assessment Goals Three Impairment Pt experiences sleep disturbances due to shoulder pain Intermediate Goal (LTG) Pt to report 4 nights of sleep undisturbed by shoulder pain over the course of a one week period. LTG Duration 06/26/20 Two Impairment Pt struggles to don/doff shirt due to pain Senior Director Of Strategy Goal (LTG) Pt to improve pain-free ROM of R shoulder to 120? both flexion and abduction in order to improve functional mobility to don/doff shirt. LTG Duration 06/26/20 One Impairment Pt does not have an appropriate home exercise program Short Term Goal (STG) Pt to be independent and compliant with an appropriate HEP STG Duration 05/26/20 Progress Towards Goals Progress Towards Goals Slow Progress - Other Progress Comments Pt was unable to get into therapy right away when initial injury happened due to covid. Pt has not progressed well this year due to pain and delayed therapy causing restricted ROM. He will meet with August 04 to schedule recommended surgery. Assessment Summary Assessment Pt is holding steady at 2/10 pain during all shd mobility exercises. Pt feels he gets relief from the ice massage over supraspinatus tendon and from using a tennis ball for STM at home. Due to slow progression over the past few months in therapy, pt is going d/c therapy and go ahead with recommended surgery. Physical Therapy Plan Frequency and Duration Frequency of Treatment 2x/Week Duration of Treatment 2 months Plan of Care Start Date 04/26/20 Plan of Care End Date 06/26/20 Therapeutic Interventions Therapeutic Interventions Home Exercise Program,Joint Mobilizations,Manual Therapy, Patient/Caregiver Education, Self-Care/Home Management,Soft Tissue Mobilization, Therapeutic Activities, Therapeutic Exercises Next Visit Focus/Plan Next Note Type Treatment Note Next Visit Plan Ease back into P/AROM exercises, shd strengthening exercises and STM to supraspinatus
--- NOTE | 2020-10-17 11:21 | PT.OPDS ---
Current Diagnoses Pain in right shoulder (07/24/20) Stiffness of right shoulder, not elsewhere classified (07/24/20) Adhesive capsulitis of right shoulder (07/24/20) Other shoulder lesions, right shoulder (07/24/20) Visit Care Team Role Provider Type Luis Acevedo PA-C Primary Care Provider Non-Staff Specialty: Family Practice Address: [address] [place] [address], [address], [place], [address] Email: Family Provider Specialty: Address: Phone: Fax: Email: Valente Singh DO Attending Provider Non-Staff Referring Provider Specialty: Orthopedics Address: [facility], [place], [address] Email: Visit Number Visit Number 18 Discharge Summary PT-OP-B Current Condition Start: 04/26/20 14:22 Freq: Status: Active Protocol: Document 04/26/20 13:45 DCW (Rec: 04/26/20 14:57 DCW [id number]) Current Condition History of Current Condition Onset Date June, Current Complaints Shoulder pain, stiffness, loss of functional mobility History of Current Condition Pt is a 64 year old male with a 10 month history of right shoulder pain and stiffness. Pt reports he was working with Physical Therapy at a different clinic for shoulder tendonitis, and must have overdone something at one point, and started experiencing increased shoulder pain. Pt reports that in August of 2019, he had a Cortisone injection by his PCP , which helped a little bit for a very short time. Pt was then scheduled to be seen by Dr Singh, however this visit was unfortunately canceled due to Covid-19 shut-down. Pt was finally able to see Dr Singh in December, where he got a Prednisone pack, which helped a lot. Additionally, at this time, pt also underwent an MRI, which showed a partial- thickness tear of the supraspinatus tendon, among other findings. Five weeks ago , pt had a follow-up, and received a second Cortisone injection, which helped a lot more than the first. Pt notes that his shoulder is about 80% now than what it had been, admits that it used to feel miserable. Pt notes continued pain trying to lift his arm, but I don't do that much. Pain is still affecting his sleep, however less now than it had been previously. Pt notes that he struggles to don/doff his shirts due to pain and immobility in his shoulder. Prior Treatments and Tests Right shoulder MRI: IMPRESSION : 1. Small focal high-grade bursal surface partial- thickness tear of the posterior distal supraspinatus tendon with corresponding tendinopathy. 2. Moderate infraspinatus tendinopathy without significant bearing. 3. Severe degenerative changes of the acromioclavicular joint may be resulting in subacromial impingement and clinical correlation is recommended. 4. Fluid within the subacromial subdeltoid bursa is likely reactive to the partial-thickness supraspinatus tendon tear. Please correlate clinically to exclude bursitis. 5. Edema about the inferior glenohumeral ligament is suspicious for a ligamentous sprain, but may be seen in the setting of adhesive capsulitis. 6. Degenerative changes of the labrum without a displaced tear evident. 7. Mild tendinopathy involving intra-articular portion of the biceps tendon. 8. Possible bone contusion of the greater tuberosity of the humeral head. No fractures. Per: Vicente Baumann M.D. on Treatment Goals Patient/Caregiver Goals I want my shoulder to get back to the way it was. PT-OP-C Subjective Start: 04/26/20 14:22 Freq: Status: Active Protocol: Document 07/24/20 16:05 MA (Rec: 07/24/20 16:27 MA [email or web address]) OP-PT Subjective Patient Comments Patient Comments Pt states his shoulder feels about the same now as last session. He used the tennis ball at home and feels he was better able to get to the sore spots around his shd and it felt much better after. He is going to discontinue therapy until after next dr visit on Aug.04 where he will discuss going ahead with recommended surgery. PT-OP-E Functional Tests Start: 04/26/20 14:22 Freq: Status: Active Protocol: Document 06/21/20 13:46 DCW (Rec: 06/21/20 14:00 DCW [id number]) Functional Tests Maríaey's Scratch Test Action 1- Left Posterior opposite shoulder Action 1- Right Anterior opposite shoulder Action 2- Left T1 Action 2- Right C3 Action 3- Left T8 Action 3- Right T2 PT-OP-F Manual Assessment Start: 04/26/20 14:22 Freq: Status: Active Protocol: Document 06/21/20 13:46 DCW (Rec: 06/21/20 14:00 DCW [id number]) Manual Assessments Joint Mobility Assessment Joint Mobility Assessment Stiffness throughout end-range ROM with PROM PT-OP-K Range of Motion Start: 04/26/20 14:22 Freq: Status: Active Protocol: Document 06/21/20 13:46 DCW (Rec: 06/21/20 14:00 DCW [id number]) Shoulder Goniometric Range of Motion Shoulder Right Passive Testing Position Sitting Flexion 114 Abduction 90 External Rotation at 0 degrees Abduction 38 Right Active Testing Position Sitting Flexion 119 Extension 30 Abduction 85 External Rotation at 0 degrees Abduction 54 Internal Rotation Behind Back (text) T2 Shoulder ROM Limitations Shoulder ROM Limitations Soft Tissue Tightness,Muscle Weakness,Muscle Tone,Pain PT-OP-L Special Tests Start: 04/26/20 14:22 Freq: Status: Active Protocol: Document 06/21/20 13:46 DCW (Rec: 06/21/20 14:00 DCW [id number]) Special Tests Shoulder Special Tests Painful Arc Test Results Positive R Passive ER Rotator Cuff Test Results Positive R Lift-Off Rotator Cuff Test Results Positive R Alvarenga Mayank Impingement Test Results Positive R PT-OP-M Strength Start: 04/26/20 14:22 Freq: Status: Active Protocol: Document 06/21/20 13:46 DCW (Rec: 06/21/20 14:00 DCW [id number]) Shoulder Strength Shoulder Manual Muscle Testing Right Flexion 2+ Poor+ Abduction (C5) 2+ Poor+ External Rotation 3 Fair PT-OP-T Assessment and Plan Start: 04/26/20 14:22 Freq: Status: Active Protocol: Document 10/17/20 11:19 DCW (Rec: 10/17/20 11:20 DCW [id number]) Physical Therapy Assessment Assessment Summary Assessment Pt to discharge from skilled therapy to proceed with surgical intervention following prior PT treatment session. Pt will require new referral in order to return to PT post-op if necessary. Physical Therapy Plan Discharge Physical Therapy Discharge Reasons Change in Medical Status
== END 2020-10-25 11:26 ==
LOC: PHYS 15:15
PROVIDERS: PCP Physician Assistant; Referring Provider Orthopaedic Surgery; Visit Provider Orthopaedic Surgery
DX: M75.81 Other shoulder lesions, right shoulder (principal); M75.01 Adhesive capsulitis of right shoulder; M25.611 Stiffness of right shoulder, not elsewhere classified; M25.511 Pain in right shoulder
CPT/HCPCS: 97010; 97014; 97110; 97140; 97161; G0283

== ENCOUNTER → 2020-10-25 10:15 | Outpatient (CLI) | payer OTHER, SELFPAY ==
[2020-10-25] MEDS: COVID-19 VACC #1, MRNA(MOD) 100 MCG/0.5 ML VIAL IM (10:20)
== END ==
PROVIDERS: PCP Physician Assistant; Visit Provider Internal Medicine
DX: Z23 Encounter for immunization (principal)
CPT/HCPCS: 0011A; 91301

== ENCOUNTER → 2020-11-22 10:35 | Outpatient (CLI) | payer OTHER, SELFPAY ==
[2020-11-22] MEDS: COVID-19 VACC #2, MRNA(MOD) 100 MCG/0.5 ML VIAL IM (10:42)
== END ==
PROVIDERS: PCP Physician Assistant; Visit Provider Internal Medicine
DX: Z23 Encounter for immunization (principal)
CPT/HCPCS: 0012A; 91301

== ENCOUNTER → 2022-08-07 14:08 | Outpatient (CLI) | payer MEDICARE, OTHER, SELFPAY ==
[2022-08-07 15:25] LABS: Add Manual Diff / Slide Review NO; Basophils Absolute Auto 0 /uL (0-100); Basophils Percent Auto 0.6 % (0-2); Eosinophils Absolute Auto 100 /uL (0-450); Eosinophils Percent Auto 2.2 % (2-4); Hematocrit 42.7 % (41-53); Hemoglobin 14.8 g/dL (13.5-17.5); Lymphocytes Absolute Auto 1800 /uL (1100-4500); Lymphocytes Percent Auto 28.6 % (25-40); Mean Corpuscular HGB Conc 34.6 % (30-36); Mean Corpuscular Hemoglobin 32.6 PG (26-34); Mean Corpuscular Volume 94.1 fL (80-100); Monocytes Absolute Auto 400 /uL (0-900); Monocytes Percent Auto 6.1 % (3-14); Neutrophils Absolute Auto 4000 /uL (1500-7000); Neutrophils Percent Auto 62.5 % (50-75); Platelet Count 252 X10^3/uL (150-400); Red Blood Cell Count 4.53 X10^6/uL (4.5-5.9); Red Cell Distribution Width 13.5 % (11.6-14.8); White Blood Cell Count 6.4 X10^3/uL (4.5-11.0)
[2022-08-07 15:39] LABS: Alanine Aminotransferase 28 IU/L (<50); Albumin 4.6 g/dL (3.5-5.0); Albumin Globulin Ratio 1.4 (1.0-2.8); Alkaline Phosphatase 78 U/L (38-126); Aspartate Aminotransferase 37 IU/L (17-59); BUN Creatinine Ratio 23.8 (6-22); Bilirubin Total 0.5 mg/dL (0.2-1.3); Blood Urea Nitrogen 19 mg/dL (9-20); Calcium 9.3 mg/dL (8.4-10.2); Carbon Dioxide 29 mmol/L (22-32); Chloride 104 mmol/L (98-107); Cholesterol 174 mg/dL (140-199); Estimated Glomerular Filt Rate > 60 mL/min (>60); Globulin 3.2 g/dL (1.7-4.1); Glucose 142 mg/dL (80-110); HDL Cholesterol 59 mg/dL (40-60); HEMOLYSIS 16 (0-50); LDL Cholesterol Calculated 77 mg/dL (<100); Potassium 4.4 mmol/L (3.4-5.1); Sodium 142 mmol/L (137-145); Total Protein 7.8 g/dL (6.3-8.2); Triglycerides 189 mg/dL (35-150)
[2022-08-07 15:41] LABS: Hemoglobin A1C% w Est Avg Glu 5.5 % (4.0-6.0)
[2022-08-07 16:09] LABS: Prostate Specific Antigen 1.59 ng/mL (0.10-4.00)
== END ==
PROVIDERS: PCP Physician Assistant; Referring Provider Physician Assistant; Visit Provider Physician Assistant
DX: Z01.89 Encounter for other specified special examinations (principal); I25.10 Atherosclerotic heart disease of native coronary artery without angina pectoris; E11.9 Type 2 diabetes mellitus without complications; I10 Essential (primary) hypertension; Z12.5 Encounter for screening for malignant neoplasm of prostate
CPT/HCPCS: 36415; 80053; 80061; 83036; 84153; 84443; 85025; G0103

== ENCOUNTER → 2023-08-17 12:17 | Outpatient (CLI) | payer MEDICARE, SELFPAY ==
--- NOTE | 2023-08-17 12:20 | DI.US.S_ITS ---
PROCEDURE: US ABD AORTA ANEURYSM SCREEN INDICATIONS: SCREENING TECHNIQUE: Real time scanning was performed of the aorta and iliac arteries, with image documentation. COMPARISON: None. FINDINGS: Aorta: Proximal aortic diameter measures 2.7 cm. Mid-aorta measures 2.0 cm. Distal aortic diameter is mild1.6 cm. Iliac arteries: Right common iliac artery measures 1.3 cm. Left common iliac artery measures 1.0 cm. IMPRESSION: No aneurysmal dilation. Dictated by: Akua Leos M.D. on 08/17/2023 at 19:03 Approved by: Akua Leos M.D. on 08/17/2023 at 19:04
== END ==
LOC: US 12:19
PROVIDERS: PCP Family Medicine; Referring Provider Family Medicine; Visit Provider Family Medicine
DX: Z13.6 Encounter for screening for cardiovascular disorders (principal)
CPT/HCPCS: 76706

== ENCOUNTER → 2023-08-25 07:30 | Outpatient (CLI) | payer MEDICARE, SELFPAY ==
[2023-08-25 08:31] LABS: Hemoglobin A1C% w Est Avg Glu 5.2 % (4.0-6.0)
[2023-08-25 08:50] LABS: Alanine Aminotransferase 21 IU/L (<50); Albumin 4.3 g/dL (3.5-5.0); Albumin Globulin Ratio 1.6 (1.0-2.8); Alkaline Phosphatase 63 U/L (38-126); Aspartate Aminotransferase 29 IU/L (17-59); BUN Creatinine Ratio 22.1 (6-22); Bilirubin Total 0.8 mg/dL (0.2-1.3); Blood Urea Nitrogen 21 mg/dL (9-20); Calcium 9.6 mg/dL (8.4-10.2); Carbon Dioxide 28 mmol/L (22-32); Chloride 101 mmol/L (98-107); Cholesterol 107 mg/dL (140-199); Estimated Glomerular Filt Rate > 60 mL/min (>60); Globulin 2.7 g/dL (1.7-4.1); Glucose 104 mg/dL (80-110); HDL Cholesterol 52 mg/dL (40-60); HEMOLYSIS < 15 (0-50); LDL Cholesterol Calculated 37 mg/dL (<100); Potassium 4.4 mmol/L (3.4-5.1); Sodium 137 mmol/L (137-145); Triglycerides 88 mg/dL (35-150)
== END ==
PROVIDERS: PCP Family Medicine; Referring Provider Family Medicine; Visit Provider Family Medicine
DX: R73.01 Impaired fasting glucose (principal); I10 Essential (primary) hypertension; E78.5 Hyperlipidemia, unspecified; G47.00 Insomnia, unspecified; Z00.00 Encounter for general adult medical examination without abnormal findings; Z13.6 Encounter for screening for cardiovascular disorders
CPT/HCPCS: 36415; 80053; 80061; 83036

== ENCOUNTER → 2024-08-15 08:11 | Outpatient (CLI) | payer MEDICARE, SELFPAY ==
[2024-08-15 08:50] LABS: Hematocrit 42.5 % (41-53); Hemoglobin 14.9 g/dL (13.5-17.5); Mean Corpuscular Hemoglobin 33.3 PG (26-34); Mean Corpuscular Volume 95.2 fL (80-100); Platelet Count 228 X10^3/uL (150-400); Red Blood Cell Count 4.46 X10^6/uL (4.5-5.9); Red Cell Distribution Width 13.3 % (11.6-14.8); White Blood Cell Count 6.1 X10^3/uL (4.5-11.0)
[2024-08-15 09:34] LABS: Alanine Aminotransferase 33 IU/L (<50); Albumin 4.6 g/dL (3.5-5.0); Alkaline Phosphatase 67 U/L (38-126); Aspartate Aminotransferase 36 IU/L (17-59); BUN Creatinine Ratio 21.3 (6-22); Bilirubin Total 0.8 mg/dL (0.2-1.3); Blood Urea Nitrogen 19 mg/dL (9-20); Calcium 9.5 mg/dL (8.4-10.2); Carbon Dioxide 29 mmol/L (22-32); Chloride 103 mmol/L (98-107); Cholesterol 134 mg/dL (140-199); Estimated Glomerular Filt Rate > 60 mL/min (>60); Globulin 2.3 g/dL (1.7-4.1); Glucose 111 mg/dL (80-110); HDL Cholesterol 54 mg/dL (40-60); HEMOLYSIS < 15 (0-50); LDL Cholesterol Calculated 49 mg/dL (<100); Potassium 4.6 mmol/L (3.4-5.1); Sodium 138 mmol/L (137-145); Total Protein 6.9 g/dL (6.3-8.2); Triglycerides 154 mg/dL (35-150)
[2024-08-15 09:40] LABS: Hemoglobin A1C% w Est Avg Glu 5.2 % (4.0-6.0)
[2024-08-15 10:00] LABS: Prostate Specific Antigen Scrn 1.33 ng/mL (0.1-4.0)
[2024-08-15 10:35] LABS: Hep C Virus Ab w/Reflex Quant NEGATIVE s/c (NEGATIVE)
== END ==
PROVIDERS: PCP Family Medicine; Referring Provider Family Medicine; Visit Provider Family Medicine
DX: Z00.00 Encounter for general adult medical examination without abnormal findings (principal); I10 Essential (primary) hypertension; R73.01 Impaired fasting glucose; Z12.5 Encounter for screening for malignant neoplasm of prostate; E78.5 Hyperlipidemia, unspecified; G47.00 Insomnia, unspecified; Z11.59 Encounter for screening for other viral diseases
CPT/HCPCS: 36415; 80053; 80061; 83036; 85027; 86803; G0103